=== PATIENT | male | born 1935 | race Caucasian/White ===

== ENCOUNTER 2017-04-29 10:24 | Day surgery (SDC) | payer MEDICARE, BC ==
[2017-04-23 16:37] VITALS: BMI 26.2
[~2017-04-29 10:24] MED LIST: DEXAMETHASONE SOD PHOSPHATE 10 MG/ML 1 ML VIAL IV ONE; FAMOTIDINE 20 MG/2 ML VIAL IV ONE; HYDROmorphone 1 MG/ML 1 ML SYRINGE IVP PRN; LACTATED RINGERS 1,000 ML IV SCH; LIDOCAINE 1% 20 ML VIAL (10MG/ML) FOR IV START INTRADERMA PRN; MIDAZOLAM 2 MG/2 ML VIAL IV PRN; ONDANSETRON 4 MG/2 ML VIAL IVP ONE; Pre Op ABX Message 1 EACH MISC MISCELLANE ONE; SCOPOLAMINE 1.5MG/72HR PATCH TRANSDERM ONE
[2017-04-29] MEDS ORDERED: ePHEDrine SULFATE/0.9% NACL/PF 50 MG/5 ML SYRINGE IV ONE (12:42)
[2017-04-29] MEDS ORDERED: PROPOFOL 10 MG/ML 20 ML VIAL IV ONE (12:42)
[2017-04-29] MEDS ORDERED: fentaNYL (PF) 50 MCG/ML 2 ML AMP ONE (12:42)
[2017-04-29] MEDS ORDERED: MIDAZOLAM 2 MG/2 ML VIAL ONE (12:42)
[2017-04-29] MEDS ORDERED: SUCCINYLCHOLINE CHLORIDE 100 MG/5 ML SYR IV ONE (12:42)
[2017-04-29] MEDS ORDERED: LIDOCAINE 1% INJ 10MG/ML (20 ML MDV) ONE (12:42)
[2017-04-29] MEDS ORDERED: BACITRACIN 500 UNIT/GM OINT 28.4 GM TUBE TOPICAL ONE (13:10)
[2017-04-29] MEDS ORDERED: BUPIVACAIN-EPI 0.5%-1:200,000 30 ML VIAL SQ ONE (13:10)
[2017-04-29] MEDS ORDERED: LIDOCAINE 2%-EPI 1:100,000 20 ML VIAL SQ ONE (13:11)
[2017-04-29 14:27] VITALS: RESP 16
[2017-04-29 14:32] VITALS: TEMP 97.8
--- NOTE | 2017-04-29 14:43 | P.OP ---
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 Anesthesia: GETA Surgeon: Wallace Guerra Estimated Blood Loss (ml): 5 Pathology: other (Left auricular specimen sent for frozen section) Condition: stable Disposition: PACU Indications for Procedure: This patient had a previous biopsy of his left ear which demonstrated a basal cell carcinoma of the anterior skin of the left ear. Wider resection was recommended. All risks, benefits, and alternative therapies were discussed in detail. Consent was obtained and all questions were answered. Operative Findings: The associated skin was removed from the left anterior part of the auricle and the deep margins came close therefore a resection of the auricular cartilage the to this lesion was required. The skin graft was placed over the posterior auricular skin. Description of Procedure: This patient was taken to the operative room and placed in the supine position. A general inhalation anesthetic was administered to the patient by mask and subsequently intubated by the department of anesthesia with a functioning IV line in place. Patient was monitored throughout the entire case by the department of anesthesia. The left ear was anesthetized sterilely prepped and draped in the usual fashion. The lesion was marked with 4 mm margins and excised with a 15 blade delicate plastic scissors and a Brown-Adson forceps and sent for frozen section with orientation sutures. The margins came back close the deep margin the lateral margins BACK negative. The cartilage of the associated area was then removed with a 15 blade and sent for permanent. A blue suture was placed on the adjacent margin. This left the posterior rectus skin in place. We harvested skin from the left postauricular region with an incision measuring 4.2 x 2.1 cm. The skin was removed and the donor site was closed in a complex fashion utilizing wide undermining in all directions. We prepped the skin edge and close this in a complex fashion utilizing a 4-0 Monocryl in the deep subcutaneous tissue 4-0 Monocryl in the deep dermal layer 4 -0 Monocryl and the superficial dermal layer and the skin was closed with a 50 rapid Vicryl in a running nonlocking fashion. Excellent approximation was obtained. The skin was then cut to size and placed as an overlay graft. A bolster dressing was applied and a [place]S ear dressing was placed. The patient tolerated this well and follow-up will be in the office in 1 week for recheck. Patient is to remove the Tali ear dressing in the next few hours.
[2017-04-29 16:00] VITALS: BP 131/76; PULSE 108
== END 2017-04-29 16:30 | disposition home or self-care (01) ==
LOC: OR 10:24
PROVIDERS: ATTEND Otolaryngology
DX: C44.219 Basal cell carcinoma of skin of left ear and external auricular canal (principal); I10 Essential (primary) hypertension; E78.5 Hyperlipidemia, unspecified; I48.91 Unspecified atrial fibrillation; J44.9 Chronic obstructive pulmonary disease, unspecified; G47.33 Obstructive sleep apnea (adult) (pediatric); K21.9 Gastro-esophageal reflux disease without esophagitis; Z87.891 Personal history of nicotine dependence; Z79.01 Long term (current) use of anticoagulants; Z79.51 Long term (current) use of inhaled steroids; Z79.899 Other long term (current) drug therapy
CPT/HCPCS: 69110; 15260; J2250; J1100; J2405; J2001; J3010; J0330; J2704; 88305; 88331; 88332

== ENCOUNTER → 2018-06-10 | Outpatient (CLI) | payer MEDICARE, BC ==
--- NOTE | 2018-06-13 12:05 | XR ---
EXAMINATION TYPE: XR cervical spine comp DATE OF EXAM: 06/10/2018 COMPARISON: None HISTORY: 82-year-old male with cervicalgia, neck pain started 2 days ago TECHNIQUE: 5 and lateral views FINDINGS: Degenerative changes of the C1 dens articulation. No predental space widening. There is grade 2 anter olisthesis at C3-C4 and grade 1 anterolisthesis at C3-C4. Hypertrophic facet arthropathy. Moderate to advanced dissection for degenerative change at C4-C5 and moderate at additional levels. On the right, there is moderate bony spondylotic neural foraminal narrowing at C3-C4 and mild additio nal levels. On the left, there is moderate spondylotic neural foraminal narrowing at C4-C5 and mild at C3-C4. Normal odontoid view. Some nonspecific heterotopic ossification posterior soft tissues at the C5 leve l. IMPRESSION: 1. Moderate to advanced spondylotic change with grade 2 anterolisthesis at C4-C5 and grade 1 anteroli sthesis at C3-C4. 2. Moderate bony spondylotic neuroforaminal narrowing on the right at C3-C4 and on the left at C4-C5.
== END ==
LOC: RADXRMAIN 12:27
PROVIDERS: ATTEND Internal Medicine
DX: M99.71 Connective tissue and disc stenosis of intervertebral foramina of cervical region (principal); M43.12 Spondylolisthesis, cervical region; M47.812 Spondylosis without myelopathy or radiculopathy, cervical region
CPT/HCPCS: 72050

== ENCOUNTER → 2019-08-03 | Outpatient (CLI) | payer MEDICARE, BC ==
--- NOTE | 2019-08-03 12:30 | XR ---
EXAMINATION TYPE: XR chest 2V DATE OF EXAM: 08/03/2019 COMPARISON: 04/20/2016 TECHNIQUE: PA and lateral views submitted. HISTORY: Shortness of breath FINDINGS: Heart is enlarged and is atherosclerotic change aorta. Subsegmental changes both lung bases. No overt failure. Biapical pleural thickening. No pneumothorax. Degenerative change of the spine and atherosc lerotic change aorta. Mild hyperinflation. IMPRESSION: 1. Cardiomegaly with basilar atelectasis favored over infiltrate correlate clinically.
== END | disposition home or self-care (01) ==
LOC: RADXRMAIN 11:55
PROVIDERS: ATTEND Internal Medicine
DX: J98.11 Atelectasis (principal); I51.7 Cardiomegaly
CPT/HCPCS: 71046

== ENCOUNTER → 2019-11-17 | Outpatient (CLI) | payer MEDICARE, BC ==
[2019-11-17 10:57] LABS: HCT 36.9 % (39.0-53.0); HGB 12.7 gm/dL (13.0-17.5); MCH 30.4 pg (25.0-35.0); MCHC 34.3 g/dL (31.0-37.0); MCV 88.6 fL (80.0-100.0); Mean Platelet Volume 7.8; Platelet Count 177 k/uL (150-450); RBC 4.17 m/uL (4.30-5.90); RDW 13.9 % (11.5-15.5); WBC 4.4 k/uL (3.8-10.6)
[2019-11-17 16:21] LABS: Anion Gap 11.6 mmol/L (4.00-12.00); Carbon Dioxide 34.4 mmol/L (21.6-31.8); Chol/HDL Ratio 2.84; LDL Cholesterol,Calculated 87.2 mg/dL (0.0-131.0); Non-African American GFR(CKD) 30.2 (60.0-200.0); VLDL Calculation 15.8 mg/dL (5.00-40.00)
== END | disposition home or self-care (01) ==
LOC: LABWHC1 09:50
PROVIDERS: ATTEND Internal Medicine Cardiovascular Disease
DX: E78.2 Mixed hyperlipidemia (principal)
CPT/HCPCS: 36415; 80051; 80061; 82565; 84450; 84460; 84520; 85027

== ENCOUNTER → 2019-12-06 | Outpatient (CLI) | payer MEDICARE, BC | END | disposition home or self-care (01) | LOC: CPPFTMAIN 09:02 | PROVIDERS: ATTEND Internal Medicine | DX: J44.9 Chronic obstructive pulmonary disease, unspecified (principal); R94.2 Abnormal results of pulmonary function studies | CPT/HCPCS: 94060; 94726; 94729 ==

== ENCOUNTER → 2020-01-05 | Outpatient (CLI) | payer MEDICARE, BC ==
--- NOTE | 2020-01-05 10:28 | US ---
EXAMINATION TYPE: US abdomen complete DATE OF EXAM: 01/05/2020 COMPARISON: NONE CLINICAL HISTORY: R94.5 ABN LIVER FUNCTION RESULTS. Patient stated takes at least 14 medications; gal lbladder removed; on Oxygen EXAM MEASUREMENTS: Liver Length: 12.6 cm Gallbladder Wall: surgically removed CBD: 0.3 cm Spleen: 11.2 cm Right Kidney: 9.0 x 7.0 x 3.8 cm Left Kidney: 9.1 x 4.4 x 4.1 cm Pancreas: hyperechoic, mid and tail obscured by overlying bowel gas Liver: hyperechoic periportal wall brightness is noted throughout; mildly heterogeneous Gallbladder: surgically removed Evidence for sonographic Munoz's sign: no CBD: wnl Spleen: wnl Right Kidney: No hydronephrosis or masses seen Left Kidney: No hydronephrosis or masses seen Upper IVC: wnl Abd Aorta: size is wnl at upper aorta as mid and distal aorta are obscured by overlying bowel gas. Bilateral pleural effusions are noted. Small amount of ascites is seen in RUQ and RLQ. IMPRESSION: 1. Moderate fatty infiltration liver. 2. Small bilateral pleural effusions
== END | disposition home or self-care (01) ==
LOC: RADUSWWP 08:53
PROVIDERS: ATTEND Internal Medicine
DX: K76.0 Fatty (change of) liver, not elsewhere classified (principal)
CPT/HCPCS: 76700

== ENCOUNTER 2020-01-20 13:48 | Inpatient (IN) | payer MEDICARE, BC ==
[2020-01-20] MEDS ORDERED: SODIUM CHLORIDE 0.9% 1,000 ML IV STA (13:52)
--- NOTE | 2020-01-20 13:58 | ED ---
SOB HPI - General Stated Complaint: SOB Time Seen by Provider: 01/20/20 13:48 Source: patient, EMS, RN notes reviewed Mode of arrival: EMS - History of Present Illness Initial Comments: This 84-year-old male with a history of COPD who uses 2 L of oxygen per day who states he been short of breath for about a week but got really bad this morning. Out of his medication that he uses at home. He denies any overt fevers chills sweats or chest pain. No other modifying factors. MD Complaint: shortness of breath - Related Data Home Medications Medication Instructions Recorded Confirmed Atorvastatin [Lipitor] 40 mg PO HS 04/12/14 04/23/17 Citalopram Hydrobromide 20 mg PO HS 04/12/14 04/23/17 [Citalopram HBr] Furosemide 20 mg PO QAM 04/12/14 04/29/17 Levothyroxine Sodium [Synthroid] 25 mcg PO QAM 04/12/14 04/29/17 Omeprazole 20 mg PO HS 04/12/14 04/29/17 Warfarin [Coumadin] 5 mg PO DAILY 04/12/14 04/23/17 Zolpidem Tartrate 10 mg PO HS PRN 04/12/14 04/29/17 Digoxin [Lanoxin] 250 mcg PO QAM 03/30/16 04/29/17 Fluticasone Nasal [place] [Flonase 1 spray NASAL DAILY 03/30/16 04/29/17 Nasal [place]] Fluticasone/Vilanterol [Breo 2 puff INHALATION DAILY 03/30/16 04/29/17 Ellipta 100-25 Mcg Iinhaler] Verapamil HCl [Verapamil ER] 120 mg PO HS 03/30/16 04/29/17 Multivitamins, Thera [Multivitamin 1 tab PO DAILY 04/23/17 04/23/17 (formulary)] Previous Rx's Medication Instructions Recorded Ferrous Sulfate [Feosol] 324 mg PO BID #60 tablet. 04/20/14 Hydrocodone/Acetaminophen [[place] 1 - 2 each PO Q6HR PRN #90 tab 04/20/14 5-325] Amoxicillin/Potassium Clav 1 each PO Q12HR #14 tab 04/29/17 [Augmentin 875-125 Tablet] Hydrocodone/Acetaminophen [[place] 1 - 2 each PO Q6HR PRN #40 tab 04/29/17 5-325] predniSONE [Deltasone] 20 mg PO DIRECTED #15 tab 04/29/17 Allergies Allergy/AdvReac Type Severity Reaction Status Date / Time No Known Allergies Allergy Verified 01/20/20 15:11 Review of Systems ROS Statement: Those systems with pertinent positive or pertinent negative responses have been documented in the HPI. ROS Other: All systems not noted in ROS Statement are negative. Past Medical History Past Medical History: Atrial Fibrillation, Cancer, COPD, GERD/Reflux, Hyperlipidemia, Hypertension, Osteoarthritis (OA), Sleep Apnea/CPAP/BIPAP, Thyroid Disorder Additional Past Medical History / Comment(s): NO CPAP. 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 History of Any Multi-Drug Resistant Organisms: None Reported Past Surgical History: Adenoidectomy, Cholecystectomy, Hernia Repair, Joint Replacement, Orthopedic Surgery, Tonsillectomy Additional Past Surgical History / Comment(s): TOTAL L KNEE TODAY 04/17/14 Past Anesthesia/Blood Transfusion Reactions: No Reported Reaction Past Psychological History: Depression Past Alcohol Use History: None Reported Additional Past Alcohol Use History / Comment(s): QUIT 5 YEARS (2010), SMOKED 62YR, 1 PPD. Past Drug Use History: None Reported - Past Family History Brother(s) Family Medical History: Cancer Additional Family Medical History / Comment(s): BROTHER OF LUNG CANCER. HE WAS A SMOKER. Son(s) Family Medical History: Cancer Father Family Medical History: No Reported History Additional Family Medical History / Comment(s): FATHER OF 89 YRS. General Exam - General Exam Comments Initial Comments: This is a well-developed sec appearing male who is awake alert oriented 3 General appearance: alert, anxious, in distress Head exam: Present: atraumatic, normocephalic, normal inspection Eye exam: Present: normal appearance, PERRL, EOMI. Absent: scleral icterus, conjunctival injection, periorbital swelling ENT exam: Present: mucous membranes dry Neck exam: Present: normal inspection, full ROM, other (No stridor JVD or bruits). Absent: tenderness, meningismus, lymphadenopathy Respiratory exam: Present: respiratory distress, wheezes, decreased breath sounds. Absent: rales, rhonchi, stridor Cardiovascular Exam: Present: normal rhythm, tachycardia. Absent: systolic murmur, diastolic murmur, rubs, gallop, clicks GI/Abdominal exam: Present: soft, normal bowel sounds. Absent: distended, tenderness, guarding, rebound, rigid Extremities exam: Present: normal inspection, full ROM, normal capillary refill. Absent: tenderness, pedal edema, joint swelling, calf tenderness Back exam: Present: normal inspection Neurological exam: Present: alert, oriented X3, CN II-XII intact Psychiatric exam: Present: normal affect, normal mood Skin exam: Present: warm, dry, intact, normal color. Absent: rash Course Vital Signs 01/20/20 01/20/20 01/20/20 14:04 14:25 14:30 Temperature 100.7 F H Pulse Rate 123 H 125 H 122 H Respiratory 32 H 30 H Rate Blood Pressure 188/71 188/71 O2 Sat by Pulse 93 L 48 L Oximetry 01/20/20 01/20/20 01/20/20 14:39 14:43 15:00 Temperature Pulse Rate 126 H 125 H 103 H Respiratory 26 H 20 Rate Blood Pressure 131/55 131/55 O2 Sat by Pulse 96 88 L Oximetry 01/20/20 15:30 Temperature Pulse Rate 104 H Respiratory 19 Rate Blood Pressure 127/77 O2 Sat by Pulse 99 Oximetry - Reevaluation(s) Reevaluation #1: 01/20/20 16:23 Reevaluation the patient's initial treatment revealed much improvement after the BiPAP was applied. Patient is resting comfortably in his vital signs did start to normalize. Reevaluation #2: 01/20/20 16:25 I did perform a focused exam of the patient does demonstrate improved lung sounds he is awake alert male breast sounds best seen on the right. Apparently within normal limits no peripheral edema seen at this time Reevaluation #3: 01/20/20 16:26 The lactic acid is likely secondary to Medical Decision Making - Medical Decision Making I did discuss findings with the patient's was present patient will be admitted case is discussed with Dr. Hsu - Lab Data Result diagrams: 01/20/20 15:40 01/20/20 15:40 Lab Results 01/20/20 01/20/20 01/20/20 Range/Units 15:40 15:40 15:40 WBC 4.6 (3.8-10.6) k/uL RBC 3.88 L (4.30-5.90) m/uL Hgb 11.8 L (13.0-17.5) gm/dL Hct 36.9 L (39.0-53.0) % MCV 95.2 D (80.0-100.0) fL MCH 30.3 (25.0-35.0) pg MCHC 31.8 (31.0-37.0) g/dL RDW 14.6 (11.5-15.5) % Plt Count 108 L (150-450) k/uL Neutrophils % 92 % Lymphocytes % 2 % Monocytes % 4 % Eosinophils % 1 % Basophils % 0 % Neutrophils # 4.3 (1.3-7.7) k/uL Lymphocytes # 0.1 L (1.0-4.8) k/uL Monocytes # 0.2 (0-1.0) k/uL Eosinophils # 0.0 (0-0.7) k/uL Basophils # 0.0 (0-0.2) k/uL Sodium 134 L (137-145) mmol/L Potassium 4.7 (3.5-5.1) mmol/L Chloride 105 (98-107) mmol/L Carbon Dioxide 21 L (22-30) mmol/L Anion Gap 8 mmol/L BUN 27 H (9-20) mg/dL Creatinine 1.69 H (0.66-1.25) mg/dL Est GFR (CKD-EPI)AfAm 43 (>60 ml/min/1.73 sqM) Est GFR (CKD-EPI)NonAf 37 (>60 ml/min/1.73 sqM) Glucose 114 H (74-99) mg/dL Plasma Lactic Acid Lorne 2.1 H* (0.7-2.0) mmol/L Calcium 8.4 (8.4-10.2) mg/dL Magnesium 2.2 (1.6-2.3) mg/dL Total Bilirubin 1.2 (0.2-1.3) mg/dL AST 49 (17-59) U/L ALT 23 (4-49) U/L Alkaline Phosphatase 68 (38-126) U/L Creatine Kinase 72 (55-170) U/L Total Protein 5.9 L (6.3-8.2) g/dL Albumin 3.3 L (3.5-5.0) g/dL - EKG Data -: EKG Interpreted by Me EKG Comments: Heart rate 123 QRS 106 QT since QTC 298/426 and complete right bundle-branch block with ventricular hypertrophy poor R-wave progression marked amount of art ifact. - Radiology Data Radiology results: report reviewed (Imaging was reviewed evidence of right lower lobe infiltrate and evidence of CHF with cardiomegaly.), image reviewed Critical Care Time Critical Care Time: Yes Critical Care Time: 39 minutes of critical care time which includes initial presentation with history physical labs x-rays multiple reevaluation the patient. Discussed with the patient family regarding findings discussed with the main physician admission orders and documentation of the above Disposition Clinical Impression: Acute exacerbation of chronic obstructive pulmonary disease, Acute respiratory distress syndrome in adult, Right lower lobe pneumonia, Dehydration Disposition: ADMITTED IP TO THIS HOSP Referrals: Nonstaff,Physician [REFERRING] - 1-2 days
[2020-01-20] MEDS ORDERED: IPRATROPIUM-ALBUTEROL 3 ML NEB INHALATION STA (14:08)
--- NOTE | 2020-01-20 14:48 | XR ---
EXAMINATION TYPE: XR chest 1V DATE OF EXAM: 01/20/2020 COMPARISON: 08/03/2019 HISTORY: Difficulty breathing TECHNIQUE: Single view FINDINGS: Heart is enlarged. There is blunting right costophrenic angle. There is mild pulmonary vasc ular congestion. There is airspace infiltrate right lower lobe. IMPRESSION: There is evidence of new congestive heart failure with right lower lobe infiltrate compar ed to old exam.
[2020-01-20 15:55] LABS: Basophils % (A) 0 %; Eosinophils % (A) 1 %; HCT 36.9 % (39.0-53.0); HGB 11.8 gm/dL (13.0-17.5); Lymphocytes # (A) 0.1 k/uL (1.0-4.8); Lymphocytes % (A) 2 %; MCH 30.3 pg (25.0-35.0); MCHC 31.8 g/dL (31.0-37.0); MCV 95.2 fL (80.0-100.0); Monocytes # (A) 0.2 k/uL (0-1.0); Monocytes % (A) 4 %; Neutrophils # (A) 4.3 k/uL (1.3-7.7); Neutrophils % (A) 92 %; Platelet Count 108 k/uL (150-450); RBC 3.88 m/uL (4.30-5.90); RDW 14.6 % (11.5-15.5); WBC 4.6 k/uL (3.8-10.6)
[2020-01-20 16:00] LABS: Albumin 3.3 g/dL (3.5-5.0); Calcium 8.4 mg/dL (8.4-10.2); Magnesium 2.2 mg/dL (1.6-2.3); Total Bilirubin 1.2 mg/dL (0.2-1.3); Total Protein 5.9 g/dL (6.3-8.2)
[2020-01-20 16:09] LABS: INR 4.6 (<1.2); Partial Thromboplastin Time 32.2 sec (22.0-30.0); Prothrombin Time 45.5 sec (9.0-12.0)
[2020-01-20 16:16] LABS: Potassium 4.7 mmol/L (3.5-5.1)
[2020-01-20] MEDS ORDERED: PNEUMONIA PROTOCOL UTILIZED 1 EACH MISC PO PRN (16:27)
[2020-01-20] MEDS ORDERED: AZITHROMYCIN 500 MG in SODIUM CHLORIDE 0.9% 250 ML IVPB STA (16:27)
[2020-01-20 16:28] LABS: D-Dimer 5.98 mg/L FEU (<0.60)
[2020-01-20] MEDS ORDERED: ZOLPIDEM 10 MG TAB PO PRN (16:32)
[2020-01-20] MEDS ORDERED: cefTRIAXone IN SWFI 1,000 MG/10 ML SYRINGE IVP STA (16:35)
[2020-01-20] MEDS: SODIUM CHLORIDE 0.9% 1,000 ML IV SCH (16:37)
[2020-01-20] MEDS ORDERED: predniSONE 20 MG TAB PO SCH (16:45)
[2020-01-20] MEDS ORDERED: FUROSEMIDE 10 MG/ML 4 ML VIAL IV STA (17:11)
--- NOTE | 2020-01-20 17:14 | ED ---
Medical Decision Making - Medical Decision Making Patient will be admitted as stated he does demonstrate evidence of CHF he did have a fever in addition to the medication will be placed on Lasix he does have mildly elevated troponin cardiology will be consulted - Lab Data Result diagrams: 01/20/20 15:40 01/20/20 15:40 Lab Results 01/20/20 01/20/20 01/20/20 Range/Units 15:40 15:40 15:40 WBC 4.6 (3.8-10.6) k/uL RBC 3.88 L (4.30-5.90) m/uL Hgb 11.8 L (13.0-17.5) gm/dL Hct 36.9 L (39.0-53.0) % MCV 95.2 D (80.0-100.0) fL MCH 30.3 (25.0-35.0) pg MCHC 31.8 (31.0-37.0) g/dL RDW 14.6 (11.5-15.5) % Plt Count 108 L (150-450) k/uL Neutrophils % 92 % Lymphocytes % 2 % Monocytes % 4 % Eosinophils % 1 % Basophils % 0 % Neutrophils # 4.3 (1.3-7.7) k/uL Lymphocytes # 0.1 L (1.0-4.8) k/uL Monocytes # 0.2 (0-1.0) k/uL Eosinophils # 0.0 (0-0.7) k/uL Basophils # 0.0 (0-0.2) k/uL PT 45.5 H (9.0-12.0) sec INR 4.6 H (<1.2) APTT 32.2 H (22.0-30.0) sec D-Dimer 5.98 H (<0.60) mg/L FEU Sodium 134 L (137-145) mmol/L Potassium 4.7 (3.5-5.1) mmol/L Chloride 105 (98-107) mmol/L Carbon Dioxide 21 L (22-30) mmol/L Anion Gap 8 mmol/L BUN 27 H (9-20) mg/dL Creatinine 1.69 H (0.66-1.25) mg/dL Est GFR (CKD-EPI)AfAm 43 (>60 ml/min/1.73 sqM) Est GFR (CKD-EPI)NonAf 37 (>60 ml/min/1.73 sqM) Glucose 114 H (74-99) mg/dL Plasma Lactic Acid Lorne (0.7-2.0) mmol/L Calcium 8.4 (8.4-10.2) mg/dL Magnesium 2.2 (1.6-2.3) mg/dL Total Bilirubin 1.2 (0.2-1.3) mg/dL AST 49 (17-59) U/L ALT 23 (4-49) U/L Alkaline Phosphatase 68 (38-126) U/L Creatine Kinase 72 (55-170) U/L Troponin I (0.000-0.034) ng/mL NT-Pro-B Natriuret Pep pg/mL Total Protein 5.9 L (6.3-8.2) g/dL Albumin 3.3 L (3.5-5.0) g/dL 01/20/20 01/20/20 01/20/20 Range/Units 15:40 15:40 15:40 WBC (3.8-10.6) k/uL RBC (4.30-5.90) m/uL Hgb (13.0-17.5) gm/dL Hct (39.0-53.0) % MCV (80.0-100.0) fL MCH (25.0-35.0) pg MCHC (31.0-37.0) g/dL RDW (11.5-15.5) % Plt Count (150-450) k/uL Neutrophils % % Lymphocytes % % Monocytes % % Eosinophils % % Basophils % % Neutrophils # (1.3-7.7) k/uL Lymphocytes # (1.0-4.8) k/uL Monocytes # (0-1.0) k/uL Eosinophils # (0-0.7) k/uL Basophils # (0-0.2) k/uL PT (9.0-12.0) sec INR (<1.2) APTT (22.0-30.0) sec D-Dimer (<0.60) mg/L FEU Sodium (137-145) mmol/L Potassium (3.5-5.1) mmol/L Chloride (98-107) mmol/L Carbon Dioxide (22-30) mmol/L Anion Gap mmol/L BUN (9-20) mg/dL Creatinine (0.66-1.25) mg/dL Est GFR (CKD-EPI)AfAm (>60 ml/min/1.73 sqM) Est GFR (CKD-EPI)NonAf (>60 ml/min/1.73 sqM) Glucose (74-99) mg/dL Plasma Lactic Acid Lorne 2.1 H* (0.7-2.0) mmol/L Calcium (8.4-10.2) mg/dL Magnesium (1.6-2.3) mg/dL Total Bilirubin (0.2-1.3) mg/dL AST (17-59) U/L ALT (4-49) U/L Alkaline Phosphatase (38-126) U/L Creatine Kinase (55-170) U/L Troponin I 0.059 H* (0.000-0.034) ng/mL NT-Pro-B Natriuret Pep 45148 pg/mL Total Protein (6.3-8.2) g/dL Albumin (3.5-5.0) g/dL Disposition Clinical Impression: Acute exacerbation of chronic obstructive pulmonary disease, Acute respiratory distress syndrome in adult, Right lower lobe pneumonia, Dehydration, Congestive heart failure Disposition: ADMITTED IP TO THIS HOSP Referrals: Nonstaff,Physician [REFERRING] - 1-2 days
[2020-01-20] MEDS: IPRATROPIUM-ALBUTEROL 3 ML NEB INHALATION SCH (20:40)
[2020-01-20] MEDS ORDERED: FUROSEMIDE 40 MG TAB PO SCH (21:00)
[2020-01-20] MEDS ORDERED: VERAPAMIL SR 120 MG TABLET.ER PO SCH (21:00)
[2020-01-20] MEDS ORDERED: FERROUS SULFATE 325 MG TAB PO SCH (21:00)
[2020-01-20 21:18] LABS: Glucose,Whole Blood 132 mg/dL (75-99)
[2020-01-20] MEDS: INSULIN ASPART (NovoLOG) 100 UNIT/ML VIAL SQ SCH (23:16)
[2020-01-20] MEDS: PANTOPRAZOLE 40 MG TABLET PO SCH (23:17)
[2020-01-20] MEDS: MIRTAZAPINE 15 MG TAB PO SCH (23:17)
[2020-01-20] MEDS: DOCUSATE 100 MG CAP PO SCH (23:17)
[2020-01-20] MEDS: ATORVASTATIN 40 MG TAB PO SCH (23:17)
[2020-01-20] MEDS: methylPREDNISolone SOD SUCCI 125 MG/2 ML VIAL IV SCH (23:18)
[2020-01-21] MEDS: IPRATROPIUM-ALBUTEROL 3 ML NEB INHALATION SCH ×7 (00:18→23:42)
[2020-01-21] MEDS: POTASSIUM CHLORIDE ER 20 MEQ TAB.ER PO SCH ×2 (00:34→08:17)
--- NOTE | 2020-01-21 03:53 | US ---
EXAMINATION TYPE: US groin LT DATE OF EXAM: 01/21/2020 COMPARISON: NONE CLINICAL HISTORY: rule out hematoma. Edema left leg, bruising left groin Large amount of soft tissue edema left groin, largest fluid collection = 2.0cm IMPRESSION: There is irregular fluid collection in the subcutaneous tissues that appears remote from the femoral artery and vein. Maximum thickness is 8 mm. This could be is subcutaneous hematoma. I do not see evidence for pseudoaneurysm.
--- NOTE | 2020-01-21 03:54 | US ---
EXAMINATION TYPE: US venous doppler duplex LE LT DATE OF EXAM: 01/21/2020 3:40 AM COMPARISON: NONE CLINICAL HISTORY: Rule out hematoma. edema left leg SIDE PERFORMED: left TECHNIQUE: The lower extremity deep venous system is examined utilizing real time linear array sonog mylene with graded compression, doppler sonography and color-flow sonography. VESSELS IMAGED: External Iliac Vein (EIV) Common Femoral Vein Deep Femoral Vein Greater Saphenous Vein * Femoral Vein Popliteal Vein Small Saphenous Vein * Proximal Calf Veins (* superficial vessels) Left Leg: *Technical limitations, patient uncooperative, unable to tolerate compressions - pushing t echnologist away. no evidence of DVT as visualized. large amount of soft tissue edema noted IMPRESSION: Limited exam shows no evidence of left leg deep vein thrombosis.
[2020-01-21 06:18] LABS: Glucose,Whole Blood 94 mg/dL (75-99)
[2020-01-21] MEDS: SODIUM CHLORIDE 0.9% 1,000 ML IV SCH ×3 (07:45→22:23)
[2020-01-21] MEDS: NYSTATIN 100,000 UNIT/GM POWD 15 GM TOPICAL SCH ×4 (08:06→22:18)
[2020-01-21] MEDS: FLUTICASONE 50MCG/SPRAY NASAL 16GM NASAL SCH (08:06)
[2020-01-21] MEDS: FUROSEMIDE 10 MG/ML 4 ML VIAL IV SCH ×2 (08:16→22:16)
[2020-01-21] MEDS: HYDROcodone/APAP 5-325MG 1 EACH TAB PO PRN ×2 (08:16→22:15)
[2020-01-21] MEDS: LEVOTHYROXINE 25 MCG TAB PO SCH (08:16)
[2020-01-21] MEDS: DOCUSATE 100 MG CAP PO SCH ×2 (08:16→22:16)
[2020-01-21] MEDS: methylPREDNISolone SOD SUCCI 125 MG/2 ML VIAL IV SCH (08:16)
[2020-01-21] MEDS: MULTIVITAMINS, THERA 1 EACH TAB PO SCH (08:17)
[2020-01-21] MEDS: INSULIN ASPART (NovoLOG) 100 UNIT/ML VIAL SQ SCH ×4 (08:18→22:16)
--- NOTE | 2020-01-21 08:27 | P.HPIM ---
History of Present Illness H&P Date: 01/21/20 Chief Complaint: Shortness of breath This is an 84-year-old male with history of COPD, atrial fibrillation, acid reflux, hyperlipidemia, hypertension, osteoarthritis, sleep apnea utilizing a CPAP machine, hypothyroidism. Patient lives with his and is often noncompliant. Patient often forgets to take his medications and for currently misses appointments with primary care. Patient has a son who lives close to home does have home care at this time within his home. Patient sees Dr. Hsu is a primary care physician she has discussed on multiple occasions utilizing assisted living facility to assist due to noncompliance. Patient has refused in the past. Patient came to the emergency room due to shortness of breath that has been going on for about a week. Patient states that the shortness of breath was worse today. He is out of his medications at home and was scheduled to see Dr. Hsu on Wednesday. Patient denies any fever or chills. Patient experienced episode of unconsciousness and not breathing pulse ox 80%. Patient was placed on BiPAP where he had improvement. Patient complaining of left groin pain. The site with firm with erythema and discoloration positive edema. Anterior most prominently medial measuring approximate 10 x 8 cm. Venous Doppler showed no DVT, ultrasound of the groin showed a subcutaneous hematoma. Patient is unsure if he had hurt himself. At this time patient is resting in bed confused. He has pulled his IV out mul tiple times. He is placed on high flow oxygen at 6 L. Patient states that his breathing is a little better compared to yesterday. Left groin still firm to touch with erythema and discoloration anterior and medial. Extremities cool to touch. Faint palpable bilateral pedal pulses noted. Review of Systems Review Of Systems: Constitutional: No fever, no chills, no night sweats. No weight change. Reports weakness and fatigue no lethargy. No daytime sleepiness. EENT: No headache. No blurred vision or double vision, no loss of vision. No loss of Hearing, no ringing in the ears, no dizziness. Reports nasal drainage and congestion. No epistaxis. No sore throat. Lungs: Reports shortness of breath and cough, no sputum production. No wheezing. Cardiovascular: No chest pain, no lower extremity edema. No palpitations. No paroxysmal nocturnal dyspnea. No orthopnea. No lightheadedness or dizziness. No syncopal episodes. Abdominal: no abdominal discomfort. No nausea, vomiting. no diarrhea. No constipation. No bloody or tarry stools. no loss of appetite. Genitourinary: No dysuria, increased frequency, urgency. No urinary retention. Musculoskeletal: Reports left groin pain No myalgias. No muscle weakness, no gait dysfunction, no frequent falls. No back pain. No neck pain. Integumentary: No wounds, no lesions. No rash or pruritus. No unusual bruising. No change in hair or nails. Neurologic: No aphasia. No facial droop. No change in mentation. No head injury. No headache. No paralysis. No paresthesia. Psychiatric: No depression. No anxiety. No mood swings. Endocrine: No abnormal blood sugars. No weight change. No excessive sweating or thirst. Past Medical History Past Medical History: Atrial Fibrillation, Cancer, COPD, GERD/Reflux, Hyperlipidemia, Hypertension, Osteoarthritis (OA), Sleep Apnea/CPAP/BIPAP, Thyroid Disorder Additional Past Medical History / Comment(s): NO CPAP. 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 History of Any Multi-Drug Resistant Organisms: None Reported Past Surgical History: Adenoidectomy, Cholecystectomy, Hernia Repair, Joint Replacement, Orthopedic Surgery, Tonsillectomy Additional Past Surgical History / Comment(s): TOTAL L KNEE TODAY 04/17/14 Past Anesthesia/Blood Transfusion Reactions: No Reported Reaction Past Psychological History: Depression Smoking Status: Former smoker Past Alcohol Use History: None Reported Additional Past Alcohol Use History / Comment(s): QUIT 5 YEARS (2010), SMOKED 62YR, 1 PPD. Past Drug Use History: None Reported - Past Family History Brother(s) Family Medical History: Cancer Additional Family Medical History / Comment(s): BROTHER OF LUNG CANCER. HE WAS A SMOKER. Son(s) Family Medical History: Cancer Father Family Medical History: No Reported History Additional Family Medical History / Comment(s): FATHER OF 89 YRS. Medications and Allergies Home Medications Medication Instructions Recorded Confirmed Type Atorvastatin [Lipitor] 40 mg PO HS 04/12/14 01/20/20 History Levothyroxine Sodium [Synthroid] 25 mcg PO DAILY 04/12/14 01/20/20 History Warfarin [Coumadin] 5 mg PO HS 04/12/14 01/20/20 History Fluticasone Nasal [place] [Flonase 1 spray EA NOSTRIL DAILY 03/30/16 01/20/20 History Nasal [place]] Budesonide [Pulmicort Flexhaler] 1 puff INHALATION RT-BID 01/20/20 01/20/20 History Docusate [Colace] 100 mg PO BID 01/20/20 01/20/20 History Furosemide [Lasix] 40 mg PO BID 01/20/20 01/20/20 History Metoprolol Succinate (ER) [Toprol 25 mg PO DAILY 01/20/20 01/20/20 History Xl] Mirtazapine [Remeron] 15 mg PO HS 01/20/20 01/20/20 History Potassium Chloride ER [K-Dur 20] 20 meq PO DAILY 01/20/20 01/20/20 History Umeclidinium Brm/Vilanterol Tr 1 puff INHALATION RT-DAILY 01/20/20 01/20/20 History [Anoro Ellipta 62.5-25 Mcg INH] Allergies Allergy/AdvReac Type Severity Reaction Status Date / Time No Known Allergies Allergy Verified 01/20/20 16:42 Physical Exam Vitals: Vital Signs Temp Pulse Pulse Resp BP BP Pulse Ox 01/21/20 08:00 96.5 F L 67 120/57 91 L 01/21/20 07:46 72 01/21/20 07:31 73 01/21/20 04:00 98.1 F 80 20 119/70 96 01/21/20 03:50 77 01/21/20 03:45 77 01/21/20 00:27 66 01/21/20 00:18 64 01/21/20 00:00 97.3 F L 68 16 93/68 98 01/20/20 20:51 74 01/20/20 20:42 72 01/20/20 20:00 98.8 F 63 18 87/48 97 01/20/20 18:46 98.9 F 72 21 103/59 99 01/20/20 18:13 98.9 F 72 21 103/59 99 01/20/20 18:12 85 189 H 91/51 97 01/20/20 17:48 98 F 86 14 99/71 98 01/20/20 16:35 79 14 99/71 98 01/20/20 15:30 104 H 19 127/77 99 01/20/20 15:00 103 H 20 131/55 88 L 01/20/20 14:43 125 H 01/20/20 14:39 126 H 26 H 131/55 96 01/20/20 14:30 122 H 30 H 188/71 48 L 01/20/20 14:25 125 H 01/20/20 14:04 100.7 F H 123 H 32 H 188/71 93 L Intake and Output 01/20/20 01/21/20 01/21/20 22:59 06:59 14:59 Other: Voiding Method Urinal Diaper # Voids 3 Weight 83.915 kg 84.5 kg General Appearance: 84-year-old confused cooperative, mild distress, older appears stated age. Neck HEENT: Supple, no lymphadenopathy, no thyroid enlargement, no carotid bruits. Lungs: Clear to auscultation without crackles or wheezes no rhonchi, no deform ity. Chest Wall: Chest wall normal expansion with deep inspiration no tenderness and no deformity was found on exam, no costochondral pain or discomfort. Heart: Irregular rate and rhythm, S1, S2 normal, no murmur, rub or gallop. Back: Symmetric, no curvature, ROM normal, no CVA tenderness. Abdomen: Soft, non-tender, no rebound or rigidity, no hepatosplenomegaly. Extremities: Faint bilateral pedal pulses, left groin edematous, firm, erythema and discoloration noted to anterior medial aspect with a mass measuring 10 x 8 cm, lower extremities cold to touch Pulses: 1+ faint and symmetric. Skin: Left groin see above all other Skin color, texture, tugor decreased no rashes or lesions. Neurologic: Alert oriented x2 self and place cranial nerves II through XII intact, no motor deficit, positive abnormal balance unsteady gait Results CBC & Chem 7: 01/21/20 08:19 01/21/20 08: Labs: Abnormal Lab Results - Last 24 Hours (Table) 01/20/20 01/20/20 01/20/20 Range/Units 15:40 15:40 15:40 RBC 3.88 L (4.30-5.90) m/uL Hgb 11.8 L (13.0-17.5) gm/dL Hct 36.9 L (39.0-53.0) % Plt Count 108 L (150-450) k/uL Lymphocytes # 0.1 L (1.0-4.8) k/uL PT 45.5 H (9.0-12.0) sec INR 4.6 H (<1.2) APTT 32.2 H (22.0-30.0) sec D-Dimer 5.98 H (<0.60) mg/L FEU Sodium 134 L (137-145) mmol/L Carbon Dioxide 21 L (22-30) mmol/L BUN 27 H (9-20) mg/dL Creatinine 1.69 H (0.66-1.25) mg/dL Glucose 114 H (74-99) mg/dL POC Glucose (mg/dL) (75-99) mg/dL Plasma Lactic Acid Lorne (0.7-2.0) mmol/L Troponin I (0.000-0.034) ng/mL Total Protein 5.9 L (6.3-8.2) g/dL Albumin 3.3 L (3.5-5.0) g/dL 01/20/20 01/20/20 01/20/20 Range/Units 15:40 15:40 18:55 RBC (4.30-5.90) m/uL Hgb (13.0-17.5) gm/dL Hct (39.0-53.0) % Plt Count (150-450) k/uL Lymphocytes # (1.0-4.8) k/uL PT (9.0-12.0) sec INR (<1.2) APTT (22.0-30.0) sec D-Dimer (<0.60) mg/L FEU Sodium (137-145) mmol/L Carbon Dioxide (22-30) mmol/L BUN (9-20) mg/dL Creatinine (0.66-1.25) mg/dL Glucose (74-99) mg/dL POC Glucose (mg/dL) (75-99) mg/dL Plasma Lactic Acid Lorne 2.1 H* 2.2 H* (0.7-2.0) mmol/L Troponin I 0.059 H* (0.000-0.034) ng/mL Total Protein (6.3-8.2) g/dL Albumin (3.5-5.0) g/dL 01/20/20 01/20/20 01/21/20 Range/Units 21:17 21:25 00:26 RBC (4.30-5.90) m/uL Hgb (13.0-17.5) gm/dL Hct (39.0-53.0) % Plt Count (150-450) k/uL Lymphocytes # (1.0-4.8) k/uL PT (9.0-12.0) sec INR (<1.2) APTT (22.0-30.0) sec D-Dimer (<0.60) mg/L FEU Sodium (137-145) mmol/L Carbon Dioxide (22-30) mmol/L BUN (9-20) mg/dL Creatinine (0.66-1.25) mg/dL Glucose (74-99) mg/dL POC Glucose (mg/dL) 132 H (75-99) mg/dL Plasma Lactic Acid Lorne 2.8 H* 3.3 H* (0.7-2.0) mmol/L Troponin I (0.000-0.034) ng/mL Total Protein (6.3-8.2) g/dL Albumin (3.5-5.0) g/dL 01/21/20 Range/Units 04:11 RBC (4.30-5.90) m/uL Hgb (13.0-17.5) gm/dL Hct (39.0-53.0) % Plt Count (150-450) k/uL Lymphocytes # (1.0-4.8) k/uL PT (9.0-12.0) sec INR (<1.2) APTT (22.0-30.0) sec D-Dimer (<0.60) mg/L FEU Sodium (137-145) mmol/L Carbon Dioxide (22-30) mmol/L BUN (9-20) mg/dL Creatinine (0.66-1.25) mg/dL Glucose (74-99) mg/dL POC Glucose (mg/dL) (75-99) mg/dL Plasma Lactic Acid Lorne 2.3 H* (0.7-2.0) mmol/L Troponin I (0.000-0.034) ng/mL Total Protein (6.3-8.2) g/dL Albumin (3.5-5.0) g/dL Microbiology - Last 24 Hours (Table) 01/20/20 14:28 Blood Culture Gram Stain - Preliminary Blood 01/20/20 14:28 Blood Culture - Final Blood Thrombosis Risk Factor Assmnt - Choose All That Apply Each Factor Represents 1 point: Abnormal pulmonary function (COPD), Heart failure (<1month), Serious lung disease incl. pneumonia (< 1month) Each Risk Factor Represents 3 Points: Age 75 years or older Thrombosis Risk Factor Assessment Total Risk Factor Score: 6 Thrombosis Risk Factor Assessment Level: High Risk Assessment and Plan Plan: 1. Acute hypoxic respiratory failure secondary to CHF/COPD possible pneumonia. Chest x-ray shows lower right lobe infiltrate. Sed rate, CRP and procalcintonin ordered Continue with Rocephin, hold azithromycin due to elevated INR. Obtain ABGs. Consult ID, start vancomycin. Continue high flow oxygen 2. Sepsis secondary to pneumonia. See above 3. COPD vs. CHF exacerbation. continue Lasix 40 mg, I and O's and weights daily, continue Solu-Medrol 40 mg IV every 6 4. Subcutaneous hematoma related to groin pain. Consult I&D, consult vascular surgery, nystatin apply 3 times a day 5. Hypertrophic cardiomyopathy. Continue Lasix 6. Diastolic congestive heart failure. Consult cardiology Continue Lasix, potassium chloride 20 mg by mouth daily 7. Metabolic encephalopathy, continue with Rocephin and vancomycin 8. subtherapeutic INR. Hold Coumadin. Repeat INR. Hold azithromycin 9. Chronic kidney disease, continue to monitor BUN and creatinine 10. Atrial fibrillation. INR 6.7, hold Coumadin 11. Hypertension. Metoprolol 25 mg by mouth at bedtime 12. Hyperlipidemia. Continue atorvastatin 40 mg by mouth at bedtime 13. Obstructive sleep apnea. Continue to use CPAP machine 14. Hypothyroidism. Continue levothyroxine 25mcg daily 15. Elevated troponin. Consult cardiology 16. Debility. Consult social work for possible subacute rehab, consult PTOT 17. DVT prophylaxis. Pneumatic compression sleeves 18. GI prophylaxis. Protonix 40 mg by mouth at bedtime 19. Covid 19 pending CODE STATUS: No code Discharge plan: Minimum of 2 nights day, Possible subacute rehab Impression and plan of care have been directed as dictated by the signing physician. Augusta Kamendat nurse practitioner acting as scribe for signing physician.
[2020-01-21 08:47] LABS: Calcium 8.6 mg/dL (8.4-10.2)
[2020-01-21 08:48] LABS: Potassium 4.4 mmol/L (3.5-5.1)
[2020-01-21 08:53] LABS: Basophils % (A) 0 %; Eosinophils % (A) 0 %; HCT 39.3 % (39.0-53.0); HGB 12.5 gm/dL (13.0-17.5); Hypochromasia Slight; Lymphocytes # (A) 0.2 k/uL (1.0-4.8); Lymphocytes % (A) 3 %; MCH 30.6 pg (25.0-35.0); MCHC 31.8 g/dL (31.0-37.0); MCV 96.2 fL (80.0-100.0); Mean Platelet Volume 10.6; Monocytes # (A) 0.3 k/uL (0-1.0); Monocytes % (A) 4 %; Neutrophils # (A) 6.9 k/uL (1.3-7.7); Neutrophils % (A) 92 %; RBC 4.09 m/uL (4.30-5.90); RDW 14.6 % (11.5-15.5); WBC 7.4 k/uL (3.8-10.6)
[2020-01-21 08:59] LABS: Prothrombin Time 68.8 sec (9.0-12.0)
[2020-01-21] MEDS ORDERED: FLUTICASONE INHALATION SCH (09:00)
[2020-01-21] MEDS ORDERED: FUROSEMIDE 20 MG TAB PO SCH (09:00)
[2020-01-21] MEDS ORDERED: DIGOXIN 250 MCG TAB PO SCH (09:00)
[2020-01-21] MEDS ORDERED: VILANTEROL INHALATION SCH (09:00)
[2020-01-21] MEDS ORDERED: WARFARIN 5 MG TAB PO SCH (09:00)
[2020-01-21 09:05] LABS: INR 6.7 (<1.2)
[2020-01-21 09:10] LABS: C Reactive Protein 72.2 mg/L (<10.0)
[2020-01-21 09:18] LABS: Platelet Count 74 k/uL (150-450)
[2020-01-21] MEDS: METOPROLOL SUCCINATE (ER) 25 MG TAB.ER.24H PO SCH (09:22)
[2020-01-21] MEDS ORDERED: VANCOMYCIN IV PER PHARMACY 1 EACH MISC MISCELLANE PRN (09:45)
[2020-01-21] MEDS: FLUTICASONE 110 MCG INHALER INHALATION SCH ×2 (09:52→20:21)
[2020-01-21 10:04] LABS: ABG Base Excess -1.2 mmol/L; ABG HCO3 24 mmol/L (21-25); ABG Oxygen Saturation 97.9 % (94-97); ABG PCO2 41 mmHg (35-45); ABG PH 7.37 (7.35-7.45); ABG PO2 106 mmHg (83-108); ABG TCO2 25 mmol/L (19-24); Allen Test Performed? Yes
--- NOTE | 2020-01-21 10:20 | XR ---
EXAMINATION TYPE: XR chest 1V portable DATE OF EXAM: 01/21/2020 HISTORY: [id number];[id number]. REFERENCE: Previous study dated 01/20/2020. FINDINGS: The heart enlarged. There is increasing opacity at the right lung base. This may represent a combination of fluid and atelectasis. There is some airspace disease behind the left heart border. I suspect small, bilateral effusions. I could not exclude some underlying pulmonary edema. IMPRESSION: 1. IMPROVING CHANGES OF PULMONARY EDEMA. 2. BIBASILAR AIRSPACE DISEASE. 3. RIGHT-SIDED PLEURAL EFFUSION.
[2020-01-21] MEDS ORDERED: VANCOMYCIN 1,500 MG in SODIUM CHLORIDE 0.9% 250 ML IVPB ONE (11:00)
--- NOTE | 2020-01-21 11:12 | P.GSCN ---
History of Present Illness History of present illness: 84-year-old white male, patient came with history of acute shortness of breath x-ray showed the right lobe infiltrate. Patient also has history of atrial fibrillation patient on Coumadin INR is 6.7 I was consulted for subcutaneous ecchymosis and hematoma noted in the left groin. Ultrasound shows no DVT and patient has a continuous hematoma Coumadin has been held. Neck examination neck is supple no bruit appreciated Chest crackles bilateral Abdomen is soft nontender vascular examination femorals are 1+ dorsalis pedis by the Doppler there is ecchymosis noted on the left groin area no expanding hematoma Plan is Coumadin has been held we will watch closely at this point is no ex panding hematoma we'll watch and we may repeat ultrasound follow with you thank you Past Medical History Past Medical History: Atrial Fibrillation, Cancer, COPD, GERD/Reflux, Hyperlipidemia, Hypertension, Osteoarthritis (OA), Sleep Apnea/CPAP/BIPAP, Thyroid Disorder Additional Past Medical History / Comment(s): NO CPAP. 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 History of Any Multi-Drug Resistant Organisms: None Reported Past Surgical History: Adenoidectomy, Cholecystectomy, Hernia Repair, Joint Replacement, Orthopedic Surgery, Tonsillectomy Additional Past Surgical History / Comment(s): TOTAL L KNEE TODAY 04/17/14 Past Anesthesia/Blood Transfusion Reactions: No Reported Reaction Past Psychological History: Depression Smoking Status: Former smoker Past Alcohol Use History: None Reported Additional Past Alcohol Use History / Comment(s): QUIT 5 YEARS (2010), SMOKED 62YR, 1 PPD. Past Drug Use History: None Reported - Past Family History Brother(s) Family Medical History: Cancer Additional Family Medical History / Comment(s): BROTHER OF LUNG CANCER. HE WAS A SMOKER. Son(s) Family Medical History: Cancer Father Family Medical History: No Reported History Additional Family Medical History / Comment(s): FATHER OF 89 YRS. Medications and Allergies Home Medications Medication Instructions Recorded Confirmed Type Atorvastatin [Lipitor] 40 mg PO HS 04/12/14 01/20/20 History Levothyroxine Sodium [Synthroid] 25 mcg PO DAILY 04/12/14 01/20/20 History Warfarin [Coumadin] 5 mg PO HS 04/12/14 01/20/20 History Fluticasone Nasal [place] [Flonase 1 spray EA NOSTRIL DAILY 03/30/16 01/20/20 History Nasal [place]] Budesonide [Pulmicort Flexhaler] 1 puff INHALATION RT-BID 01/20/20 01/20/20 History Docusate [Colace] 100 mg PO BID 01/20/20 01/20/20 History Furosemide [Lasix] 40 mg PO BID 01/20/20 01/20/20 History Metoprolol Succinate (ER) [Toprol 25 mg PO DAILY 01/20/20 01/20/20 History Xl] Mirtazapine [Remeron] 15 mg PO HS 01/20/20 01/20/20 History Potassium Chloride ER [K-Dur 20] 20 meq PO DAILY 01/20/20 01/20/20 History Umeclidinium Brm/Vilanterol Tr 1 puff INHALATION RT-DAILY 01/20/20 01/20/20 History [Anoro Ellipta 62.5-25 Mcg INH] Allergies Allergy/AdvReac Type Severity Reaction Status Date / Time No Known Allergies Allergy Verified 01/20/20 16:42 Surgical - Exam Vital Signs Temp Pulse Resp BP Pulse Ox 100.7 F H 123 H 18 188/71 90 L 01/20/20 14:04 01/20/20 14:04 01/20/20 14:04 01/20/20 14:04 01/20/20 14:04 Results - Labs 01/21/20 08:19 01/21/20 08:19 Abnormal Lab Results - Last 24 Hours (Table) 01/20/20 01/20/20 01/20/20 Range/Units 15:40 15:40 15:40 RBC 3.88 L (4.30-5.90) m/uL Hgb 11.8 L (13.0-17.5) gm/dL Hct 36.9 L (39.0-53.0) % Plt Count 108 L (150-450) k/uL Lymphocytes # 0.1 L (1.0-4.8) k/uL PT 45.5 H (9.0-12.0) sec INR 4.6 H (<1.2) APTT 32.2 H (22.0-30.0) sec D-Dimer 5.98 H (<0.60) mg/L FEU ABG Total CO2 (19-24) mmol/L ABG O2 Saturation (94-97) % Sodium 134 L (137-145) mmol/L Carbon Dioxide 21 L (22-30) mmol/L BUN 27 H (9-20) mg/dL Creatinine 1.69 H (0.66-1.25) mg/dL Glucose 114 H (74-99) mg/dL POC Glucose (mg/dL) (75-99) mg/dL Plasma Lactic Acid [place] (0.7-2.0) mmol/L Troponin I (0.000-0.034) ng/mL C-Reactive Protein (<10.0) mg/L Total Protein 5.9 L (6.3-8.2) g/dL Albumin 3.3 L (3.5-5.0) g/dL 01/20/20 01/20/20 01/20/20 Range/Units 15:40 15:40 18:55 RBC (4.30-5.90) m/uL Hgb (13.0-17.5) gm/dL Hct (39.0-53.0) % Plt Count (150-450) k/uL Lymphocytes # (1.0-4.8) k/uL PT (9.0-12.0) sec INR (<1.2) APTT (22.0-30.0) sec D-Dimer (<0.60) mg/L FEU ABG Total CO2 (19-24) mmol/L ABG O2 Saturation (94-97) % Sodium (137-145) mmol/L Carbon Dioxide (22-30) mmol/L BUN (9-20) mg/dL Creatinine (0.66-1.25) mg/dL Glucose (74-99) mg/dL POC Glucose (mg/dL) (75-99) mg/dL Plasma Lactic Acid [place] 2.1 H* 2.2 H* (0.7-2.0) mmol/L Troponin I 0.059 H* (0.000-0.034) ng/mL C-Reactive Protein (<10.0) mg/L Total Protein (6.3-8.2) g/dL Albumin (3.5-5.0) g/dL 01/20/20 01/20/20 01/21/20 Range/Units 21:17 21:25 00:26 RBC (4.30-5.90) m/uL Hgb (13.0-17.5) gm/dL Hct (39.0-53.0) % Plt Count (150-450) k/uL Lymphocytes # (1.0-4.8) k/uL PT (9.0-12.0) sec INR (<1.2) APTT (22.0-30.0) sec D-Dimer (<0.60) mg/L FEU ABG Total CO2 (19-24) mmol/L ABG O2 Saturation (94-97) % Sodium (137-145) mmol/L Carbon Dioxide (22-30) mmol/L BUN (9-20) mg/dL Creatinine (0.66-1.25) mg/dL Glucose (74-99) mg/dL POC Glucose (mg/dL) 132 H (75-99) mg/dL Plasma Lactic Acid [place] 2.8 H* 3.3 H* (0.7-2.0) mmol/L Troponin I (0.000-0.034) ng/mL C-Reactive Protein (<10.0) mg/L Total Protein (6.3-8.2) g/dL Albumin (3.5-5.0) g/dL 01/21/20 01/21/20 01/21/20 Range/Units 04:11 07:38 07:38 RBC (4.30-5.90) m/uL Hgb (13.0-17.5) gm/dL Hct (39.0-53.0) % Plt Count (150-450) k/uL Lymphocytes # (1.0-4.8) k/uL PT 68.8 H (9.0-12.0) sec INR 6.7 H* (<1.2) APTT (22.0-30.0) sec D-Dimer (<0.60) mg/L FEU ABG Total CO2 (19-24) mmol/L ABG O2 Saturation (94-97) % Sodium (137-145) mmol/L Carbon Dioxide (22-30) mmol/L BUN (9-20) mg/dL Creatinine (0.66-1.25) mg/dL Glucose (74-99) mg/dL POC Glucose (mg/dL) (75-99) mg/dL Plasma Lactic Acid [place] 2.3 H* 3.0 H* (0.7-2.0) mmol/L Troponin I (0.000-0.034) ng/mL C-Reactive Protein (<10.0) mg/L Total Protein (6.3-8.2) g/dL Albumin (3.5-5.0) g/dL 01/21/20 01/21/20 01/21/20 Range/Units 08:19 08:19 08:19 RBC 4.09 L (4.30-5.90) m/uL Hgb 12.5 L (13.0-17.5) gm/dL Hct (39.0-53.0) % Plt Count 74 L (150-450) k/uL Lymphocytes # 0.2 L (1.0-4.8) k/uL PT (9.0-12.0) sec INR (<1.2) APTT (22.0-30.0) sec D-Dimer (<0.60) mg/L FEU ABG Total CO2 (19-24) mmol/L ABG O2 Saturation (94-97) % Sodium (137-145) mmol/L Carbon Dioxide 19 L (22-30) mmol/L BUN 26 H (9-20) mg/dL Creatinine 1.56 H (0.66-1.25) mg/dL Glucose 108 H (74-99) mg/dL POC Glucose (mg/dL) (75-99) mg/dL Plasma Lactic Acid [place] (0.7-2.0) mmol/L Troponin I 0.100 H* (0.000-0.034) ng/mL C-Reactive Protein 72.2 H (<10.0) mg/L Total Protein (6.3-8.2) g/dL Albumin (3.5-5.0) g/dL 01/21/20 Range/Units 10:01 RBC (4.30-5.90) m/uL Hgb (13.0-17.5) gm/dL Hct (39.0-53.0) % Plt Count (150-450) k/uL Lymphocytes # (1.0-4.8) k/uL PT (9.0-12.0) sec INR (<1.2) APTT (22.0-30.0) sec D-Dimer (<0.60) mg/L FEU ABG Total CO2 25 H (19-24) mmol/L ABG O2 Saturation 97.9 H (94-97) % Sodium (137-145) mmol/L Carbon Dioxide (22-30) mmol/L BUN (9-20) mg/dL Creatinine (0.66-1.25) mg/dL Glucose (74-99) mg/dL POC Glucose (mg/dL) (75-99) mg/dL Plasma Lactic Acid [place]orne (0.7-2.0) mmol/L Troponin I (0.000-0.034) ng/mL C-Reactive Protein (<10.0) mg/L Total Protein (6.3-8.2) g/dL Albumin (3.5-5.0) g/dL Microbiology - Last 24 Hours (Table) 01/20/20 14:28 Blood Culture Gram Stain - Preliminary Blood 01/20/20 14:28 Blood Culture - Final Blood Diabetes panel 01/20/20 01/21/20 Range/Units 15:40 08:19 Sodium 134 L 137 (137-145) mmol/L Potassium 4.7 4.4 (3.5-5.1) mmol/L Chloride 105 107 (98-107) mmol/L Carbon Dioxide 21 L 19 L (22-30) mmol/L BUN 27 H 26 H (9-20) mg/dL Creatinine 1.69 H 1.56 H (0.66-1.25) mg/dL Glucose 114 H 108 H (74-99) mg/dL Calcium 8.4 8.6 (8.4-10.2) mg/dL AST 49 (17-59) U/L ALT 23 (4-49) U/L Alkaline Phosphatase 68 (38-126) U/L Total Protein 5.9 L (6.3-8.2) g/dL Albumin 3.3 L (3.5-5.0) g/dL Calcium panel 01/20/20 01/21/20 Range/Units 15:40 08:19 Calcium 8.4 8.6 (8.4-10.2) mg/dL Albumin 3.3 L (3.5-5.0) g/dL Pituitary panel 01/20/20 01/21/20 Range/Units 15:40 08:19 Sodium 134 L 137 (137-145) mmol/L Potassium 4.7 4.4 (3.5-5.1) mmol/L Chloride 105 107 (98-107) mmol/L Carbon Dioxide 21 L 19 L (22-30) mmol/L BUN 27 H 26 H (9-20) mg/dL Creatinine 1.69 H 1.56 H (0.66-1.25) mg/dL Glucose 114 H 108 H (74-99) mg/dL Calcium 8.4 8.6 (8.4-10.2) mg/dL Adrenal panel 01/20/20 01/21/20 Range/Units 15:40 08:19 Sodium 134 L 137 (137-145) mmol/L Potassium 4.7 4.4 (3.5-5.1) mmol/L Chloride 105 107 (98-107) mmol/L Carbon Dioxide 21 L 19 L (22-30) mmol/L BUN 27 H 26 H (9-20) mg/dL Creatinine 1.69 H 1.56 H (0.66-1.25) mg/dL Glucose 114 H 108 H (74-99) mg/dL Calcium 8.4 8.6 (8.4-10.2) mg/dL Total Bilirubin 1.2 (0.2-1.3) mg/dL AST 49 (17-59) U/L ALT 23 (4-49) U/L Alkaline Phosphatase 68 (38-126) U/L Total Protein 5.9 L (6.3-8.2) g/dL Albumin 3.3 L (3.5-5.0) g/dL
[2020-01-21 11:31] LABS: Glucose,Whole Blood 111 mg/dL (75-99)
--- NOTE | 2020-01-21 11:48 | PN ---
PROGRESS NOTE ADDENDUM: This is an 84-year-old gentleman who is admitted to hospital with shortness of breath with complex and multiple underlying medical problems including COPD, atrial fibrillation, hypertension, dyslipidemia, and sleep apnea. He came in primarily secondary to loss of consciousness and has a hematoma over the left groin, has a coagulopathy with a with an INR of 6.7. Detailed consultation note is dictated by my nurse practitioner Kalie. His admission seems to be related to cough with combination of problems but primarily seems to be related to sepsis. INR is elevated. We will hold the Coumadin. I will treat the patient with IV Lasix and beta blockers for acute exacerbation of chronic congestive heart failure. The patient has atrial fibrillation, but heart rate is well controlled. MMODL / IJN: [id number] /
[2020-01-21] MEDS: methylPREDNISolone SOD SUCCI 40 MG/ML 1 ML VIAL IV SCH ×3 (12:09→23:46)
--- NOTE | 2020-01-21 12:59 | P.CRDCN ---
History of Present Illness Consult date: 01/21/20 Reason for Consult (text): New onset heart failure, elevated troponin History of present illness: History of present illness: This is an 84-year-old male with past medical history of chronic atrial fibrillation on Coumadin, hypertension, hyperlipidemia, hypertrophic cardiomyopathy and obstructive sleep apnea, hypothyroidism, remote history of tobacco use, known history of being noncompliant. Patient has been following with Dr. Duncan in the office. Patient complains of shortness of breath for 1 week gradually worsening and had run out of his home medications. Patient also experienced an episode of unconsciousness and pulse ox was 80% and was placed on BiPAP with improvement. He was complaining of left groin pain and may have had some trauma to the area. No recent surgical intervention. Ultrasound of the area in the left groin revealed irregular fluid collection subcutaneous tissue surrounding arterial and venous structures. Subcutaneous hematoma suspected. Dr. Eli and Dr. Hill are on consult. Venous Doppler of the left lower extremity negative for DVT. Blood cultures showing gram-negative rods. Chest x-ray showed new heart failure with right lower lobe infiltrate. EKG was atrial fibrillation. Patient initially presented with heart rate in the 120s, blood pressure 188/71, pulse ox 90% on 4 L and febrile at 100.7. INR was 4.6, d-dimer 5.98. WBC 4.6, hemoglobin 11.8. Sodium 134, potassium 4.7, chloride 105, CO2 21, BUN 27 creatinine 1.69, blood sugar 114. Lactic acid 2.0. ProBNP 33,000. Troponin 0.059, 0.100, 0.108. INR this morning is 6.7. Patient is currently denying any chest pain or shortness of breath. Patient has been confused and uncooperative for staffing. 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 Review Of Systems: Unable to obtain due to confusion Physical examination: Gen: This is an 84-year-old male. He is resting in bed and looks to be fairly comfortable. VS: Afebrile, heart rate 70, blood pressure 83/47, pulse ox 94% on 6 L nasal cannula. HEENT: Head is atraumatic, normocephalic. Pupils equal, round. Sclerae is anicteric. NECK: Supple. No JVD. No lymphadenopathy. No thyromegaly. LUNGS: Clear to auscultation. No wheezes or rhonchi. No intercostal retractions. HEART: Irregularly irregular rate and rhythm. No murmur. ABDOMEN: Soft. Bowel sounds are present. No masses. No tenderness. EXTREMITIES: No pedal edema. No calf tenderness. Left groin area has mass with erythema and warmth to touch NEUROLOGICAL: Patient is awake, and confused. Generalized weakness noted. Assessment: Acute hypoxic respiratory failure secondary diastolic heart failure and possible pneumonia Acute on chronic heart failure Sepsis secondary to pneumonia or hematoma Chronic atrial fibrillation, presented with RVR, currently rate controlled Coagulopathy secondary to Coumadin and sepsis Elevated troponins most likely secondary to sepsis, possible non-ST elevated myocardial infarction Hypertension, currently hypotensive Hyperlipidemia Plan: Continue Lasix 40 mg IV every 12 hours Monitor I&O and daily weights Monitor electrolytes and renal function daily Obtained 2-D echocardiogram and Doppler study to assess cardiac structure and function Continue Toprol-XL 25 mg daily, Lipitor 40 mg daily Hold Coumadin and monitor INR Further recommendations to follow based on clinical course Thank you kindly for this consultation Nurse practitioner note has been reviewed, I agree with documented findings and plan of care. Patient was seen and examined. Past Medical History Past Medical History: Atrial Fibrillation, Cancer, COPD, GERD/Reflux, Hyperlipidemia, Hypertension, Osteoarthritis (OA), Sleep Apnea/CPAP/BIPAP, Thyroid Disorder Additional Past Medical History / Comment(s): NO CPAP. 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 History of Any Multi-Drug Resistant Organisms: None Reported Past Surgical History: Adenoidectomy, Cholecystectomy, Hernia Repair, Joint Replacement, Orthopedic Surgery, Tonsillectomy Additional Past Surgical History / Comment(s): TOTAL L KNEE TODAY 04/17/14 Past Anesthesia/Blood Transfusion Reactions: No Reported Reaction Past Psychological History: Depression Smoking Status: Former smoker Past Alcohol Use History: None Reported Additional Past Alcohol Use History / Comment(s): QUIT 5 YEARS (2010), SMOKED 62YR, 1 PPD. Past Drug Use History: None Reported - Past Family History Brother(s) Family Medical History: Cancer Additional Family Medical History / Comment(s): BROTHER OF LUNG CANCER. HE WAS A SMOKER. Son(s) Family Medical History: Cancer Father Family Medical History: No Reported History Additional Family Medical History / Comment(s): FATHER OF 89 YRS. Medications and Allergies Home Medications Medication Instructions Recorded Confirmed Type Atorvastatin [Lipitor] 40 mg PO HS 04/12/14 01/20/20 History Levothyroxine Sodium [Synthroid] 25 mcg PO DAILY 04/12/14 01/20/20 History Warfarin [Coumadin] 5 mg PO HS 04/12/14 01/20/20 History Fluticasone Nasal [place] [Flonase 1 spray EA NOSTRIL DAILY 03/30/16 01/20/20 History Nasal [place]] Budesonide [Pulmicort Flexhaler] 1 puff INHALATION RT-BID 01/20/20 01/20/20 History Docusate [Colace] 100 mg PO BID 01/20/20 01/20/20 History Furosemide [Lasix] 40 mg PO BID 01/20/20 01/20/20 History Metoprolol Succinate (ER) [Toprol 25 mg PO DAILY 01/20/20 01/20/20 History Xl] Mirtazapine [Remeron] 15 mg PO HS 01/20/20 01/20/20 History Potassium Chloride ER [K-Dur 20] 20 meq PO DAILY 01/20/20 01/20/20 History Umeclidinium Brm/Vilanterol Tr 1 puff INHALATION RT-DAILY 01/20/20 01/20/20 History [Anoro Ellipta 62.5-25 Mcg INH] Allergies Allergy/AdvReac Type Severity Reaction Status Date / Time No Known Allergies Allergy Verified 01/20/20 16:42 Physical Exam Vitals: Vital Signs Temp Pulse Pulse Resp BP BP Pulse Ox 01/21/20 12:00 97.0 F L 70 20 83/47 94 L 01/21/20 11:28 70 01/21/20 11:18 68 01/21/20 08:00 96.5 F L 67 20 120/57 91 L 01/21/20 07:46 72 01/21/20 07:31 73 01/21/20 04:00 98.1 F 80 20 119/70 96 01/21/20 03:50 77 01/21/20 03:45 77 01/21/20 00:27 66 01/21/20 00:18 64 01/21/20 00:00 97.3 F L 68 16 93/68 98 01/20/20 20:51 74 01/20/20 20:42 72 01/20/20 20:00 98.8 F 63 18 87/48 97 01/20/20 18:46 98.9 F 72 21 103/59 99 01/20/20 18:13 98.9 F 72 21 103/59 99 01/20/20 18:12 85 189 H 91/51 97 01/20/20 17:48 98 F 86 14 99/71 98 01/20/20 16:35 79 14 99/71 98 01/20/20 15:30 104 H 19 127/77 99 01/20/20 15:00 103 H 20 131/55 88 L 01/20/20 14:43 125 H 01/20/20 14:39 126 H 26 H 131/55 96 01/20/20 14:30 122 H 30 H 188/71 48 L 01/20/20 14:25 125 H 01/20/20 14:04 100.7 F H 123 H 32 H 188/71 93 L Intake and Output 01/20/20 01/21/20 01/21/20 22:59 06:59 14:59 Other: Voiding Method Urinal Diaper Diaper # Voids 3 1 Weight 83.915 kg 84.5 kg Results 01/21/20 08:19 01/21/20 08:19 Cardiac Enzymes 01/20/20 01/20/20 01/21/20 Range/Units 15:40 15:40 08:19 AST 49 (17-59) U/L Troponin I 0.059 H* 0.100 H* (0.000-0.034) ng/mL 01/21/20 Range/Units 11:24 AST (17-59) U/L Troponin I 0.108 H* (0.000-0.034) ng/mL Coagulation 01/20/20 01/21/20 Range/Units 15:40 07:38 PT 45.5 H 68.8 H (9.0-12.0) sec APTT 32.2 H (22.0-30.0) sec CBC 01/20/20 01/21/20 Range/Units 15:40 08:19 WBC 4.6 7.4 (3.8-10.6) k/uL RBC 3.88 L 4.09 L (4.30-5.90) m/uL Hgb 11.8 L 12.5 L (13.0-17.5) gm/dL Hct 36.9 L 39.3 (39.0-53.0) % Plt Count 108 L 74 L (150-450) k/uL Comprehensive Metabolic Panel 01/20/20 01/21/20 Range/Units 15:40 08:19 Sodium 134 L 137 (137-145) mmol/L Potassium 4.7 4.4 (3.5-5.1) mmol/L Chloride 105 107 (98-107) mmol/L Carbon Dioxide 21 L 19 L (22-30) mmol/L BUN 27 H 26 H (9-20) mg/dL Creatinine 1.69 H 1.56 H (0.66-1.25) mg/dL Glucose 114 H 108 H (74-99) mg/dL Calcium 8.4 8.6 (8.4-10.2) mg/dL AST 49 (17-59) U/L ALT 23 (4-49) U/L Alkaline Phosphatase 68 (38-126) U/L Total Protein 5.9 L (6.3-8.2) g/dL Albumin 3.3 L (3.5-5.0) g/dL Current Medications Generic Name Dose Route Start Last Admin Trade Name Freq PRN Reason Stop Dose Admin Hydrocodone Bitart/Acetaminophen 2 each 01/20/20 16:32 01/21/20 08:16 [place] 5-325 PO 2 each Q6HR PRN Administration Pain Albuterol/Ipratropium 3 ml 01/20/20 20:00 01/21/20 11:18 Duoneb 0.5 Mg-3 Mg/3 Ml Soln INHALATION 3 ml RT-Q4H CARMEL Administration Atorvastatin Calcium 40 mg 01/20/20 21:00 01/20/20 23:17 Lipitor PO 40 mg HS CARMEL Administration Docusate Sodium 100 mg 01/20/20 21:00 01/21/20 08:16 Colace PO 100 mg BID CARMEL Administration Fluticasone Propionate 1 spray 01/21/20 09:00 01/21/20 08:06 Flonase Nasal [place] NASAL Not Given DAILY CARMEL Fluticasone Propionate 1 puff 01/21/20 08:00 01/21/20 09:52 Flovent 110 Mcg Inhaler INHALATION 1 puff RT-BID CARMEL Administration Furosemide 40 mg 01/21/20 09:00 01/21/20 08:16 Lasix IV 40 mg Q12HR CARMEL Administration Sodium Chloride 1,000 mls @ 130 mls/hr 01/20/20 16:30 01/21/20 11:48 Saline 0.9% IV Not Given .Q7H42M CARMEL Ceftriaxone Sodium 1 gm/ 50 mls @ 100 mls/hr 01/21/20 09:00 01/21/20 08:17 Sodium Chloride IVPB 01/24/20 09:01 100 mls/hr Q24HR CARMEL Administration Vancomycin HCl 1,500 mg/ 250 mls @ 125 mls/hr 01/21/20 11:00 01/21/20 10:34 Sodium Chloride IVPB 01/21/20 12:59 125 mls/hr ONCE ONE Administration Vancomycin HCl 1,500 mg/ 250 mls @ 125 mls/hr 01/22/20 00:00 Sodium Chloride IVPB Q16H CARMEL Insulin Aspart 0 unit 01/20/20 21:00 01/21/20 11:48 Novolog SQ Not Given ACHS [facility] Protocol Levothyroxine Sodium 25 mcg 01/21/20 06:30 01/21/20 08:16 Synthroid PO 25 mcg DAILY@0630 CARMEL Administration Methylprednisolone Sodium Succinate 40 mg 01/21/20 12:00 01/21/20 12:09 Solu-Medrol IV 40 mg Q6HR CARMEL Administration Metoprolol Succinate 25 mg 01/21/20 09:00 01/21/20 09:22 Toprol Xl PO 25 mg DAILY CARMEL Administration Mirtazapine 15 mg 01/20/20 21:00 01/20/20 23:17 Remeron PO 15 mg HS CARMEL Administration Miscellaneous Information 1 each 01/20/20 16:27 Pneumonia Protocol Utilized PO ONCE PRN Per Protocol Multivitamins 1 each 01/21/20 09:00 01/21/20 08:17 Theragran PO 1 each DAILY CARMEL Administration Nystatin 1 applic 01/21/20 02:45 01/21/20 08:17 Mycostatin Powder TOPICAL 01/31/20 02:46 Not Given TID CARMEL Pantoprazole Sodium 40 mg 01/20/20 21:00 01/20/20 23:17 Protonix PO 40 mg HS CARMEL Administration Potassium Chloride 20 meq 01/20/20 20:15 01/21/20 08:17 K-Dur 20 PO 20 meq DAILY CARMEL Administration Intake and Output 01/20/20 01/21/20 01/21/20 22:59 06:59 14:59 Other: Voiding Method Urinal Diaper Diaper # Voids 3 1 Weight 83.915 kg 84.5 kg 01/21/20 08:19 01/21/20 08:19
[2020-01-21 16:29] LABS: Glucose,Whole Blood 149 mg/dL (75-99)
[2020-01-21] MEDS ORDERED: AZITHROMYCIN 500 MG TAB PO SCH (17:00)
[2020-01-21 20:19] LABS: Glucose,Whole Blood 158 mg/dL (75-99)
[2020-01-21] MEDS: PANTOPRAZOLE 40 MG TABLET PO SCH (22:15)
[2020-01-21] MEDS: MIRTAZAPINE 15 MG TAB PO SCH (22:16)
[2020-01-21] MEDS: ATORVASTATIN 40 MG TAB PO SCH (22:16)
--- NOTE | 2020-01-21 23:24 | P.CONS ---
History of Present Illness - Reason for Consult Consult date: 01/21/20 Left groin hematoma and bacteremia Requesting physician: Dutch Hsu - Chief Complaint Mental status changes and shortness of breath x days - History of Present Illness Patient is 84-year-old male with a past medical history significant for atrial fibrillation COPD patient has been brought into the ER for evaluation of mental status changes and increasing shortness of breath upon to the history provided by the the patient seemed to be getting a repeat more agitated and confused and not taking his medication was also noticed to have increasing shortness of breath however results a history of any cough or choking on the food and no nausea no vomiting no abdominal pain or any diarrhea on arrival to the orthopedist did have low-grade fever 100.7 however the patient did have a normal white count chest x-ray with changes suggestive CHF and possible right lower lobe pneumonia patient was initially started on Rocephin and Zithromax he did have blood culture drawn which came positive for gram-negative bacilli vancomycin was added and facility was consulted and the patient was noticed to have a left groin hematoma that has been confirmed on ultrasound vascular surgery has seen the patient and recommended to hold his Coumadin and watch his silver to work closely most information has been obtained from review the chart and talking to the at the bedside the patient was pleasantly confused and did not provide any history Review of Systems Positive points has been mentioned in HPI complete review could not be obtained because of his underlying mental status Past Medical History Past Medical History: Atrial Fibrillation, Cancer, COPD, GERD/Reflux, Hyperlipidemia, Hypertension, Osteoarthritis (OA), Sleep Apnea/CPAP/BIPAP, Thyroid Disorder Additional Past Medical History / Comment(s): NO CPAP. 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 History of Any Multi-Drug Resistant Organisms: None Reported Past Surgical History: Adenoidectomy, Cholecystectomy, Hernia Repair, Joint Replacement, Orthopedic Surgery, Tonsillectomy Additional Past Surgical History / Comment(s): TOTAL L KNEE TODAY 04/17/14 Past Anesthesia/Blood Transfusion Reactions: No Reported Reaction Past Psychological History: Depression Smoking Status: Former smoker Past Alcohol Use History: None Reported Additional Past Alcohol Use History / Comment(s): QUIT 5 YEARS (2010), SMOKED 62YR, 1 PPD. Past Drug Use History: None Reported - Past Family History Brother(s) Family Medical History: Cancer Additional Family Medical History / Comment(s): BROTHER OF LUNG CANCER. HE WAS A SMOKER. Son(s) Family Medical History: Cancer Father Family Medical History: No Reported History Additional Family Medical History / Comment(s): FATHER OF 89 YRS. Medications and Allergies Home Medications Medication Instructions Recorded Confirmed Type Atorvastatin [Lipitor] 40 mg PO HS 04/12/14 01/20/20 History Levothyroxine Sodium [Synthroid] 25 mcg PO DAILY 04/12/14 01/20/20 History Warfarin [Coumadin] 5 mg PO HS 04/12/14 01/20/20 History Fluticasone Nasal [place] [Flonase 1 spray EA NOSTRIL DAILY 03/30/16 01/20/20 History Nasal [place]] Budesonide [Pulmicort Flexhaler] 1 puff INHALATION RT-BID 01/20/20 01/20/20 History Docusate [Colace] 100 mg PO BID 01/20/20 01/20/20 History Furosemide [Lasix] 40 mg PO BID 01/20/20 01/20/20 History Metoprolol Succinate (ER) [Toprol 25 mg PO DAILY 01/20/20 01/20/20 History Xl] Mirtazapine [Remeron] 15 mg PO HS 01/20/20 01/20/20 History Potassium Chloride ER [K-Dur 20] 20 meq PO DAILY 01/20/20 01/20/20 History Umeclidinium Brm/Vilanterol Tr 1 puff INHALATION RT-DAILY 01/20/20 01/20/20 History [Anoro Ellipta 62.5-25 Mcg INH] Allergies Allergy/AdvReac Type Severity Reaction Status Date / Time No Known Allergies Allergy Verified 01/20/20 16:42 Physical Exam Vitals: Vital Signs Temp Pulse Pulse Resp BP BP Pulse Ox 01/21/20 16:00 97.9 F 68 18 107/59 95 01/21/20 15:30 70 18 01/21/20 15:15 72 18 01/21/20 12:00 97.0 F L 70 20 83/47 94 L 01/21/20 11:28 70 01/21/20 11:18 68 01/21/20 08:00 96.5 F L 67 20 120/57 91 L 01/21/20 07:46 72 01/21/20 07:31 73 08/02/20 04:00 98.1 F 80 20 119/70 96 01/21/20 03:50 77 01/21/20 03:45 77 01/21/20 00:27 66 01/21/20 00:18 64 01/21/20 00:00 97.3 F L 68 16 93/68 98 01/20/20 20:51 74 01/20/20 20:42 72 01/20/20 20:00 98.8 F 63 18 87/48 97 01/20/20 18:46 98.9 F 72 21 103/59 99 01/20/20 18:13 98.9 F 72 21 103/59 99 01/20/20 18:12 85 189 H 91/51 97 Intake and Output 01/21/20 01/21/20 01/21/20 06:59 14:59 22:59 Other: Voiding Method Diaper Diaper Diaper # Voids 3 1 Weight 84.5 kg GENERAL DESCRIPTION: An elderly male lying in bed, no distress. No tachypnea or accessory muscle of respiration use. HEENT: Shows Pallor , no scleral icterus. Oral mucous membrane is dry. No phar yngeal erythema or thrush NECK: Trachea central, no thyromegaly. LUNGS: Unlabored breathing. Decreased visceral base. No wheeze or crackle. HEART: S1, S2, irregular rate and rhythm. No loud murmur ABDOMEN: Soft, no tenderness , guarding or rigidity, no organomegaly EXTREMITIES: No edema of feet. SKIN: No rash, no masses palpable. NEUROLOGICAL: The patient is lethargic and orientation could not be determined Results CBC & Chem 7: 01/21/20 08:19 01/21/20 08:19 Labs: Abnormal Lab Results - Last 24 Hours (Table) 01/20/20 01/20/20 01/20/20 Range/Units 18:55 21:17 21:25 RBC (4.30-5.90) m/uL Hgb (13.0-17.5) gm/dL Plt Count (150-450) k/uL Lymphocytes # (1.0-4.8) k/uL PT (9.0-12.0) sec INR (<1.2) ABG Total CO2 (19-24) mmol/L ABG O2 Saturation (94-97) % Carbon Dioxide (22-30) mmol/L BUN (9-20) mg/dL Creatinine (0.66-1.25) mg/dL Glucose (74-99) mg/dL POC Glucose (mg/dL) 132 H (75-99) mg/dL Plasma Lactic Acid [place] 2.2 H* 2.8 H* (0.7-2.0) mmol/L Troponin I (0.000-0.034) ng/mL C-Reactive Protein (<10.0) mg/L 01/21/20 01/21/20 01/21/20 Range/Units 00:26 04:11 07:38 RBC (4.30-5.90) m/uL Hgb (13.0-17.5) gm/dL Plt Count (150-450) k/uL Lymphocytes # (1.0-4.8) k/uL PT 68.8 H (9.0-12.0) sec INR 6.7 H* (<1.2) ABG Total CO2 (19-24) mmol/L ABG O2 Saturation (94-97) % Carbon Dioxide (22-30) mmol/L BUN (9-20) mg/dL Creatinine (0.66-1.25) mg/dL Glucose (74-99) mg/dL POC Glucose (mg/dL) (75-99) mg/dL Plasma Lactic Acid [place] 3.3 H* 2.3 H* (0.7-2.0) mmol/L Troponin I (0.000-0.034) ng/mL C-Reactive Protein (<10.0) mg/L 01/21/20 01/21/20 01/21/20 Range/Units 07:38 08:19 08:19 RBC 4.09 L (4.30-5.90) m/uL Hgb 12.5 L (13.0-17.5) gm/dL Plt Count 74 L (150-450) k/uL Lymphocytes # 0.2 L (1.0-4.8) k/uL PT (9.0-12.0) sec INR (<1.2) ABG Total CO2 (19-24) mmol/L ABG O2 Saturation (94-97) % Carbon Dioxide 19 L (22-30) mmol/L BUN 26 H (9-20) mg/dL Creatinine 1.56 H (0.66-1.25) mg/dL Glucose 108 H (74-99) mg/dL POC Glucose (mg/dL) (75-99) mg/dL Plasma Lactic Acid [place] 3.0 H* (0.7-2.0) mmol/L Troponin I (0.000-0.034) ng/mL C-Reactive Protein 72.2 H (<10.0) mg/L 01/21/20 01/21/20 01/21/20 Range/Units 08:19 10:01 11:24 RBC (4.30-5.90) m/uL Hgb (13.0-17.5) gm/dL Plt Count (150-450) k/uL Lymphocytes # (1.0-4.8) k/uL PT (9.0-12.0) sec INR (<1.2) ABG Total CO2 25 H (19-24) mmol/L ABG O2 Saturation 97.9 H (94-97) % Carbon Dioxide (22-30) mmol/L BUN (9-20) mg/dL Creatinine (0.66-1.25) mg/dL Glucose (74-99) mg/dL POC Glucose (mg/dL) (75-99) mg/dL Plasma Lactic Acid [place] (0.7-2.0) mmol/L Troponin I 0.100 H* 0.108 H* (0.000-0.034) ng/mL C-Reactive Protein (<10.0) mg/L 01/21/20 01/21/20 01/21/20 Range/Units 11:24 11:29 14:35 RBC (4.30-5.90) m/uL Hgb (13.0-17.5) gm/dL Plt Count (150-450) k/uL Lymphocytes # (1.0-4.8) k/uL PT (9.0-12.0) sec INR (<1.2) ABG Total CO2 (19-24) mmol/L ABG O2 Saturation (94-97) % Carbon Dioxide (22-30) mmol/L BUN (9-20) mg/dL Creatinine (0.66-1.25) mg/dL Glucose (74-99) mg/dL POC Glucose (mg/dL) 111 H (75-99) mg/dL Plasma Lactic Acid [place] 2.5 H* 2.1 H* (0.7-2.0) mmol/L Troponin I (0.000-0.034) ng/mL C-Reactive Protein (<10.0) mg/L 01/21/20 Range/Units 16:28 RBC (4.30-5.90) m/uL Hgb (13.0-17.5) gm/dL Plt Count (150-450) k/uL Lymphocytes # (1.0-4.8) k/uL PT (9.0-12.0) sec INR (<1.2) ABG Total CO2 (19-24) mmol/L ABG O2 Saturation (94-97) % Carbon Dioxide (22-30) mmol/L BUN (9-20) mg/dL Creatinine (0.66-1.25) mg/dL Glucose (74-99) mg/dL POC Glucose (mg/dL) 149 H (75-99) mg/dL Plasma Lactic Acid [place] (0.7-2.0) mmol/L Troponin I (0.000-0.034) ng/mL C-Reactive Protein (<10.0) mg/L Microbiology - Last 24 Hours (Table) 01/20/20 14:28 Blood Culture Gram Stain - Preliminary Blood Blood Culture - Preliminary Escherichia coli 01/20/20 14:28 Blood Culture - Final Blood Assessment and Plan Assessment: 1- patient with gram-negative bacteremia source more likely urinary source as the patient has been admitted hospital with mental status changes and confusion though no UA has been obtained during this admission patient also have evidence of right lower lobe infiltrate/pneumonia with concern for possible aspiration pneumonitis And no evidence of any gram-positive infection (1) E coli bacteremia Current Visit: Yes Status: Acute Code(s): R78.81 - BACTEREMIA; B96.20 - UNSP ESCHERICHIA COLI THE CAUSE OF DISEASES [facility] SNOMED Code(s): 610336663671 (2) Right lower lobe pneumonia Current Visit: Yes Status: Acute Code(s): J18.9 - PNEUMONIA, UNSPECIFIED ORGANISM SNOMED Code(s): 491570110 Plan: 1- we will obtain a UA and culture 2- discontinue Rocephin and vancomycin 3- start the patient Unasyn 3 g every 8 hours We will follow on clinical condition and cultures to further adjust medication if needed Thank you for this consultation will follow this patient with you Time with Patient: Greater than 30
[2020-01-21] MEDS: AMPICILLIN-SULBACTAM 3 GM in SODIUM CHLORIDE 0.9% 100 ML IVPB SCH (23:46)
[2020-01-22] MEDS ORDERED: VANCOMYCIN 1,500 MG in SODIUM CHLORIDE 0.9% 250 ML IVPB SCH ×2
[2020-01-22] MEDS: IPRATROPIUM-ALBUTEROL 3 ML NEB INHALATION SCH ×5 (03:45→21:20)
[2020-01-22 06:46] LABS: Glucose,Whole Blood 184 mg/dL (75-99)
[2020-01-22] MEDS: methylPREDNISolone SOD SUCCI 40 MG/ML 1 ML VIAL IV SCH ×2 (07:01→13:15)
[2020-01-22] MEDS: LEVOTHYROXINE 25 MCG TAB PO SCH (07:01)
[2020-01-22] MEDS: INSULIN ASPART (NovoLOG) 100 UNIT/ML VIAL SQ SCH ×3 (07:02→21:45)
[2020-01-22 07:03] LABS: Appearance,Urine Clear (Clear); Bilirubin,Urine Negative (Negative); Blood,Urine Negative (Negative); Color,Urine Light Yellow; Glucose,Urine (UA) Negative (Negative); Ketones,Urine Negative (Negative); Leukocyte Esterase,Urine Negative (Negative); Nitrite,Urine Negative (Negative); Protein,Urine Trace (Negative); Specific Gravity,Urine 1.012 (1.001-1.035); Urobilinogen,Urine <2.0 mg/dL (<2.0)
[2020-01-22] MEDS: SODIUM CHLORIDE 0.9% 1,000 ML IV SCH ×2 (07:05→16:57)
[2020-01-22 08:13] LABS: Basophils % (A) 0 %; Eosinophils % (A) 0 %; HCT 37.1 % (39.0-53.0); HGB 11.4 gm/dL (13.0-17.5); Hypochromasia Slight; Lymphocytes # (A) 0.1 k/uL (1.0-4.8); Lymphocytes % (A) 2 %; MCH 30.1 pg (25.0-35.0); MCHC 30.7 g/dL (31.0-37.0); Mean Platelet Volume 8.5; Monocytes # (A) 0.3 k/uL (0-1.0); Monocytes % (A) 5 %; Neutrophils # (A) 5.2 k/uL (1.3-7.7); Neutrophils % (A) 92 %; RBC 3.79 m/uL (4.30-5.90); RDW 14.8 % (11.5-15.5); WBC 5.6 k/uL (3.8-10.6)
[2020-01-22 08:15] LABS: Platelet Count 78 k/uL (150-450)
[2020-01-22 08:27] LABS: Prothrombin Time 69.6 sec (9.0-12.0)
[2020-01-22] MEDS: AMPICILLIN-SULBACTAM 3 GM in SODIUM CHLORIDE 0.9% 100 ML IVPB SCH ×2 (09:12→16:57)
[2020-01-22 09:13] LABS: Albumin 3.1 g/dL (3.5-5.0); Calcium 8.3 mg/dL (8.4-10.2); Total Bilirubin 0.7 mg/dL (0.2-1.3); Total Protein 5.8 g/dL (6.3-8.2)
[2020-01-22] MEDS: METOPROLOL SUCCINATE (ER) 25 MG TAB.ER.24H PO SCH (09:13)
[2020-01-22] MEDS: MULTIVITAMINS, THERA 1 EACH TAB PO SCH (09:13)
[2020-01-22] MEDS: POTASSIUM CHLORIDE ER 20 MEQ TAB.ER PO SCH (09:13)
[2020-01-22] MEDS: FUROSEMIDE 10 MG/ML 4 ML VIAL IV SCH ×2 (09:13→21:44)
[2020-01-22] MEDS: DOCUSATE 100 MG CAP PO SCH ×2 (09:13→21:44)
--- NOTE | 2020-01-22 09:16 | P.PN ---
Subjective Progress Note Date: 01/22/20 Principal diagnosis: Heart failure with preserved LV function This is an 84-year-old gentleman with history of long-standing persistent atrial fibrillation, hypertension, dyslipidemia, and hypertrophic cardiomyopathy was admitted to the hospital with acute hypoxic respiratory failure secondary to heart failure as well as pneumonia. The patient was seen today. Overall and from the cardiac vascular standpoint overview, he seems to be stable. Distal on Lasix IV. The creatinine is not back yet. On examination he seems to be euvolemic. Otherwise he denies any symptoms of chest pain or chest discomfort. We will follow-up with a creatinine. Meanwhile I will continue the current medical regimen and continue following up with the patient. Objective - Vital Signs Vital signs: Vital Signs Temp 97.5 F L 01/22/20 04:00 Pulse 81 01/22/20 04:00 Resp 18 01/22/20 04:00 BP 119/56 01/22/20 04:00 Pulse Ox 95 01/22/20 04:00 Intake & Output 01/21/20 01/22/20 01/22/20 18:59 06:59 18:59 Intake Total 120 540 Output Total 200 Balance 120 340 Weight 82.5 kg Intake: Oral 120 540 Output: Urine 200 Other: Voiding Method Diaper Diaper # Voids 1 1 - Constitutional General appearance: Present: no acute distress - Respiratory Respiratory: bilateral: diminished - Cardiovascular Heart sounds: normal: S1, S2 Abnormal Heart Sounds: Present: systolic murmur - Labs CBC & Chem 7: 01/22/20 07:46 01/22/20 07:46 Labs: Abnormal Lab Results - Last 24 Hours (Table) 01/21/20 01/21/20 01/21/20 Range/Units 08:19 08:19 10:01 RBC 4.09 L (4.30-5.90) m/uL Hgb 12.5 L (13.0-17.5) gm/dL Hct (39.0-53.0) % MCHC (31.0-37.0) g/dL Plt Count 74 L (150-450) k/uL Lymphocytes # 0.2 L (1.0-4.8) k/uL ABG Total CO2 25 H (19-24) mmol/L ABG O2 Saturation 97.9 H (94-97) % BUN (9-20) mg/dL Creatinine (0.66-1.25) mg/dL Glucose (74-99) mg/dL POC Glucose (mg/dL) (75-99) mg/dL Plasma Lactic Acid Lorne (0.7-2.0) mmol/L Calcium (8.4-10.2) mg/dL Troponin I 0.100 H* (0.000-0.034) ng/mL Total Protein (6.3-8.2) g/dL Albumin (3.5-5.0) g/dL Urine Protein (Negative) 01/21/20 01/21/20 01/21/20 Range/Units 11:24 11:24 11:29 RBC (4.30-5.90) m/uL Hgb (13.0-17.5) gm/dL Hct (39.0-53.0) % MCHC (31.0-37.0) g/dL Plt Count (150-450) k/uL Lymphocytes # (1.0-4.8) k/uL ABG Total CO2 (19-24) mmol/L ABG O2 Saturation (94-97) % BUN (9-20) mg/dL Creatinine (0.66-1.25) mg/dL Glucose (74-99) mg/dL POC Glucose (mg/dL) 111 H (75-99) mg/dL Plasma Lactic Acid Lorne 2.5 H* (0.7-2.0) mmol/L Calcium (8.4-10.2) mg/dL Troponin I 0.108 H* (0.000-0.034) ng/mL Total Protein (6.3-8.2) g/dL Albumin (3.5-5.0) g/dL Urine Protein (Negative) 01/21/20 01/21/20 01/21/20 Range/Units 14:35 16:28 18:11 RBC (4.30-5.90) m/uL Hgb (13.0-17.5) gm/dL Hct (39.0-53.0) % MCHC (31.0-37.0) g/dL Plt Count (150-450) k/uL Lymphocytes # (1.0-4.8) k/uL ABG Total CO2 (19-24) mmol/L ABG O2 Saturation (94-97) % BUN (9-20) mg/dL Creatinine (0.66-1.25) mg/dL Glucose (74-99) mg/dL POC Glucose (mg/dL) 149 H (75-99) mg/dL Plasma Lactic Acid Lorne 2.1 H* 2.5 H* (0.7-2.0) mmol/L Calcium (8.4-10.2) mg/dL Troponin I (0.000-0.034) ng/mL Total Protein (6.3-8.2) g/dL Albumin (3.5-5.0) g/dL Urine Protein (Negative) 01/21/20 01/22/20 01/22/20 Range/Units 20:09 06:00 06:26 RBC (4.30-5.90) m/uL Hgb (13.0-17.5) gm/dL Hct (39.0-53.0) % MCHC (31.0-37.0) g/dL Plt Count (150-450) k/uL Lymphocytes # (1.0-4.8) k/uL ABG Total CO2 (19-24) mmol/L ABG O2 Saturation (94-97) % BUN (9-20) mg/dL Creatinine (0.66-1.25) mg/dL Glucose (74-99) mg/dL POC Glucose (mg/dL) 158 H 184 H (75-99) mg/dL Plasma Lactic Acid Lorne (0.7-2.0) mmol/L Calcium (8.4-10.2) mg/dL Troponin I (0.000-0.034) ng/mL Total Protein (6.3-8.2) g/dL Albumin (3.5-5.0) g/dL Urine Protein Trace H (Negative) 01/22/20 01/22/20 Range/Units 07:46 07:46 RBC 3.79 L (4.30-5.90) m/uL Hgb 11.4 L (13.0-17.5) gm/dL Hct 37.1 L (39.0-53.0) % MCHC 30.7 L (31.0-37.0) g/dL Plt Count 78 L (150-450) k/uL Lymphocytes # 0.1 L (1.0-4.8) k/uL ABG Total CO2 (19-24) mmol/L ABG O2 Saturation (94-97) % BUN 33 H (9-20) mg/dL Creatinine 1.49 H (0.66-1.25) mg/dL Glucose 136 H (74-99) mg/dL POC Glucose (mg/dL) (75-99) mg/dL Plasma Lactic Acid Lorne (0.7-2.0) mmol/L Calcium 8.3 L (8.4-10.2) mg/dL Troponin I (0.000-0.034) ng/mL Total Protein 5.8 L (6.3-8.2) g/dL Albumin 3.1 L (3.5-5.0) g/dL Urine Protein (Negative) Microbiology - Last 24 Hours (Table) 01/20/20 14:28 Blood Culture Gram Stain - Preliminary Blood Blood Culture - Preliminary Escherichia coli Assessment and Plan Assessment: Assessment #1 acute hypoxic respiratory failure which has resolved #2 acute on chronic congestive heart failure secondary to diastolic dysfunction #3 long-standing persistent atrial fibrillation #4 multiple comorbid conditions Plan #1 continue the current medical regimen #2 follow-up on the creatinine #3 follow-up with the patient
[2020-01-22] MEDS: FLUTICASONE 110 MCG INHALER INHALATION SCH ×2 (09:17→21:20)
[2020-01-22 09:20] LABS: INR 6.8 (<1.2)
[2020-01-22] MEDS ORDERED: PHYTONADIONE ORAL 5 MG/5 ML ORAL.SYRG PO STA (10:09)
--- NOTE | 2020-01-22 11:00 | ECHOF ---
Referral Reason:LVF MEASUREMENTS -------- HEIGHT: 182.9 cm WEIGHT: 86.2 kg BP: IVSd: 1.6 cm (0.6 - 1.1) LVIDd: 4.3 cm (3.9 - 5.3) LVPWd: 2.0 cm (0.6 - 1.1) IVSs: 1.7 cm LVIDs: 3.1 cm LVPWs: 1.9 cm LA Diam: 8.0 cm (2.7 - 3.8) RVIDd: 3.9 cm (< 3.3) LAESV Index (A-L): 114.64 ml/m Ao Diam: 3.3 cm (2.0 - 3.7) AV Cusp: 1.2 cm (1.5 - 2.6) MV E Colt: 1.56 m/s MV DecT: 270 ms MV A Colt: 0.04 m/s MV E/A Ratio: 37.79 AV maxP.63 mmHg AV meanP.32 mmHg AR PHT: 452 ms RAP: 15.00 mmHg RVSP: 50.83 mmHg FINDINGS -------- Sinus rhythm. This was a technically good study. There is moderate concentric left ventricular hypertrophy. Overall left ventricular systolic functi on is low-normal with, an EF between 50 - 55 %. The right ventricle is normal in size. The left atrium is markedly dilated. LA is severely dilated >40 ml/m2 The right atrium is markedly enlarged. There is mild aortic regurgitation. There is mild aortic stenosis present. Peak/mean gradient acr oss the Aortic Valve is 19.63mmHg / 10.32mmHg. The mitral valve leaflets are mildly thickened. Mild mitral annular calcification present. No heather ral regurgitation. The peak and mean MV gradients are 11.70mmHg 4.74mmHg as measured by doppler. Mild mitral stenosis. Moderate tricuspid regurgitation present. There is moderate pulmonary hypertension. Trace/mild (physiologic) pulmonic regurgitation. The aortic root size is normal. There is no pericardial effusion. CONCLUSIONS -------- 1. There is moderate concentric left ventricular hypertrophy. 2. Overall left ventricular systolic function is low-normal with, an EF between 50 - 55 %. 3. The right ventricle is normal in size. 4. The left atrium is markedly dilated. 5. LA is severely dilated >40 ml/m2 6. The right atrium is markedly enlarged. 7. There is mild aortic regurgitation. 8. There is mild aortic stenosis present. 9. Peak/mean gradient across the Aortic Valve is 19.63mmHg / 10.32mmHg. 10. The mitral valve leaflets are mildly thickened. 11. Mild mitral annular calcification present. 12. No mitral regurgitation. 13. The peak and mean MV gradients are 11.70mmHg 4.74mmHg as measured by doppler. 14. Mild mitral stenosis. 15. Moderate tricuspid regurgitation present. 16. There is moderate pulmonary hypertension. 17. Trace/mild (physiologic) pulmonic regurgitation. NOTCHER: Gerda Hastings RDCS
--- NOTE | 2020-01-22 12:58 | NM ---
EXAMINATION TYPE: NM pul vent and perfuse DATE OF EXAM: 01/22/2020 COMPARISON: 01/21/2020 HISTORY: Shortness of breath TECHNIQUE: Utilizing inhalation of 36.5 mCi Tc 99m DTPA aerosol and intravenous injection of 4.9 mCi of Tc 99m MAA, ventilation and perfusion images are acquired post injection in multiple projections. FINDINGS: Exam is limited by suboptimal ventilation uptake which could be associated with chronic obstructive p ulmonary disease. There is clumping of radiotracer centrally within the airway limiting the exam. The re is to be a matched defect within the lateral margin of the right lower lobe. Triple match is seen on the chest x-ray. Additional areas of matched defect involving the right lower lobe are noted. IMPRESSION: Intermediate probability for pulmonary embolism.
[2020-01-22] MEDS: FLUTICASONE 50MCG/SPRAY NASAL 16GM NASAL SCH (13:08)
[2020-01-22] MEDS: NYSTATIN 100,000 UNIT/GM POWD 15 GM TOPICAL SCH ×3 (13:08→21:44)
--- NOTE | 2020-01-22 13:17 | P.PN ---
Subjective Progress Note Date: 01/22/20 This is an 84-year-old male with history of COPD, atrial fibrillation, acid reflux, hyperlipidemia, hypertension, osteoarthritis, sleep apnea utilizing a CPAP machine, hypothyroidism. Patient lives with his and is often noncompliant. Patient often forgets to take his medications and for currently m isses appointments with primary care. Patient has a son who lives close to home does have home care at this time within his home. Patient sees Dr. Hsu is a primary care physician she has discussed on multiple occasions utilizing assisted living facility to assist due to noncompliance. Patient has refused in the past. Patient came to the emergency room due to shortness of breath that has been going on for about a week. Patient states that the shortness of breath was worse today. He is out of his medications at home and was scheduled to see Dr. Hsu on Wednesday. Patient denies any fever or chills. Patient experienced episode of unconsciousness and not breathing pulse ox 80%. Patient was placed on BiPAP where he had improvement. Patient complaining of left groin pain. The site with firm with erythema and discoloration positive edema. Anterior most prominently medial measuring approximate 10 x 8 cm. Venous Doppler showed no DVT, ultrasound of the groin showed a subcutaneous hematoma. Patient is unsure if he had hurt himself. At this time patient is resting in bed confused. He has pulled his IV out multiple times. He is placed on high flow oxygen at 6 L. Patient states that his breathing is a little better compared to yesterday. Left groin still firm to touch with erythema and discoloration anterior and medial. Extremities cool to touch. Faint palpable bilateral pedal pulses noted. 01/21: Patient has been seen by Dr. Hill with recommendations for on Unasyn for E. coli bacteremia and right lower lobe pneumonia. Urinalysis was clear with nitrate and leukoesterase negative. Patient has been afebrile, heart rate 88, blood pressure 136/69, pulse ox 94% on high flow 6 L nasal cannula. Repeat blood work reveals WBC 5.6, hemoglobin 11.4, platelet count 78, INR 6.8. BUN 33 and creatinine 1.49. Cardiology is following with recommendations to continue current medication. Echocardiogram reveals EF of 50-55% with moderate concentric left ventricular hypertrophy, mild aortic stenosis, mild mitral stenosis, moderate tricuspid regurgitation, moderate pulmonary hypertension. VQ scan is intermediate probability for pulmonary embolism. Consult was admitted for pulmonary medicine. COVID-19 remains pending. Review Of Systems: Constitutional: No fever, no chills, no night sweats. No weight change. Reports weakness and fatigue. No daytime sleepiness. EENT: No headache. No blurred vision or double vision, no loss of vision. No loss of Hearing, no ringing in the ears, no dizziness. Reports nasal drainage and congestion. No epistaxis. No sore throat. Lungs: Reports shortness of breath and cough, sputum production, wheezing. Cardiovascular: No chest pain, no lower extremity edema. No palpitations. No paroxysmal nocturnal dyspnea. No orthopnea. No lightheadedness or dizziness. No syncopal episodes. Abdominal: no abdominal discomfort. No nausea, vomiting. no diarrhea. No constipation. No bloody or tarry stools. no loss of appetite. Genitourinary: No dysuria, increased frequency, urgency. No urinary retention. Musculoskeletal: Reports left groin pain No myalgias. No muscle weakness, no gait dysfunction, no frequent falls. No back pain. No neck pain. Integumentary: No wounds, no lesions. No rash or pruritus. No unusual bruising. No change in hair or nails. Neurologic: No aphasia. No facial droop. Reports change in mentation. No head injury. No headache. No paralysis. No paresthesia. Psychiatric: No depression. No anxiety. No mood swings. Endocrine: No abnormal blood sugars. No weight change. No excessive sweating or thirst. Physical examination General Appearance: 84-year-old confused cooperative, mild distress, older than stated age. Neck HEENT: Supple, no lymphadenopathy, no thyroid enlargement, no carotid bruits. Lungs: Crackles bilateral with scattered expiratory wheeze, mild accessory muscle usage. Chest Wall: Chest wall normal expansion with deep inspiration no tenderness and no deformity was found on exam, no costochondral pain or discomfort. Heart: Irregular rate and rhythm, S1, S2 normal, no murmur, rub or gallop. Back: Symmetric, no curvature, ROM normal, no CVA tenderness. Abdomen: Soft, non-tender, no rebound or rigidity, no hepatosplenomegaly. Extremities: Faint bilateral pedal pulses, left groin edematous, firm, erythema and discoloration noted to anterior medial aspect with a mass measuring 10 x 8 cm, lower extremities Pulses: 1+ faint and symmetric. Neurologic: Patient is awake, confused, generalized weakness noted. Assessment and plan 1. Acute hypoxic respiratory failure secondary to acute on chronic diastolic heart failure, COPD exacerbation and possible pneumonia. Chest x-ray shows l ower right lobe infiltrate. Continue high flow oxygen, consult with pulmonary medicine added. Continue DuoNeb treatments every 4 hours, Flovent 1 puff twice daily, Lasix 40 mg IV every 12 hours, Solu-Medrol 40 mg IV every 6 hours. 2. Sepsis and E. coli bacteremia. Continue Unasyn per Dr. Hill. 3. COPD exacerbation. Continue Solu-Medrol 40 mg IV every 6 4. Subcutaneous hematoma related to groin pain. Consult I&D, consult vascular surgery, nystatin apply 3 times a day 5. Hypertrophic cardiomyopathy. Continue Lasix 6. Acute on chronic Diastolic congestive heart failure. Consult cardiology Continue Lasix, potassium chloride 20 mg by mouth daily 7. Septic encephalopathy. Continue above treatment. 8. Coagulopathy. Hold Coumadin. Repeat INR. Hold azithromycin 9. Acute kidney injury with chronic kidney disease stage III. Continue IV fluids, monitor renal function daily. 10. Persistent Atrial fibrillation. Hold Coumadin. Continue Toprol-XL 25 mg daily. 11. Hypertension. Metoprolol 25 mg by mouth at bedtime 12. Hyperlipidemia. Continue atorvastatin 40 mg by mouth at bedtime 13. Obstructive sleep apnea. Continue to use CPAP machine 14. Hypothyroidism. Continue levothyroxine 25mcg daily 15. Elevated troponin secondary to sepsis. Cardiology consult appreciated. 16. Debility. Consult social work for possible subacute rehab, consult PTOT 17. DVT prophylaxis. Pneumatic compression sleeves 18. GI prophylaxis. Protonix 40 mg by mouth at bedtime 19. Thrombocytopenia secondary to sepsis. 20. COVID-19 testing CODE STATUS: No code Discharge plan: subacute rehab. Impression and plan of care have been directed as dictated by the signing physician. Kalie Alejo nurse practitioner acting as scribe for signing physician. Objective - Vital Signs Vital signs: Vital Signs Temp 97.5 F L 01/22/20 04:00 Pulse 75 01/22/20 12:00 Resp 18 01/22/20 12:00 BP 136/69 01/22/20 12:00 Pulse Ox 94 L 01/22/20 12:00 Intake & Output 01/21/20 01/22/20 01/22/20 18:59 06:59 18:59 Intake Total 120 780 Output Total 200 Balance 120 580 Weight 82.5 kg Intake: Oral 120 780 Output: Urine 200 Other: Voiding Method Diaper Diaper Diaper # Voids 1 1 - Labs CBC & Chem 7: 01/22/20 07:46 01/22/20 07:46 Labs: Abnormal Lab Results - Last 24 Hours (Table) 01/21/20 01/21/20 01/21/20 Range/Units 11:24 14:35 16:28 RBC (4.30-5.90) m/uL Hgb (13.0-17.5) gm/dL Hct (39.0-53.0) % MCHC (31.0-37.0) g/dL Plt Count (150-450) k/uL Lymphocytes # (1.0-4.8) k/uL PT (9.0-12.0) sec INR (<1.2) BUN (9-20) mg/dL Creatinine (0.66-1.25) mg/dL Glucose (74-99) mg/dL POC Glucose (mg/dL) 149 H (75-99) mg/dL Plasma Lactic Acid Lorne 2.1 H* (0.7-2.0) mmol/L Calcium (8.4-10.2) mg/dL Total Protein (6.3-8.2) g/dL Albumin (3.5-5.0) g/dL Procalcitonin 3.65 H (0.02-0.09) ng/mL Urine Protein (Negative) 01/21/20 01/21/20 01/22/20 Range/Units 18:11 20:09 06:00 RBC (4.30-5.90) m/uL Hgb (13.0-17.5) gm/dL Hct (39.0-53.0) % MCHC (31.0-37.0) g/dL Plt Count (150-450) k/uL Lymphocytes # (1.0-4.8) k/uL PT (9.0-12.0) sec INR (<1.2) BUN (9-20) mg/dL Creatinine (0.66-1.25) mg/dL Glucose (74-99) mg/dL POC Glucose (mg/dL) 158 H (75-99) mg/dL Plasma Lactic Acid Lorne 2.5 H* (0.7-2.0) mmol/L Calcium (8.4-10.2) mg/dL Total Protein (6.3-8.2) g/dL Albumin (3.5-5.0) g/dL Procalcitonin (0.02-0.09) ng/mL Urine Protein Trace H (Negative) 01/22/20 01/22/20 01/22/20 Range/Units 06:26 07:46 07:46 RBC 3.79 L (4.30-5.90) m/uL Hgb 11.4 L (13.0-17.5) gm/dL Hct 37.1 L (39.0-53.0) % MCHC 30.7 L (31.0-37.0) g/dL Plt Count 78 L (150-450) k/uL Lymphocytes # 0.1 L (1.0-4.8) k/uL PT 69.6 H (9.0-12.0) sec INR 6.8 H* (<1.2) BUN (9-20) mg/dL Creatinine (0.66-1.25) mg/dL Glucose (74-99) mg/dL POC Glucose (mg/dL) 184 H (75-99) mg/dL Plasma Lactic Acid Lorne (0.7-2.0) mmol/L Calcium (8.4-10.2) mg/dL Total Protein (6.3-8.2) g/dL Albumin (3.5-5.0) g/dL Procalcitonin (0.02-0.09) ng/mL Urine Protein (Negative) 01/22/20 Range/Units 07:46 RBC (4.30-5.90) m/uL Hgb (13.0-17.5) gm/dL Hct (39.0-53.0) % MCHC (31.0-37.0) g/dL Plt Count (150-450) k/uL Lymphocytes # (1.0-4.8) k/uL PT (9.0-12.0) sec INR (<1.2) BUN 33 H (9-20) mg/dL Creatinine 1.49 H (0.66-1.25) mg/dL Glucose 136 H (74-99) mg/dL POC Glucose (mg/dL) (75-99) mg/dL Plasma Lactic Acid Lorne (0.7-2.0) mmol/L Calcium 8.3 L (8.4-10.2) mg/dL Total Protein 5.8 L (6.3-8.2) g/dL Albumin 3.1 L (3.5-5.0) g/dL Procalcitonin (0.02-0.09) ng/mL Urine Protein (Negative) Microbiology - Last 24 Hours (Table) 01/20/20 14:28 Blood Culture Gram Stain - Preliminary Blood Blood Culture - Preliminary Escherichia coli
[2020-01-22 13:22] LABS: Glucose,Whole Blood 136 mg/dL (75-99)
--- NOTE | 2020-01-22 15:15 | P.CNPUL ---
History of Present Illness Consult date: 01/22/20 Reason for consult: dyspnea, pleural effusion History of present illness: 84-year-old male patient came into the hospital yesterday because of altered mentation and a fever. The patient is known to have chronic atrial fibrillation maintained on Coumadin on outpatient basis, in addition to that the patient has history of hypertension, hyperlipidemia, hypothyroidism, obstructive sleep apnea for which she does not utilize any CPAP therapy and he does have history of hypertensive heart disease/CHF. The patient was also noted to be increasingly short of breath. He was getting apparently more agitated and confused along with shortness of breath. He had limited cough. No significant sputum production. No aspiration. No nausea vomiting or abdominal pain. Also, the patient had developed a swelling in his left upper thigh area. Upon further evaluation this or not to be an area of hematoma. Noted the patient's PT/INR was supratherapeutic at time of admission. Further investigation with an ultrasound of the left lower extremity showed no evidence of any DVT and basket surgery consultation was also obtained. For all this reasons, the patient came into the hospital. His white cell count was nonelevated. However, his blood culture came back positive for gram-negative bacillus pending further cultures. UA was negative. Chest exit showed a right lower lobe consolidation and follow- up chest x-ray from today showing a development of a right-sided pleural effusion. Note that the patient has been on long-term medical condition with warfarin and his PT/INR was supratherapeutic. He is currently covered with IV Unasyn as a broad-spectrum antibiotic coverage regarding the gram-negative bacillus in his blood. Review of Systems Eyes: denies as per HPI, denies blurred vision, denies bulging eye, denies decreased vision, denies diplopia, denies discharge, denies dry eye, denies irritation, denies itching, denies pain, denies photophobia, denies loss of peripheral vision, denies loss of vision, denies tunnel vision/blind spots Ears: deny: decreased hearing, ear discharge, earache, tinnitus Ears, nose, mouth and throat: Denies headache, Denies sore throat Breasts: absent: as per HPI, gynecomastia Cardiovascular: Reports decreased exercise tolerance, Reports dyspnea on exertion Respiratory: Reports dyspnea Gastrointestinal: Reports as per HPI Genitourinary: Reports as per HPI Musculoskeletal: Reports as per HPI Musculoskeletal: absent: ankle pain, ankle stiffness, ankle swelling Integumentary: Reports as per HPI Neurological: Reports as per HPI Psychiatric: Reports as per HPI Endocrine: Reports as per HPI Hematologic/Lymphatic: Reports as per HPI Allergic/Immunologic: Reports as per HPI Past Medical History Past Medical History: Atrial Fibrillation, COPD, GERD/Reflux, Hyperlipidemia, Hypertension, Osteoarthritis (OA), Sleep Apnea/CPAP/BIPAP, Thyroid Disorder History of Any Multi-Drug Resistant Organisms: None Reported Past Surgical History: Adenoidectomy, Cholecystectomy, Hernia Repair, Joint Replacement, Orthopedic Surgery, Tonsillectomy Additional Past Surgical History / Comment(s): TOTAL L KNEE TODAY 04/17/14 Past Anesthesia/Blood Transfusion Reactions: No Reported Reaction Past Psychological History: Depression Smoking Status: Former smoker Past Alcohol Use History: None Reported Additional Past Alcohol Use History / Comment(s): QUIT 5 YEARS (2010), SMOKED 62YR, 1 PPD. Past Drug Use History: None Reported - Past Family History Brother(s) Family Medical History: Cancer Additional Family Medical History / Comment(s): BROTHER OF LUNG CANCER. HE WAS A SMOKER. Son(s) Family Medical History: Cancer Father Family Medical History: No Reported History Additional Family Medical History / Comment(s): FATHER OF 89 YRS. Medications and Allergies Home Medications Medication Instructions Recorded Confirmed Type Atorvastatin [Lipitor] 40 mg PO HS 04/12/14 01/20/20 History Levothyroxine Sodium [Synthroid] 25 mcg PO DAILY 04/12/14 01/20/20 History Warfarin [Coumadin] 5 mg PO HS 04/12/14 01/20/20 History Fluticasone Nasal [place] [Flonase 1 spray EA NOSTRIL DAILY 03/30/16 01/20/20 His tory Nasal [place]] Budesonide [Pulmicort Flexhaler] 1 puff INHALATION RT-BID 01/20/20 01/20/20 History Docusate [Colace] 100 mg PO BID 01/20/20 01/20/20 History Furosemide [Lasix] 40 mg PO BID 01/20/20 01/20/20 History Metoprolol Succinate (ER) [Toprol 25 mg PO DAILY 01/20/20 01/20/20 History Xl] Mirtazapine [Remeron] 15 mg PO HS 01/20/20 01/20/20 History Potassium Chloride ER [K-Dur 20] 20 meq PO DAILY 01/20/20 01/20/20 History Umeclidinium Brm/Vilanterol Tr 1 puff INHALATION RT-DAILY 01/20/20 01/20/20 History [Anoro Ellipta 62.5-25 Mcg INH] Allergies Allergy/AdvReac Type Severity Reaction Status Date / Time No Known Allergies Allergy Verified 01/20/20 16:42 Physical Exam Vitals: Vital Signs Temp Pulse Pulse Resp BP Pulse Ox 01/22/20 09:28 88 01/22/20 09:17 88 01/22/20 04:00 97.5 F L 81 18 119/56 95 01/22/20 03:57 83 01/22/20 03:46 80 01/22/20 00:00 82 18 98/53 96 01/21/20 23:55 74 18 01/21/20 23:42 77 18 01/21/20 20:38 72 01/21/20 20:23 74 95 01/21/20 20:00 97.5 F L 82 18 92/60 01/21/20 16:00 97.9 F 68 18 107/59 95 01/21/20 15:30 70 18 01/21/20 15:15 72 18 01/21/20 12:00 97.0 F L 70 20 83/47 94 L 01/21/20 11:28 70 01/21/20 11:18 68 Intake and Output 01/21/20 01/22/20 01/22/20 22:59 06:59 14:59 Intake Total 120 780 Output Total 200 Balance 120 580 Intake: Oral 120 780 Output: Urine 200 Other: Voiding Method Diaper Diaper # Voids 1 1 Weight 82.5 kg Gen. appearance, comfortable not in distress, not using excessive muscle breathing Head exam was generally normal. There was no scleral icterus or corneal arcus. Mucous membranes were moist. Neck was supple and without jugular venous distension, thyromegaly, or carotid bruits. Carotids were easily palpable bilaterally. There was no adenopathy. Lungs sounds are diminished specially in the right lung base along with some dullness to percussion Cardiac exam revealed the PMI to be normally situated and sized. The rhythm was regular and no extrasystoles were noted during several minutes of auscultation. The first and second heart sounds were normal and physiologic splitting of the second heart sound was noted. There were no murmurs, rubs, clicks, or gallops. Abdominal exam revealed normal bowel sounds. The abdomen was soft, non-tender, and without masses, organomegaly, or appreciable enlargement of the abdominal aorta. Examination of the extremities revealed easily palpable radial, femoral and pedal pulses. There was no cyanosis, clubbing or edema. The left upper thigh is slightly swollen compared to the right and there is some underlying hematoma formation. No direct tenderness. No open wounds or sores. Pulses are present. Examination of the skin revealed no evidence of significant rashes, suspicious appearing nevi or other concerning lesions. Neurologically the patient is awake. No confusion. He has global weakness in all 4 extremities. No focal neurological deficits. Results - Laboratory Findings CBC and BMP: 01/22/20 07:46 01/22/20 07:46 ABG ABG pH 7.37 (7.35-7.45) 01/21/20 10:01 ABG pCO2 41 mmHg (35-45) 01/21/20 10:01 ABG pO2 106 mmHg (83-108) 01/21/20 10:01 ABG O2 Saturation 97.9 % (94-97) H 01/21/20 10:01 PT/INR, D-dimer PT 69.6 sec (9.0-12.0) H 01/22/20 07:46 INR 6.8 (<1.2) H* 01/22/20 07:46 D-Dimer 5.98 mg/L FEU (<0.60) H 01/20/20 15:40 Abnormal lab findings: Abnormal Labs 01/20/20 01/20/20 01/20/20 15:40 15:40 15:40 RBC 3.88 L Hgb 11.8 L Hct 36.9 L MCHC Plt Count 108 L Lymphocytes # 0.1 L PT 45.5 H INR 4.6 H APTT 32.2 H D-Dimer 5.98 H ABG Total CO2 ABG O2 Saturation Sodium 134 L Carbon Dioxide 21 L BUN 27 H Creatinine 1.69 H Glucose 114 H POC Glucose (mg/dL) Plasma Lactic Acid Lorne Calcium Troponin I C-Reactive Protein Total Protein 5.9 L Albumin 3.3 L Urine Protein 01/20/20 01/20/20 01/20/20 15:40 15:40 18:55 RBC Hgb Hct MCHC Plt Count Lymphocytes # PT INR APTT D-Dimer ABG Total CO2 ABG O2 Saturation Sodium Carbon Dioxide BUN Creatinine Glucose POC Glucose (mg/dL) Plasma Lactic Acid Lorne 2.1 H* 2.2 H* Calcium Troponin I 0.059 H* C-Reactive Protein Total Protein Albumin Urine Protein 01/20/20 01/20/20 01/21/20 21:17 21:25 00:26 RBC Hgb Hct MCHC Plt Count Lymphocytes # PT INR APTT D-Dimer ABG Total CO2 ABG O2 Saturation Sodium Carbon Dioxide BUN Creatinine Glucose POC Glucose (mg/dL) 132 H Plasma Lactic Acid Lorne 2.8 H* 3.3 H* Calcium Troponin I C-Reactive Protein Total Protein Albumin Urine Protein 01/21/20 01/21/20 01/21/20 04:11 07:38 07:38 RBC Hgb Hct MCHC Plt Count Lymphocytes # PT 68.8 H INR 6.7 H* APTT D-Dimer ABG Total CO2 ABG O2 Saturation Sodium Carbon Dioxide BUN Creatinine Glucose POC Glucose (mg/dL) Plasma Lactic Acid Lorne 2.3 H* 3.0 H* Calcium Troponin I C-Reactive Protein Total Protein Albumin Urine Protein 01/21/20 01/21/20 01/21/20 08:19 08:19 08:19 RBC 4.09 L Hgb 12.5 L Hct MCHC Plt Count 74 L Lymphocytes # 0.2 L PT INR APTT D-Dimer ABG Total CO2 ABG O2 Saturation Sodium Carbon Dioxide 19 L BUN 26 H Creatinine 1.56 H Glucose 108 H POC Glucose (mg/dL) Plasma Lactic Acid Lorne Calcium Troponin I 0.100 H* C-Reactive Protein 72.2 H Total Protein Albumin Urine Protein 01/21/20 01/21/20 01/21/20 10:01 11:24 11:24 RBC Hgb Hct MCHC Plt Count Lymphocytes # PT INR APTT D-Dimer ABG Total CO2 25 H ABG O2 Saturation 97.9 H Sodium Carbon Dioxide BUN Creatinine Glucose POC Glucose (mg/dL) Plasma Lactic Acid Lorne 2.5 H* Calcium Troponin I 0.108 H* C-Reactive Protein Total Protein Albumin Urine Protein 01/21/20 01/21/20 01/21/20 11:29 14:35 16:28 RBC Hgb Hct MCHC Plt Count Lymphocytes # PT INR APTT D-Dimer ABG Total CO2 ABG O2 Saturation Sodium Carbon Dioxide BUN Creatinine Glucose POC Glucose (mg/dL) 111 H 149 H Plasma Lactic Acid Lorne 2.1 H* Calcium Troponin I C-Reactive Protein Total Protein Albumin Urine Protein 01/21/20 01/21/20 01/22/20 18:11 20:09 06:00 RBC Hgb Hct MCHC Plt Count Lymphocytes # PT INR APTT D-Dimer ABG Total CO2 ABG O2 Saturation Sodium Carbon Dioxide BUN Creatinine Glucose POC Glucose (mg/dL) 158 H Plasma Lactic Acid Lorne 2.5 H* Calcium Troponin I C-Reactive Protein Total Protein Albumin Urine Protein Trace H 01/22/20 01/22/20 01/22/20 06:26 07:46 07:46 RBC 3.79 L Hgb 11.4 L Hct 37.1 L MCHC 30.7 L Plt Count 78 L Lymphocytes # 0.1 L PT 69.6 H INR 6.8 H* APTT D-Dimer ABG Total CO2 ABG O2 Saturation Sodium Carbon Dioxide BUN Creatinine Glucose POC Glucose (mg/dL) 184 H Plasma Lactic Acid Lorne Calcium Troponin I C-Reactive Protein Total Protein Albumin Urine Protein 01/22/20 07:46 RBC Hgb Hct MCHC Plt Count Lymphocytes # PT INR APTT D-Dimer ABG Total CO2 ABG O2 Saturation Sodium Carbon Dioxide BUN 33 H Creatinine 1.49 H Glucose 136 H POC Glucose (mg/dL) Plasma Lactic Acid Lorne Calcium 8.3 L Troponin I C-Reactive Protein Total Protein 5.8 L Albumin 3.1 L Urine Protein - Diagnostic Findings Chest x-ray: image reviewed Assessment and Plan Plan: 1 gram-negative sepsis under investigation. Currently on IV Unasyn. Awaiting final cultures and sensitivities. UA is negative. Suspect gram-negative pneumonia with secondary septicemia 2 right lower lobe consolidation/effusion, consider pneumonia 3 acute hypoxic respiratory failure secondary to above 4 chronic diastolic heart failure 5 chronic atrial fibrillation with a supratherapeutic PT/INR and Coumadin is on hold 6 left thigh subcutaneous hematoma, traumatic versus spontaneous, the patient had a supratherapeutic INR at time of admission 7 hypertension 8 hyperlipidemia 9 osteoarthritis 10 obstructive sleep apnea nontolerant to CPAP therapy 11 hypothyroidism 12 prostate cancer with previous history of radiation therapy to the prostate. 13 chronic kidney disease Plan Continue current antibiotic coverage with IV Unasyn Coumadin on hold Give 10 mg of vitamin K Repeat PT/INR in the morning We'll proceed with thoracentesis of the right lung once the INR is less than 2 Monitor the left thigh hematoma Stop Solu-Medrol We'll continue to follow.
[2020-01-22 16:45] LABS: Glucose,Whole Blood 103 mg/dL (75-99)
--- NOTE | 2020-01-22 19:41 | PN ---
PROGRESS NOTE This is an 84-year-old gentleman who has been admitted with history of right lobe pneumonia with infiltrate. The patient also has a history of atrial fibrillation, on Coumadin. We were consulted for a hematoma in the left groin. On examination, patient has some ecchymosis. Thigh has no evidence of arterial hematoma. Ultrasound showed no DVT and the patient's INR is 6.8 today. Discussed with Internal Medicine. The patient will be given vitamin K. At this point, no surgical intervention is needed. Will follow with you. MMODL / IJN: [id number] /
[2020-01-22 20:25] LABS: Glucose,Whole Blood 184 mg/dL (75-99)
[2020-01-22] MEDS: ATORVASTATIN 40 MG TAB PO SCH (21:44)
[2020-01-22] MEDS: PANTOPRAZOLE 40 MG TABLET PO SCH (21:44)
[2020-01-22] MEDS: MIRTAZAPINE 15 MG TAB PO SCH (21:44)
--- NOTE | 2020-01-22 22:23 | PN ---
PROGRESS NOTE DATE OF SERVICE: 01/22/2020 REASON FOR FOLLOWUP: E coli bacteremia. INTERVAL HISTORY: The patient is currently afebrile. The patient is more awake and alert today. He is breathing comfortably. The patient denies having any chest pain. Occasional cough. No abdominal pain or diarrhea. PHYSICAL EXAMINATION: Blood pressure 119/59, pulse of 70, temperature 98. He is 93% on 6 L nasal cannula. General description is an elderly male lying in bed in no distress. RESPIRATORY SYSTEM: Unlabored breathing. Decreased breath sounds at the base. No wheeze. HEART: S1, S2. Regular rate and rhythm. ABDOMEN: Soft. No tenderness. LABS: Hemoglobin 11.4, white count 5.6. UA is negative. BUN of 33, creatinine 1.49. DIAGNOSTIC IMPRESSION AND PLAN: Patient with an Escherichia coli bacteremia with concern for abdominal source versus aspiration pneumonia. He is currently covered with Unasyn; to continue. We will obtain a CT of abdomen and pelvis with oral contrast only to rule out any intraabdominal pathology, as the UA was negative. Monitor his clinical course closely. MMODL / IJN: [id number] /
[2020-01-23] MEDS: AMPICILLIN-SULBACTAM 3 GM in SODIUM CHLORIDE 0.9% 100 ML IVPB SCH ×3 (00:30→17:38)
[2020-01-23] MEDS: SODIUM CHLORIDE 0.9% 1,000 ML IV SCH ×2 (00:30→06:20)
[2020-01-23] MEDS: IPRATROPIUM-ALBUTEROL 3 ML NEB INHALATION SCH ×6 (01:12→19:31)
[2020-01-23 06:07] LABS: Glucose,Whole Blood 132 mg/dL (75-99)
[2020-01-23 06:17] LABS: HCT 36.9 % (39.0-53.0); HGB 11.2 gm/dL (13.0-17.5); Hypochromasia Moderate; MCH 30.3 pg (25.0-35.0); MCHC 30.5 g/dL (31.0-37.0); MCV 99.3 fL (80.0-100.0); Macrocytosis Slight; Mean Platelet Volume 8.5; RBC 3.72 m/uL (4.30-5.90); RDW 14.7 % (11.5-15.5); WBC 8.2 k/uL (3.8-10.6)
[2020-01-23 06:18] LABS: Platelet Count 81 k/uL (150-450)
[2020-01-23 06:20] LABS: INR 1.8 (<1.2); Prothrombin Time 17.9 sec (9.0-12.0)
[2020-01-23] MEDS: LEVOTHYROXINE 25 MCG TAB PO SCH (06:20)
[2020-01-23] MEDS: INSULIN ASPART (NovoLOG) 100 UNIT/ML VIAL SQ SCH ×3 (06:20→20:29)
[2020-01-23 06:23] LABS: Albumin 3.2 g/dL (3.5-5.0); Calcium 8.4 mg/dL (8.4-10.2); Potassium 3.8 mmol/L (3.5-5.1); Total Bilirubin 0.8 mg/dL (0.2-1.3); Total Protein 5.8 g/dL (6.3-8.2)
[2020-01-23] MEDS: DOCUSATE 100 MG CAP PO SCH ×2 (08:19→20:15)
[2020-01-23] MEDS: METOPROLOL SUCCINATE (ER) 25 MG TAB.ER.24H PO SCH (08:19)
[2020-01-23] MEDS: POTASSIUM CHLORIDE ER 20 MEQ TAB.ER PO SCH (08:20)
[2020-01-23] MEDS: NYSTATIN 100,000 UNIT/GM POWD 15 GM TOPICAL SCH ×3 (08:20→20:20)
[2020-01-23] MEDS: FUROSEMIDE 10 MG/ML 4 ML VIAL IV SCH ×2 (08:20→20:15)
[2020-01-23] MEDS: MULTIVITAMINS, THERA 1 EACH TAB PO SCH (08:20)
[2020-01-23] MEDS: IOPAMIDOL CONTRAST (ORAL USE) VIAL PO PRN ×2 (08:21→09:04)
[2020-01-23] MEDS: FLUTICASONE 50MCG/SPRAY NASAL 16GM NASAL SCH (08:21)
[2020-01-23] MEDS: FLUTICASONE 110 MCG INHALER INHALATION SCH ×2 (08:33→19:31)
--- NOTE | 2020-01-23 08:39 | P.PN ---
Subjective Progress Note Date: 01/23/20 Principal diagnosis: Heart failure with preserved LV function This is an 84-year-old gentleman with history of long-standing persistent atrial fibrillation, hypertension, dyslipidemia, and hypertrophic cardiomyopathy was admitted to the hospital with acute hypoxic respiratory failure secondary to heart failure as well as pneumonia. The patient was seen in this morning, January 222019. He continues to have shortness of breath. He does have bilateral expiratory wheezing on examination as well. He underwent an echocardiogram yesterday and that revealed normal left ventricular systolic function was evidence of mild aortic stenosis, mild mitral stenosis, and moderate pulmonary hypertension. He is on Lasix IV which I would continue at this point. The creatinine this morning continues to be stable. We'll continue monitor the kidney function and electrolytes. Objective - Vital Signs Vital signs: Vital Signs Temp 97.5 F L 01/23/20 04:00 Pulse 77 01/23/20 04:00 Resp 18 01/23/20 04:00 BP 125/69 01/23/20 04:00 Pulse Ox 100 01/23/20 04:00 Intake & Output 01/22/20 01/23/20 01/23/20 18:59 06:59 18:59 Intake Total 780 100 Output Total 400 1100 Balance 380 -1000 Weight 84 kg Intake: Oral 780 100 Output: Urine 400 1100 Other: Voiding Method Diaper Urinal Diaper Incontinent # Voids 3 - Constitutional General appearance: Present: no acute distress - Respiratory Respiratory: bilateral: wheezing - Cardiovascular Rhythm: regular Heart sounds: normal: S1, S2 Abnormal Heart Sounds: Present: systolic murmur - Labs CBC & Chem 7: 01/23/20 05:40 01/23/20 05:40 Labs: Abnormal Lab Results - Last 24 Hours (Table) 01/21/20 01/22/20 01/22/20 Range/Units 11:24 07:46 07:46 RBC (4.30-5.90) m/uL Hgb (13.0-17.5) gm/dL Hct (39.0-53.0) % MCHC (31.0-37.0) g/dL Plt Count (150-450) k/uL PT 69.6 H (9.0-12.0) sec INR 6.8 H* (<1.2) Chloride (98-107) mmol/L BUN 33 H (9-20) mg/dL Creatinine 1.49 H (0.66-1.25) mg/dL Glucose 136 H (74-99) mg/dL POC Glucose (mg/dL) (75-99) mg/dL Calcium 8.3 L (8.4-10.2) mg/dL Total Protein 5.8 L (6.3-8.2) g/dL Albumin 3.1 L (3.5-5.0) g/dL Procalcitonin 3.65 H (0.02-0.09) ng/mL 01/22/20 01/22/20 01/22/20 Range/Units 13:20 16:43 20:23 RBC (4.30-5.90) m/uL Hgb (13.0-17.5) gm/dL Hct (39.0-53.0) % MCHC (31.0-37.0) g/dL Plt Count (150-450) k/uL PT (9.0-12.0) sec INR (<1.2) Chloride (98-107) mmol/L BUN (9-20) mg/dL Creatinine (0.66-1.25) mg/dL Glucose (74-99) mg/dL POC Glucose (mg/dL) 136 H 103 H 184 H (75-99) mg/dL Calcium (8.4-10.2) mg/dL Total Protein (6.3-8.2) g/dL Albumin (3.5-5.0) g/dL Procalcitonin (0.02-0.09) ng/mL 01/23/20 01/23/20 01/23/20 Range/Units 05:40 05:40 05:40 RBC 3.72 L (4.30-5.90) m/uL Hgb 11.2 L (13.0-17.5) gm/dL Hct 36.9 L (39.0-53.0) % MCHC 30.5 L (31.0-37.0) g/dL Plt Count 81 L (150-450) k/uL PT 17.9 H (9.0-12.0) sec INR 1.8 H (<1.2) Chloride 109 H (98-107) mmol/L BUN 34 H (9-20) mg/dL Creatinine 1.48 H (0.66-1.25) mg/dL Glucose 129 H (74-99) mg/dL POC Glucose (mg/dL) (75-99) mg/dL Calcium (8.4-10.2) mg/dL Total Protein 5.8 L (6.3-8.2) g/dL Albumin 3.2 L (3.5-5.0) g/dL Procalcitonin (0.02-0.09) ng/mL 01/23/20 Range/Units 06:06 RBC (4.30-5.90) m/uL Hgb (13.0-17.5) gm/dL Hct (39.0-53.0) % MCHC (31.0-37.0) g/dL Plt Count (150-450) k/uL PT (9.0-12.0) sec INR (<1.2) Chloride (98-107) mmol/L BUN (9-20) mg/dL Creatinine (0.66-1.25) mg/dL Glucose (74-99) mg/dL POC Glucose (mg/dL) 132 H (75-99) mg/dL Calcium (8.4-10.2) mg/dL Total Protein (6.3-8.2) g/dL Albumin (3.5-5.0) g/dL Procalcitonin (0.02-0.09) ng/mL Microbiology - Last 24 Hours (Table) 01/20/20 14:28 Blood Culture Gram Stain - Final Blood Blood Culture - Final Escherichia coli Assessment and Plan Assessment: Assessment #1 acute exacerbation of chronic obstructive pulmonary disease #2 acute on chronic congestive heart failure secondary to diastolic dysfunction #3 long-standing persistent atrial fibrillation #4 valvular heart disease was mild aortic stenosis and mild mitral stenosis. Plan #1 continue the current medical regimen #2 I will continue IV Lasix for additional 24 hours #3 follow-up with the patient
--- NOTE | 2020-01-23 11:13 | P.PN ---
Subjective This is an 84-year-old male with history of COPD, atrial fibrillation, acid reflux, hyperlipidemia, hypertension, osteoarthritis, sleep apnea utilizing a CPAP machine, hypothyroidism. Patient lives with his and is often noncompliant. Patient often forgets to take his medications and for currently misses appointments with primary care. Patient has a son who lives close to home does have home care at this time within his home. Patient sees Dr. sHu is a primary care physician she has discussed on multiple occasions utilizing assisted living facility to assist due to noncompliance. Patient has refused in the past. Patient came to the emergency room due to shortness of breath that has been going on for about a week. Patient states that the shortness of breath was worse today. He is out of his medications at home and was scheduled to see Dr. Hsu on Wednesday. Patient denies any fever or chills. Patient experienced episode of unconsciousness and not breathing pulse ox 80%. Patient was placed on BiPAP where he had improvement. Patient complaining of left groin pain. The site with firm with erythema and discoloration positive edema. Anterior most prominently medial measuring approximate 10 x 8 cm. Venous Doppler showed no DVT, ultrasound of the groin showed a subcutaneous hematoma. Patient is unsure if he had hurt himself. At this time patient is resting in bed confused. He has pulled his IV out multiple times. He is placed on high flow oxygen at 6 L. Patient states that his breathing is a little better compared to yesterday. Left groin still firm to touch with erythema and discoloration anterior and medial. Extremities cool to touch. Faint palpable bilateral pedal pulses noted. 01/21: Patient has been seen by Dr. Hill with recommendations for on Unasyn for E. coli bacteremia and right lower lobe pneumonia. Urinalysis was clear with nitrate and leukoesterase negative. Patient has been afebrile, heart rate 88, blood pressure 136/69, pulse ox 94% on high flow 6 L nasal cannula. Repeat blood work reveals WBC 5.6, hemoglobin 11.4, platelet count 78, INR 6.8. BUN 33 and creatinine 1.49. Cardiology is following with recommendations to continue current medication. Echocardiogram reveals EF of 50-55% with moderate concentric left ventricular hypertrophy, mild aortic stenosis, mild mitral stenosis, moderate tricuspid regurgitation, moderate pulmonary hypertension. VQ scan is intermediate probability for pulmonary embolism. Consult was admitted for pulmonary medicine. COVID-19 remains pending. 01/22: Patient seen this morning resting in bed, more alert and answering questions this morning. Vital signs are stable, patient remains afebrile, pulse 80, respirations 18, blood pressure 127/64, pulse ox 97% on 2 L nasal cannula. Labs were reviewed, INR was 1.8 today we'll likely resume Coumadin after possible thoracentesis of right lung. BUN 34 creatinine 1.48. Covid testing w as negative. Patient remains on ampicillin IV for E. coli bacteremia. Awaiting CT of the abdomen ordered by Dr. Condon at this point. Consults for pulmonary, cardiology, ID remain in place. Cardiology continues IV Lasix and will continue to monitor kidney function closely. Review Of Systems: Constitutional: No fever, no chills, no night sweats. No weight change. Repo rts weakness and fatigue. No daytime sleepiness. EENT: No headache. No blurred vision or double vision, no loss of vision. No loss of Hearing, no ringing in the ears, no dizziness. Reports nasal drainage and congestion. No epistaxis. No sore throat. Lungs: Reports shortness of breath with wheezing and cough, sputum production, wheezing. Cardiovascular: No chest pain, no lower extremity edema. No palpitations. No paroxysmal nocturnal dyspnea. No orthopnea. No lightheadedness or dizziness. Abdominal: no abdominal discomfort. No nausea, vomiting. no diarrhea. No constipation. No bloody or tarry stools. no loss of appetite. Genitourinary: No dysuria, increased frequency, urgency. No urinary retention. Musculoskeletal: Reports left groin pain No myalgias. No muscle weakness, no gait dysfunction, no frequent falls. No back pain. No neck pain. Integumentary: No wounds, no lesions. No rash or pruritus. No unusual bruising. No change in hair or nails. Neurologic: No aphasia. No facial droop. Reports change in mentation. No head injury. No headache. No paralysis. No paresthesia. Psychiatric: No depression. No anxiety. No mood swings. Endocrine: No abnormal blood sugars. No weight change. No excessive sweating or thirst. Physical examination General Appearance: 84-year-old confused cooperative, mild distress, older than stated age. Neck HEENT: Supple, no lymphadenopathy, no thyroid enlargement, no carotid bruits. Lungs: Crackles bilateral with scattered expiratory wheeze, mild accessory muscle usage. Chest Wall: Chest wall normal expansion with deep inspiration no tenderness and no deformity was found on exam, no costochondral pain or discomfort. Heart: Irregular rate and rhythm, S1, S2 normal, no murmur, rub or gallop. Back: Symmetric, no curvature, ROM normal, no CVA tenderness. Abdomen: Soft, non-tender, no rebound or rigidity, no hepatosplenomegaly. Extremities: Faint bilateral pedal pulses, left groin edematous, firm, erythema and discoloration noted to anterior medial aspect with a mass measuring 10 x 8 cm, lower extremities Pulses: 1+ faint and symmetric. Neurologic: Patient is awake, more alert, generalized weakness noted. Objective - Vital Signs Vital signs: Vital Signs Temp 97.9 F 01/23/20 08:00 Pulse 80 01/23/20 08:47 Resp 18 01/23/20 08:00 BP 127/64 01/23/20 08:00 Pulse Ox 97 01/23/20 08:00 Intake & Output 01/22/20 01/23/20 01/23/20 18:59 06:59 18:59 Intake Total 780 100 30 Output Total 400 1100 950 Balance 380 -1000 -920 Weight 84 kg Intake: Oral 780 100 30 Output: Urine 400 1100 950 Other: Voiding Method Diaper Urinal Urinal Diaper Diaper Incontinent Incontinent # Voids 3 3 - Labs CBC & Chem 7: 01/23/20 05:40 01/23/20 05:40 Labs: Abnormal Lab Results - Last 24 Hours (Table) 01/21/20 01/22/20 01/22/20 Range/Units 11:24 13:20 16:43 RBC (4.30-5.90) m/uL Hgb (13.0-17.5) gm/dL Hct (39.0-53.0) % MCHC (31.0-37.0) g/dL Plt Count (150-450) k/uL PT (9.0-12.0) sec INR (<1.2) Chloride (98-107) mmol/L BUN (9-20) mg/dL Creatinine (0.66-1.25) mg/dL Glucose (74-99) mg/dL POC Glucose (mg/dL) 136 H 103 H (75-99) mg/dL Total Protein (6.3-8.2) g/dL Albumin (3.5-5.0) g/dL Procalcitonin 3.65 H (0.02-0.09) ng/mL 01/22/20 01/23/20 01/23/20 Range/Units 20:23 05:40 05:40 RBC 3.72 L (4.30-5.90) m/uL Hgb 11.2 L (13.0-17.5) gm/dL Hct 36.9 L (39.0-53.0) % MCHC 30.5 L (31.0-37.0) g/dL Plt Count 81 L (150-450) k/uL PT 17.9 H (9.0-12.0) sec INR 1.8 H (<1.2) Chloride (98-107) mmol/L BUN (9-20) mg/dL Creatinine (0.66-1.25) mg/dL Glucose (74-99) mg/dL POC Glucose (mg/dL) 184 H (75-99) mg/dL Total Protein (6.3-8.2) g/dL Albumin (3.5-5.0) g/dL Procalcitonin (0.02-0.09) ng/mL 01/23/20 01/23/20 Range/Units 05:40 06:06 RBC (4.30-5.90) m/uL Hgb (13.0-17.5) gm/dL Hct (39.0-53.0) % MCHC (31.0-37.0) g/dL Plt Count (150-450) k/uL PT (9.0-12.0) sec INR (<1.2) Chloride 109 H (98-107) mmol/L BUN 34 H (9-20) mg/dL Creatinine 1.48 H (0.66-1.25) mg/dL Glucose 129 H (74-99) mg/dL POC Glucose (mg/dL) 132 H (75-99) mg/dL Total Protein 5.8 L (6.3-8.2) g/dL Albumin 3.2 L (3.5-5.0) g/dL Procalcitonin (0.02-0.09) ng/mL Microbiology - Last 24 Hours (Table) 01/22/20 07:46 Blood Culture - Preliminary Blood No Growth after 24 hours 01/20/20 14:28 Blood Culture Gram Stain - Final Blood Blood Culture - Final Escherichia coli Assessment and Plan Assessment: Assessment and plan 1. Acute hypoxic respiratory failure secondary to acute on chronic diastolic heart failure, COPD exacerbation and possible pneumonia. Chest x-ray shows lower right lobe infiltrate. Continue oxygen, consult with pulmonary medicine added. Continue DuoNeb treatments every 4 hours, Flovent 1 puff twice daily, and IV Lasix. 2. Sepsis and E. coli bacteremia. Continue Unasyn per Dr. Hill. Awaiting recommendations patient will likely need IV antibiotics at discharge. 3. COPD exacerbation. Solu-Medrol was discontinued, pulmonary following 4. Subcutaneous hematoma related to groin pain. Consult I&D, consult vascular surgery, nystatin apply 3 times a day 5. Hypertrophic cardiomyopathy. Continue Lasix 6. Acute on chronic Diastolic congestive heart failure. Consult cardiology Continue Lasix, potassium chloride 20 mg by mouth daily 7. Septic encephalopathy. Continue above treatment. 8. Coagulopathy. Hold Coumadin. Repeat INR. Hold azithromycin 9. Acute kidney injury with chronic kidney disease stage III. Continue IV fluids, monitor renal function daily. 10. Persistent Atrial fibrillation. Hold Coumadin. Continue Toprol-XL 25 mg daily. 11. Hypertension. Metoprolol 25 mg by mouth at bedtime 12. Hyperlipidemia. Continue atorvastatin 40 mg by mouth at bedtime 13. Obstructive sleep apnea. Continue to use CPAP machine 14. Hypothyroidism. Continue levothyroxine 25mcg daily 15. Elevated troponin secondary to sepsis. Cardiology consult appreciated. 16. Debility. Consult social work for possible subacute rehab, consult PTOT 17. DVT prophylaxis. Pneumatic compression sleeves 18. GI prophylaxis. Protonix 40 mg by mouth at bedtime 19. Thrombocytopenia secondary to sepsis. 20. COVID-19 testing was negative CODE STATUS: No code Discharge plan: subacute rehab. Impression and plan of care have been directed as dictated by the signing physician. Breanna Jackson nurse practitioner acting as scribe for signing physician.
[2020-01-23 11:40] LABS: Glucose,Whole Blood 136 mg/dL (75-99)
--- NOTE | 2020-01-23 12:51 | CT ---
EXAMINATION TYPE: CT abdomen pelvis wo con DATE OF EXAM: 01/23/2020 COMPARISON: None INDICATION: Abdominal pain, E. Coli bacteremia DLP: 1091 mGycm, Automated exposure control for dose reduction was used. CONTRAST: 0 mL of Isovue 300. Study performed with Oral Contrast TECHNIQUE: Axial images were obtained from above the diaphragm to the pubic rami in the axial plane a t 5 mm thick sections. Reconstructed images are reviewed on the computer in the coronal plane. FINDINGS: Limited CT sections are obtained the lung bases. Small bilateral pleural effusions are present. Ther e is compressive atelectasis in the dependent portions of the lung bases adjacent to the pleural effu sions. Coronary artery calcifications present. Heart size is somewhat prominent.. CT ABDOMEN: Liver: There are scattered calcified granuloma within the liver. Spleen: Couple of scattered calcified granuloma are within the spleen. Pancreas: Atrophic. Adrenal glands: The adrenal glands are normal. Gallbladder: Not identified. Correlate with the surgical history Kidneys: No masses are evident. No hydronephrosis is present. No cysts are present. No renal stone s are evident. Studies without intravenous contrast. Aorta: Vascular calcification is within the aorta. Inferior vena cava: Normal. CT PELVIS: There is diffuse soft tissue edema present throughout the [id number] Loops of bowel within the abdomen and pelvis are normal. Study is without oral contrast limiting bowel evaluation. Fecal debris is throughout the colon. Appendix: Normal as visualized. Urinary bladder: Normal. Genitourinary structures: Prostate is unremarkable. Osseous structures: No suspicious lytic or sclerotic lesions. Scoliosis and degenerative disc changes are through the lumbar spine. IMPRESSIONS: 1. Diffuse soft tissue edema throughout the [id number]. 2. Small bilateral pleural effusions with adjacent compressive atelectasis at the lung bases. 3. Cardiomegaly. 4. Scattered calcified granuloma within the liver and spleen.
--- NOTE | 2020-01-23 13:57 | CDI ---
Documentation Clarification Form Date: 01/23/2020 01:00:30 PM From: Mirella López RN CCDS Admit Date: 01/20/2020 04:27:00 PM Patient Name: Dorian Gordon Visit Number: [id number] Discharge Date: ATTENTION: The Clinical Documentation Specialists (CDI) and [facility] Coding Staff appreciate your assistance in clarifying documentation. Please respond to the clarification below the line at the bottom and electronically sign. The CDI & [facility] [employer] Coding staff will review the response and follow-up if needed. Please note: Queries are made part of the Legal Health Record. If you have any questions, please contact the author of this message via ITS. Dr. Billy Maddox Cardiology Consult 01/20 Elevated troponins most likely secondary to sepsis, possible Non-St elevated myocardial infarction. Medical Progress note 01/21 - Elevated troponin secondary to sepsis. Cardiology consult appreciated. Patient History/Risk Factors: 84-year-old male presents to the ED for shortness of breath for two weeks. Admitted with Sepsis, Pneumonia, Exacerbation of Diastolic CHF and Acute Hypoxic Respiratory Failure. Medical History: Atrial Fibrillation; COPD and Former smoker; Clinical Indicators: 01/19 Troponin: 0.059 01/20 EKG Results Documented in the Cardiology consult: Atrial Fibrillation 01/19 CXR: There is evidence of new congestive heart failure with right lower lobe infiltrate. 01/19 Blood cultures: Escherichia coli 01/19 Labs: Wbc 4.6; Lactic acid 2.1; 2.2; 2.8; 01/20 3.3 Treatment: 01/19 0.9NS 75cc/hr; Azithromycin Ivpb x1; Rocephin Ivpb x1; 01/20 Vancomycin Ivpb x 1; 01/21 Ampicillin Ivpb Q 8Hr; For accurate documentation please indicate the underlying etiology of the NSTEMI: NSTEMI Type 2 secondary to Sepsis NSTEMI please specify type and cause if known Unable to determine Other Condition, please specify (Last Revision: June 2019) MTDD
--- NOTE | 2020-01-23 14:07 | P.PN ---
Subjective Progress Note Date: 01/23/20 84-year-old male patient came into the hospital yesterday because of altered mentation and a fever. The patient is known to have chronic atrial fibrillation maintained on Coumadin on outpatient basis, in addition to that the patient has history of hypertension, hyperlipidemia, hypothyroidism, obstructive sleep apnea for which she does not utilize any CPAP therapy and he does have history of hypertensive heart disease/CHF. The patient was also noted to be increasingly short of breath. He was getting apparently more agitated and confused along with shortness of breath. He had limited cough. No significant sputum production. No aspiration. No nausea vomiting or abdominal pain. Also, the patient had developed a swelling in his left upper thigh area. Upon further evaluation this or not to be an area of hematoma. Noted the patient's PT/INR was supratherapeutic at time of admission. Further investigation with an ultrasound of the left lower extremity showed no evidence of any DVT and basket surgery consultation was also obtained. For all this reasons, the patient came into the hospital. His white cell count was nonelevated. However, his blood culture came back positive for gram-negative bacillus pending further cultures. UA was negative. Chest exit showed a right lower lobe consolidation and follow- up chest x-ray from today showing a development of a right-sided pleural eff usion. Note that the patient has been on long-term medical condition with warfarin and his PT/INR was supratherapeutic. He is currently covered with IV Unasyn as a broad-spectrum antibiotic coverage regarding the gram-negative bacillus in his blood. 01/23/2020, the patient doing well. The patient is being treated for a gram- negative sepsis. The cultures and the blood came back positive for E. coli and the patient remains on IV Unasyn. Meanwhile, CAT scan of the abdomen and pelvis was done and it showed bilateral pleural effusions right more than left and the same time there was diffuse soft tissue edema throughout the abdomen and pelvis and no acute intra-abdominal findings accounting for this gram-negative sepsis. Still considering gram-negative pneumonia/aspiration pneumonia. The patient was given vitamin K yesterday. INR is down to 1.8. Creatinine stable at 1.48. We'll likely benefit from a right-sided thoracentesis. Objective - Vital Signs Vital signs: Vital Signs Temp 97.9 F 08/04/20 08:00 Pulse 88 01/23/20 12:03 Resp 18 01/23/20 12:00 BP 128/61 01/23/20 12:00 Pulse Ox 97 01/23/20 12:00 Intake & Output 01/22/20 01/23/20 01/23/20 18:59 06:59 18:59 Intake Total 780 100 570 Output Total 400 1100 1650 Balance 380 -1000 -1080 Weight 84 kg Intake: Oral 780 100 570 Output: Urine 400 1100 1650 Other: Voiding Method Diaper Urinal Urinal Diaper Diaper Incontinent Incontinent # Voids 3 3 - Exam Gen. appearance, comfortable not in distress, not using excessive muscle breathing Head exam was generally normal. There was no scleral icterus or corneal arcus. Mucous membranes were moist. Neck was supple and without jugular venous distension, thyromegaly, or carotid bruits. Carotids were easily palpable bilaterally. There was no adenopathy. Lungs sounds are diminished specially in the right lung base along with some dullness to percussion Cardiac exam revealed the PMI to be normally situated and sized. The rhythm was regular and no extrasystoles were noted during several minutes of auscultation. The first and second heart sounds were normal and physiologic splitting of the second heart sound was noted. There were no murmurs, rubs, clicks, or gallops. Abdominal exam revealed normal bowel sounds. The abdomen was soft, non-tender, and without masses, organomegaly, or appreciable enlargement of the abdominal aorta. Examination of the extremities revealed easily palpable radial, femoral and pedal pulses. There was no cyanosis, clubbing or edema. The left upper thigh is slightly swollen compared to the right and there is some underlying hematoma formation. No direct tenderness. No open wounds or sores. Pulses are present. Examination of the skin revealed no evidence of significant rashes, suspicious appearing nevi or other concerning lesions. Neurologically the patient is awake. No confusion. He has global weakness in all 4 extremities. No focal neurological deficits. - Labs CBC & Chem 7: 01/23/20 05:40 01/23/20 05:40 Labs: Abnormal Lab Results - Last 24 Hours (Table) 01/22/20 01/22/20 01/23/20 Range/Units 16:43 20:23 05:40 RBC (4.30-5.90) m/uL Hgb (13.0-17.5) gm/dL Hct (39.0-53.0) % MCHC (31.0-37.0) g/dL Plt Count (150-450) k/uL PT 17.9 H (9.0-12.0) sec INR 1.8 H (<1.2) Chloride (98-107) mmol/L BUN (9-20) mg/dL Creatinine (0.66-1.25) mg/dL Glucose (74-99) mg/dL POC Glucose (mg/dL) 103 H 184 H (75-99) mg/dL Total Protein (6.3-8.2) g/dL Albumin (3.5-5.0) g/dL 01/23/20 01/23/20 01/23/20 Range/Units 05:40 05:40 06:06 RBC 3.72 L (4.30-5.90) m/uL Hgb 11.2 L (13.0-17.5) gm/dL Hct 36.9 L (39.0-53.0) % MCHC 30.5 L (31.0-37.0) g/dL Plt Count 81 L (150-450) k/uL PT (9.0-12.0) sec INR (<1.2) Chloride 109 H (98-107) mmol/L BUN 34 H (9-20) mg/dL Creatinine 1.48 H (0.66-1.25) mg/dL Glucose 129 H (74-99) mg/dL POC Glucose (mg/dL) 132 H (75-99) mg/dL Total Protein 5.8 L (6.3-8.2) g/dL Albumin 3.2 L (3.5-5.0) g/dL 01/23/20 Range/Units 11:38 RBC (4.30-5.90) m/uL Hgb (13.0-17.5) gm/dL Hct (39.0-53.0) % MCHC (31.0-37.0) g/dL Plt Count (150-450) k/uL PT (9.0-12.0) sec INR (<1.2) Chloride (98-107) mmol/L BUN (9-20) mg/dL Creatinine (0.66-1.25) mg/dL Glucose (74-99) mg/dL POC Glucose (mg/dL) 136 H (75-99) mg/dL Total Protein (6.3-8.2) g/dL Albumin (3.5-5.0) g/dL Microbiology - Last 24 Hours (Table) 01/22/20 07:46 Blood Culture - Preliminary Blood No Growth after 24 hours 01/20/20 14:28 Blood Culture Gram Stain - Final Blood Blood Culture - Final Escherichia coli Assessment and Plan Plan: 1 gram-negative sepsis secondary to E. coli. Currently on IV Unasyn. Consider gram-negative pneumonia/aspiration pneumonia. The patient also has a little better pleural effusions right more than left. 2 right lower lobe consolidation/effusion, consider gram-negative pneumonia 3 acute hypoxic respiratory failure secondary to above 4 chronic diastolic heart failure 5 chronic atrial fibrillation with a supratherapeutic PT/INR and Coumadin is on hold 6 left thigh subcutaneous hematoma, traumatic versus spontaneous, the patient had a supratherapeutic INR at time of admission 7 hypertension 8 hyperlipidemia 9 osteoarthritis 10 obstructive sleep apnea nontolerant to CPAP therapy 11 hypothyroidism 12 prostate cancer with previous history of radiation therapy to the prostate. 13 chronic kidney disease Plan Continue current antibiotic coverage with IV Unasyn Coumadin on hold The INR is down to 1.8 We'll proceed with thoracentesis of the right lung once the INR is less than 2 Monitor the left thigh hematoma CAT scan of the abdomen is nonrevealing No significant leukocytosis Hemoglobin is stable Covid 19 evaluation came back negative Stop Solu-Medrol We'll continue to follow.
--- NOTE | 2020-01-23 15:29 | P.PCN ---
Date of Procedure: 01/23/20 Preoperative Diagnosis: Right-sided pleural effusion Postoperative Diagnosis: Right-sided pleural effusion Procedure(s) Performed: Thoracentesis Anesthesia: local Surgeon: Enid Durant Estimated Blood Loss (ml): 0 Pathology: other Condition: stable Disposition: floor Description of Procedure: Indication: Pleural effusion. A time-out was completed verifying correct patient, procedure, site, positioning, and implant (s) or special equipment if applicable. Ultrasound guidance was not used and appropriate fluid pocket was identified and marked. Patient was positioned, prepped and draped in usual sterile fashion. Lidocaine was used to anesthetize the area. A Thoracentesis catheter was introduced into the pleural space and fluid was removed. Blood loss was none. A chest x-ray was ordered to evaluate for pneumothorax. Total Fluid Removed: 1000cc Color of Fluid: Clear yellow Fluid was sent for appropriate laboratory tests. Patient tolerated the procedure well and there were no complications.
--- NOTE | 2020-01-23 15:56 | XR ---
EXAMINATION TYPE: XR chest 1V portable DATE OF EXAM: 01/23/2020 CLINICAL HISTORY: Status post right thoracentesis TECHNIQUE: Portable frontal view of the chest obtained COMPARISON: Chest radiograph 01/21/2020 FINDINGS: Cardiomegaly. Mediastinal silhouette normal in size. There is no appreciable right pleural effusion. There is right lower lobe atelectasis and focal opacity. Small left pleural effusion. No p neumothorax. IMPRESSION: 1. No appreciable right-sided pleural effusion status post thoracentesis. No pneumothorax. 2. Right lower lobe atelectasis and focal air space opacity. 3. Small left pleural effusion.
--- NOTE | 2020-01-23 16:25 | PN ---
PROGRESS NOTE DATE OF SERVICE: 01/23/2020 REASON FOR FOLLOWUP: E coli bacteremia. INTERVAL HISTORY: Patient is currently afebrile, patient is breathing more comfortably. Patient denies having any chest pain or shortness of breath. Minimal cough. No nausea. No abdominal pain, no diarrhea. PHYSICAL EXAMINATION: Blood pressure 128/60, pulse is 76, temperature is 97.9, he is 97% on room air. General description is an elderly male, lying in bed in no distress. RESPIRATORY SYSTEM: Unlabored breathing, decreased breath sounds at the base, no wheeze. HEART: S1, S2. Regular rate and rhythm. ABDOMEN: Soft, no tenderness. LABS: Hemoglobin 11.1, white count of 8.2, BUN of 24, creatinine 1.48. Blood with E coli sensitive pathogen. Followup blood culture has been negative. The abdominal scan shows generalized anasarca and some atelectasis. DIAGNOSTIC IMPRESSION AND PLAN: Patient with E coli bacteremia, source of either urine or . Culture of urine was negative with concern for possible . The patient Unasyn to continue, followup blood culture negative. Finish therapy with oral antibiotic until stable. Continue supportive care. MMODL / IJN: [id number] /
[2020-01-23 16:42] LABS: Glucose,Whole Blood 127 mg/dL (75-99)
[2020-01-23] MEDS: MIRTAZAPINE 15 MG TAB PO SCH (20:15)
[2020-01-23] MEDS: HYDROcodone/APAP 5-325MG 1 EACH TAB PO PRN (20:15)
[2020-01-23] MEDS: ATORVASTATIN 40 MG TAB PO SCH (20:15)
[2020-01-23] MEDS: PANTOPRAZOLE 40 MG TABLET PO SCH (20:15)
[2020-01-23 20:27] LABS: Glucose,Whole Blood 115 mg/dL (75-99)
[2020-01-23 20:47] LABS: Appearance,BF Hazy; Color,BF Yellow; Nucleated Cells, Body Fluid 9 /uL; RBC, Body Fluid 380 /uL
[2020-01-24] MEDS: AMPICILLIN-SULBACTAM 3 GM in SODIUM CHLORIDE 0.9% 100 ML IVPB SCH ×4 (00:32→23:26)
[2020-01-24] MEDS: IPRATROPIUM-ALBUTEROL 3 ML NEB INHALATION SCH ×7 (01:13→23:50)
[2020-01-24 04:32] LABS: Glucose, BF Source Pleural Fluid; Glucose, Body Fluid 158 mg/dL; LDH, Body Fluid Source Pleural Fluid
[2020-01-24 06:11] LABS: Glucose,Whole Blood 98 mg/dL (75-99)
[2020-01-24] MEDS: LEVOTHYROXINE 25 MCG TAB PO SCH (06:35)
[2020-01-24] MEDS: INSULIN ASPART (NovoLOG) 100 UNIT/ML VIAL SQ SCH ×4 (06:36→21:08)
[2020-01-24 06:37] LABS: Basophils % (A) 0 %; Eosinophils % (A) 0 %; HCT 38.3 % (39.0-53.0); HGB 11.8 gm/dL (13.0-17.5); Hypochromasia Slight; Lymphocytes # (A) 0.3 k/uL (1.0-4.8); Lymphocytes % (A) 5 %; MCH 30.2 pg (25.0-35.0); MCHC 30.9 g/dL (31.0-37.0); MCV 97.9 fL (80.0-100.0); Mean Platelet Volume 8.6; Monocytes # (A) 0.3 k/uL (0-1.0); Monocytes % (A) 4 %; Neutrophils # (A) 6.2 k/uL (1.3-7.7); Neutrophils % (A) 90 %; RBC 3.92 m/uL (4.30-5.90); RDW 14.8 % (11.5-15.5)
[2020-01-24 06:41] LABS: Albumin 3.1 g/dL (3.5-5.0); Calcium 8.4 mg/dL (8.4-10.2); Potassium 3.6 mmol/L (3.5-5.1); Total Bilirubin 1.2 mg/dL (0.2-1.3); Total Protein 5.8 g/dL (6.3-8.2)
[2020-01-24 07:13] LABS: Anisocytosis (M) Present; Hypochromasia (M) Present; Platelet Count 94 k/uL (150-450)
[2020-01-24] MEDS: FLUTICASONE 110 MCG INHALER INHALATION SCH ×3 (08:23→19:04)
[2020-01-24] MEDS: MULTIVITAMINS, THERA 1 EACH TAB PO SCH (08:51)
[2020-01-24] MEDS: DOCUSATE 100 MG CAP PO SCH ×2 (08:51→20:08)
[2020-01-24] MEDS: POTASSIUM CHLORIDE ER 20 MEQ TAB.ER PO SCH (08:51)
[2020-01-24] MEDS: FUROSEMIDE 10 MG/ML 4 ML VIAL IV SCH ×2 (08:51→20:08)
[2020-01-24] MEDS: METOPROLOL SUCCINATE (ER) 25 MG TAB.ER.24H PO SCH (08:51)
[2020-01-24] MEDS: FLUTICASONE 50MCG/SPRAY NASAL 16GM NASAL SCH (08:52)
[2020-01-24] MEDS: NYSTATIN 100,000 UNIT/GM POWD 15 GM TOPICAL SCH ×3 (08:52→21:09)
--- NOTE | 2020-01-24 10:17 | P.PN ---
Subjective Progress Note Date: 01/24/20 This is an 84-year-old male with history of COPD, atrial fibrillation, acid reflux, hyperlipidemia, hypertension, osteoarthritis, sleep apnea utilizing a CPAP machine, hypothyroidism. Patient lives with his and is often noncompliant. Patient often forgets to take his medications and for currently m isses appointments with primary care. Patient has a son who lives close to home does have home care at this time within his home. Patient sees Dr. Hsu is a primary care physician she has discussed on multiple occasions utilizing assisted living facility to assist due to noncompliance. Patient has refused in the past. Patient came to the emergency room due to shortness of breath that has been going on for about a week. Patient states that the shortness of breath was worse today. He is out of his medications at home and was scheduled to see Dr. Hsu on Wednesday. Patient denies any fever or chills. Patient experienced episode of unconsciousness and not breathing pulse ox 80%. Patient was placed on BiPAP where he had improvement. Patient complaining of left groin pain. The site with firm with erythema and discoloration positive edema. Anterior most prominently medial measuring approximate 10 x 8 cm. Venous Doppler showed no DVT, ultrasound of the groin showed a subcutaneous hematoma. Patient is unsure if he had hurt himself. At this time patient is resting in bed confused. He has pulled his IV out multiple times. He is placed on high flow oxygen at 6 L. Patient states that his breathing is a little better compared to yesterday. Left groin still firm to touch with erythema and discoloration anterior and medial. Extremities cool to touch. Faint palpable bilateral pedal pulses noted. 01/21: Patient has been seen by Dr. Hill with recommendations for on Unasyn for E. coli bacteremia and right lower lobe pneumonia. Urinalysis was clear with nitrate and leukoesterase negative. Patient has been afebrile, heart rate 88, blood pressure 136/69, pulse ox 94% on high flow 6 L nasal cannula. Repeat blood work reveals WBC 5.6, hemoglobin 11.4, platelet count 78, INR 6.8. BUN 33 and creatinine 1.49. Cardiology is following with recommendations to continue current medication. Echocardiogram reveals EF of 50-55% with moderate concentric left ventricular hypertrophy, mild aortic stenosis, mild mitral stenosis, moderate tricuspid regurgitation, moderate pulmonary hypertension. VQ scan is intermediate probability for pulmonary embolism. Consult was admitted for pulmonary medicine. COVID-19 remains pending. 01/22: Patient seen this morning resting in bed, more alert and answering questions this morning. Vital signs are stable, patient remains afebrile, pulse 80, respirations 18, blood pressure 127/64, pulse ox 97% on 2 L nasal cannula. Labs were reviewed, INR was 1.8 today we'll likely resume Coumadin after possible thoracentesis of right lung. BUN 34 creatinine 1.48. Covid testing was negative. Patient remains on ampicillin IV for E. coli bacteremia. Awaiting CT of the abdomen ordered by Dr. Condon at this point. Consults for pulmonary, cardiology, ID remain in place. Cardiology continues IV Lasix and will continue to monitor kidney function closely. 01/23: Patient was seen today sitting up in chair, reports doing better. Awaiting results of thoracentesis done yesterday by Dr. Durant. CT of the abdomen was completed yesterday, showed diffuse soft tissue edema, small bilateral pleural effusions, cardiomegaly, and scattered calcified granuloma within the liver and spleen. Chest x-ray showed right lower lobe atelectasis small left pleural effusion. Labs were reviewed BUN is 34 creatinine was 1.48. We will await final results of thoracentesis and IDs recommendation on antibiotics for discharge. If patient will need IV antibiotics for discharge we'll place a PICC line. Patient did refuse to go to rehab and wants to go home and stated he will drive every day for antibiotics if needed. Patient was evaluated by PT and OT. Plan for possible discharge tomorrow. Review Of Systems: Constitutional: No fever, no chills, no night sweats. No weight change. Reports weakness and fatigue. No daytime sleepiness. EENT: No headache. No blurred vision or double vision, no loss of vision. No loss of Hearing, no ringing in the ears, no dizziness. Lungs: Reports mild shortness of breath with wheezing and cough, sputum production, wheezing. Cardiovascular: No chest pain, no lower extremity edema. No palpitations. No paroxysmal nocturnal dyspnea. No orthopnea. No lightheadedness or dizziness. Abdominal: no abdominal discomfort. No nausea, vomiting. no diarrhea. No constipation. No bloody or tarry stools. no loss of appetite. Genitourinary: No dysuria, increased frequency, urgency. No urinary retention. Musculoskeletal: Reports left groin pain No myalgias. No muscle weakness, no gait dysfunction, no frequent falls. No back pain. No neck pain. Integumentary: No wounds, no lesions. No rash or pruritus. No unusual bruising. No change in hair or nails. Neurologic: No aphasia. No facial droop. Reports change in mentation. No head injury. No headache. No paralysis. No paresthesia. Psychiatric: No depression. No anxiety. No mood swings. Endocrine: No abnormal blood sugars. No weight change. No excessive sweating or thirst. Physical examination General Appearance: 84-year-old cooperative, no apparent distress, older than stated age. Neck HEENT: Supple, no lymphadenopathy, no thyroid enlargement, no carotid bruits. Lungs: Lung sounds diminished with occasional scattered expiratory wheeze, mild accessory muscle usage. Chest Wall: Chest wall normal expansion with deep inspiration no tenderness and no deformity was found on exam, no costochondral pain or discomfort. Heart: Irregular rate and rhythm, S1, S2 normal, no murmur, rub or gallop. Back: Symmetric, no curvature, ROM normal, no CVA tenderness. Abdomen: Soft, non-tender, no rebound or rigidity, no hepatosplenomegaly. Extremities: Faint bilateral pedal pulses, left groin edematous, firm, erythema and discoloration noted to anterior medial aspect with a mass measuring 10 x 8 cm, lower extremities Pulses: 1+ faint and symmetric. Neurologic: Patient is awake, more alert, generalized weakness noted. Assessment and plan 1. Acute hypoxic respiratory failure secondary to acute on chronic diastolic heart failure, COPD exacerbation and possible pneumonia. Chest x-ray shows lower right lobe infiltrate. Continue oxygen, consult with pulmonary medicine added. Continue DuoNeb treatments every 4 hours, Flovent 1 puff twice daily, and IV Lasix. 2. Sepsis and E. coli bacteremia. Continue Unasyn per Dr. Hill. Awaiting recommendations patient will likely need IV antibiotics at discharge. 3. COPD exacerbation. Solu-Medrol was discontinued, pulmonary following 4. Subcutaneous hematoma related to groin pain. Consult I&D, consult vascular surgery, nystatin apply 3 times a day 5. Hypertrophic cardiomyopathy. Continue Lasix 6. Acute on chronic Diastolic congestive heart failure. Consult cardiology Continue Lasix, potassium chloride 20 mg by mouth daily 7. Septic encephalopathy. Continue above treatment. 8. Coagulopathy. Hold Coumadin. Repeat INR. Hold azithromycin 9. Acute kidney injury with chronic kidney disease stage III. Continue IV fluids, monitor renal function daily. 10. Persistent Atrial fibrillation. Hold Coumadin. Continue Toprol-XL 25 mg daily. 11. Hypertension. Metoprolol 25 mg by mouth at bedtime 12. Hyperlipidemia. Continue atorvastatin 40 mg by mouth at bedtime 13. Obstructive sleep apnea. Continue to use CPAP machine 14. Hypothyroidism. Continue levothyroxine 25mcg daily 15. Elevated troponin secondary to sepsis. Cardiology consult appreciated. 16. Debility. Consult social work for possible subacute rehab, consult PTOT 17. DVT prophylaxis. Pneumatic compression sleeves 18. GI prophylaxis. Protonix 40 mg by mouth at bedtime 19. Thrombocytopenia secondary to sepsis. 20. COVID-19 testing was negative CODE STATUS: No code Discharge plan: Home with possible home care Impression and plan of care have been directed as dictated by the signing phys lena. Breanna Jackson nurse practitioner acting as scribe for signing physician. Objective - Vital Signs Vital signs: Vital Signs Temp 97.6 F 01/24/20 08:50 Pulse 91 01/24/20 08:50 Resp 16 01/24/20 08:50 BP 117/67 01/24/20 08:50 Pulse Ox 95 01/24/20 08:50 Intake & Output 01/23/20 01/24/20 01/24/20 18:59 06:59 18:59 Intake Total 1530 310 Output Total 0 575 Balance -520 -575 310 Weight 84 kg Intake: IV 10 Invasive Line 4 10 Oral 1530 300 Output: Urine 2049 575 Other: Voiding Method Urinal Urinal Urinal Diaper Incontinent # Voids 3 2 # Bowel Movements 2 - Labs CBC & Chem 7: 01/24/20 05:54 01/24/20 05:54 Labs: Abnormal Lab Results - Last 24 Hours (Table) 01/23/20 01/23/20 01/23/20 Range/Units 11:38 16:41 20:25 RBC (4.30-5.90) m/uL Hgb (13.0-17.5) gm/dL Hct (39.0-53.0) % MCHC (31.0-37.0) g/dL Plt Count (150-450) k/uL Lymphocytes # (1.0-4.8) k/uL BUN (9-20) mg/dL Creatinine (0.66-1.25) mg/dL Glucose (74-99) mg/dL POC Glucose (mg/dL) 136 H 127 H 115 H (75-99) mg/dL AST (17-59) U/L Total Protein (6.3-8.2) g/dL Albumin (3.5-5.0) g/dL 01/24/20 01/24/20 Range/Units 05:54 05:54 RBC 3.92 L (4.30-5.90) m/uL Hgb 11.8 L (13.0-17.5) gm/dL Hct 38.3 L (39.0-53.0) % MCHC 30.9 L (31.0-37.0) g/dL Plt Count 94 L (150-450) k/uL Lymphocytes # 0.3 L (1.0-4.8) k/uL BUN 34 H (9-20) mg/dL Creatinine 1.48 H (0.66-1.25) mg/dL Glucose 108 H (74-99) mg/dL POC Glucose (mg/dL) (75-99) mg/dL AST 63 H (17-59) U/L Total Protein 5.8 L (6.3-8.2) g/dL Albumin 3.1 L (3.5-5.0) g/dL Microbiology - Last 24 Hours (Table) 01/23/20 15:15 Gram Stain - Preliminary Pleural Fluid Body Fluid Culture - Preliminary 01/23/20 15:15 Acid Fast Bacilli Culture - Preliminary Pleural Fluid 01/23/20 15:15 Fungal Culture - Preliminary Pleural Fluid 01/22/20 07:46 Blood Culture - Preliminary Blood No Growth after 24 hours
--- NOTE | 2020-01-24 10:34 | P.PN ---
Subjective Progress Note Date: 01/24/20 Principal diagnosis: Heart failure with preserved LV function This is an 84-year-old gentleman with history of long-standing persistent atrial fibrillation, hypertension, dyslipidemia, and hypertrophic cardiomyopathy was admitted to the hospital with acute hypoxic respiratory failure secondary to heart failure as well as pneumonia. The patient was seen today, January [id number]. He is feeling better internal shortness of breath. His chest examination showed clear breathing sounds bilaterally. He does have mild bilateral lower extremities edema. The echocardiogram revealed normal left ventricular systolic function with mild aortic stenosis and mild mitral stenosis and moderate pulmonary hypertension. Currently he is on Lasix IV which I recommend switching to Lasix by mouth in the next 24 hours. The creatinine continues to be stable. Also he is on oral anticoagulation. Objective - Vital Signs Vital signs: Vital Signs Temp 97.6 F 01/24/20 08:50 Pulse 91 01/24/20 08:50 Resp 16 01/24/20 08:50 BP 117/67 01/24/20 08:50 Pulse Ox 95 01/24/20 08:50 Intake & Output 01/23/20 01/24/20 01/24/20 18:59 06:59 18:59 Intake Total 1530 310 Output Total 0 575 Balance -520 -575 310 Weight 84 kg Intake: IV 10 Invasive Line 4 10 Oral 1530 300 Output: Urine 0 575 Other: Voiding Method Urinal Urinal Urinal Diaper Incontinent # Voids 3 2 # Bowel Movements 2 - Constitutional General appearance: Present: no acute distress - Respiratory Respiratory: bilateral: diminished - Cardiovascular Rhythm: irregularly irregular - Labs CBC & Chem 7: 01/24/20 05:54 01/24/20 05:54 Labs: Abnormal Lab Results - Last 24 Hours (Table) 01/23/20 01/23/20 01/23/20 Range/Units 11:38 16:41 20:25 RBC (4.30-5.90) m/uL Hgb (13.0-17.5) gm/dL Hct (39.0-53.0) % MCHC (31.0-37.0) g/dL Plt Count (150-450) k/uL Lymphocytes # (1.0-4.8) k/uL BUN (9-20) mg/dL Creatinine (0.66-1.25) mg/dL Glucose (74-99) mg/dL POC Glucose (mg/dL) 136 H 127 H 115 H (75-99) mg/dL AST (17-59) U/L Total Protein (6.3-8.2) g/dL Albumin (3.5-5.0) g/dL 01/24/20 01/24/20 Range/Units 05:54 05:54 RBC 3.92 L (4.30-5.90) m/uL Hgb 11.8 L (13.0-17.5) gm/dL Hct 38.3 L (39.0-53.0) % MCHC 30.9 L (31.0-37.0) g/dL Plt Count 94 L (150-450) k/uL Lymphocytes # 0.3 L (1.0-4.8) k/uL BUN 34 H (9-20) mg/dL Creatinine 1.48 H (0.66-1.25) mg/dL Glucose 108 H (74-99) mg/dL POC Glucose (mg/dL) (75-99) mg/dL AST 63 H (17-59) U/L Total Protein 5.8 L (6.3-8.2) g/dL Albumin 3.1 L (3.5-5.0) g/dL Microbiology - Last 24 Hours (Table) 01/22/20 07:46 Blood Culture - Preliminary Blood No Growth after 48 hours 01/23/20 15:15 Gram Stain - Preliminary Pleural Fluid Body Fluid Culture - Preliminary 01/23/20 15:15 Acid Fast Bacilli Culture - Preliminary Pleural Fluid 01/23/20 15:15 Fungal Culture - Preliminary Pleural Fluid Assessment and Plan Assessment: Assessment #1 acute exacerbation of chronic obstructive pulmonary disease #2 acute on chronic congestive heart failure secondary to diastolic dysfunction #3 long-standing persistent atrial fibrillation #4 valvular heart disease was mild aortic stenosis and mild mitral stenosis. Plan #1 continue the current medical regimen #2 I'll recommend switching the patient to Lasix by mouth in the next 24 hours #3 follow-up with the patient
[2020-01-24 11:40] LABS: Glucose,Whole Blood 168 mg/dL (75-99)
[2020-01-24 12:38] LABS: INR 1.2 (<1.2); Prothrombin Time 12.5 sec (9.0-12.0)
--- NOTE | 2020-01-24 12:38 | P.PN ---
Subjective Progress Note Date: 01/24/20 Principal diagnosis: Gram-negative sepsis secondary to E. coli. Bilateral pleural effusions right greater than left. 84-year-old male patient came into the hospital yesterday because of altered mentation and a fever. The patient is known to have chronic atrial fibrillation maintained on Coumadin on outpatient basis, in addition to that the patient has history of hypertension, hyperlipidemia, hypothyroidism, obstructive sleep apnea for which she does not utilize any CPAP therapy and he does have history of hypertensive heart disease/CHF. The patient was also noted to be increasingly short of breath. He was getting apparently more agitated and confused along with shortness of breath. He had limited cough. No significant sputum production. No aspiration. No nausea vomiting or abdominal pain. Also, the patient had developed a swelling in his left upper thigh area. Upon further evaluation this or not to be an area of hematoma. Noted the patient's PT/INR w as supratherapeutic at time of admission. Further investigation with an ultrasound of the left lower extremity showed no evidence of any DVT and basket surgery consultation was also obtained. For all this reasons, the patient came into the hospital. His white cell count was nonelevated. However, his blood culture came back positive for gram-negative bacillus pending further cultures. UA was negative. Chest exit showed a right lower lobe consolidation and follow- up chest x-ray from today showing a development of a right-sided pleural effusion. Note that the patient has been on long-term medical condition with warfarin and his PT/INR was supratherapeutic. He is currently covered with IV Unasyn as a broad-spectrum antibiotic coverage regarding the gram-negative bacillus in his blood. 01/23/2020, the patient doing well. The patient is being treated for a gram- negative sepsis. The cultures and the blood came back positive for E. coli and the patient remains on IV Unasyn. Meanwhile, CAT scan of the abdomen and pelvis was done and it showed bilateral pleural effusions right more than left and the same time there was diffuse soft tissue edema throughout the abdomen and pelvis and no acute intra-abdominal findings accounting for this gram-negative sepsis. Still considering gram-negative pneumonia/aspiration pneumonia. The patient was given vitamin K yesterday. INR is down to 1.8. Creatinine stable at 1.48. We'll likely benefit from a right-sided thoracentesis. The patient is seen today 01/24/2020 in follow-up on the selective care unit. He is currently sitting up in a chair at the bedside. Awake and alert in no acute distress. Breathing a bit easier today compared to yesterday. He is status post right-sided thoracentesis with 1000 mL of clear yellow fluid re moved. Transudate in nature. Cytology and cultures pending. Blood culture was positive for E. coli. White count 7.0. Hemoglobin 11.8. Platelet count 94,000. Sodium 141. Potassium 3.6. Creatinine 1.48. He remains on Unasyn. Bronchodilators. IV diuretics. Warfarin to be resumed. Objective - Vital Signs Vital signs: Vital Signs Temp 98.2 F 01/24/20 11:46 Pulse 79 01/24/20 12:18 Resp 16 01/24/20 11:46 BP 113/58 01/24/20 11:46 Pulse Ox 98 01/24/20 11:46 Intake & Output 01/23/20 01/24/20 01/24/20 18:59 06:59 18:59 Intake Total 1530 740 Output Total 0 575 Balance -520 -575 740 Weight 84 kg Intake: IV 20 Invasive Line 4 20 Oral 1530 720 Output: Urine 2049 57 Other: Voiding Method Urinal Urinal Urinal Diaper Incontinent # Voids 3 2 # Bowel Movements 2 - Exam Gen. appearance, pleasant 84-year-old gentleman, comfortable not in distress, not using excessive muscle breathing. O2 saturations in the upper 90s on 2 L/m per nasal cannula. Head exam was generally normal. There was no scleral icterus or corneal arcus. Mucous membranes were moist. Neck was supple and without jugular venous distension, thyromegaly, or carotid bruits. Carotids were easily palpable bilaterally. There was no adenopathy. Lungs sounds are diminished specially in the right lung base along with some dullness to percussion Cardiac exam revealed the PMI to be normally situated and sized. The rhythm was regular and no extrasystoles were noted during several minutes of auscultation. The first and second heart sounds were normal and physiologic splitting of the second heart sound was noted. There were no murmurs, rubs, clicks, or gallops. Abdominal exam revealed normal bowel sounds. The abdomen was soft, non-tender, and without masses, organomegaly, or appreciable enlargement of the abdominal a larry. Examination of the extremities revealed easily palpable radial, femoral and pedal pulses. There was no cyanosis, clubbing or edema. The left upper thigh is slightly swollen compared to the right and there is some underlying hematoma formation. No direct tenderness. No open wounds or sores. Pulses are present. Examination of the skin revealed no evidence of significant rashes, suspicious appearing nevi or other concerning lesions. Neurologically the patient is awake. No confusion. He has global weakness in all 4 extremities. No focal neurological deficits. - Labs CBC & Chem 7: 01/24/20 05:54 01/24/20 05:54 Labs: Abnormal Lab Results - Last 24 Hours (Table) 01/23/20 01/23/20 01/24/20 Range/Units 16:41 20:25 05:54 RBC 3.92 L (4.30-5.90) m/uL Hgb 11.8 L (13.0-17.5) gm/dL Hct 38.3 L (39.0-53.0) % MCHC 30.9 L (31.0-37.0) g/dL Plt Count 94 L (150-450) k/uL Lymphocytes # 0.3 L (1.0-4.8) k/uL BUN (9-20) mg/dL Creatinine (0.66-1.25) mg/dL Glucose (74-99) mg/dL POC Glucose (mg/dL) 127 H 115 H (75-99) mg/dL AST (17-59) U/L Total Protein (6.3-8.2) g/dL Albumin (3.5-5.0) g/dL 01/24/20 01/24/20 Range/Units 05:54 11:33 RBC (4.30-5.90) m/uL Hgb (13.0-17.5) gm/dL Hct (39.0-53.0) % MCHC (31.0-37.0) g/dL Plt Count (150-450) k/uL Lymphocytes # (1.0-4.8) k/uL BUN 34 H (9-20) mg/dL Creatinine 1.48 H (0.66-1.25) mg/dL Glucose 108 H (74-99) mg/dL POC Glucose (mg/dL) 168 H (75-99) mg/dL AST 63 H (17-59) U/L Total Protein 5.8 L (6.3-8.2) g/dL Albumin 3.1 L (3.5-5.0) g/dL Microbiology - Last 24 Hours (Table) 01/22/20 07:46 Blood Culture - Preliminary Blood No Growth after 48 hours 01/23/20 15:15 Gram Stain - Preliminary Pleural Fluid Body Fluid Culture - Preliminary 01/23/20 15:15 Acid Fast Bacilli Culture - Preliminary Pleural Fluid 01/23/20 15:15 Fungal Culture - Preliminary Pleural Fluid Assessment and Plan Assessment: 1 gram-negative sepsis secondary to E. coli. Currently on IV Unasyn. Consider gram-negative pneumonia/aspiration pneumonia. The patient also has a little better pleural effusions right more than left. Status post right-sided thoracentesis 01/23/2020 with 1 L of clear yellow fluid removed. Transudate in nature. 2 right lower lobe consolidation/effusion, consider gram-negative pneumonia 3 acute hypoxic respiratory failure secondary to above 4 chronic diastolic heart failure 5 chronic atrial fibrillation with a supratherapeutic PT/INR and Coumadin is on hold 6 left thigh subcutaneous hematoma, traumatic versus spontaneous, the patient had a supratherapeutic INR at time of admission 7 hypertension 8 hyperlipidemia 9 osteoarthritis 10 obstructive sleep apnea nontolerant to CPAP therapy 11 hypothyroidism 12 prostate cancer with previous history of radiation therapy to the prostate. 13 chronic kidney disease Plan: The patient was seen and evaluated by Dr. Durant Chest x-ray and labs reviewed Fluid transudate in nature, culture cytology pending Resume warfarin We'll continue to follow I, the cosigning physician, performed a history & physical examination of the patient. Lungs sounds diminished in the right lung base. Maintaining good O2 saturations in the 90s on 2 L/m per nasal cannula. I discussed the assessment and plan of care with my nurse practitioner, Jesi Osman. I attest to the above note as dictated by her.
--- NOTE | 2020-01-24 16:30 | PN ---
PROGRESS NOTE DATE OF SERVICE: 01/24/2020. REASON FOR FOLLOWUP: E. coli bacteremia. INTERVAL HISTORY: The patient is currently afebrile. Patient is breathing more comfortably. Denies having any chest pain, no shortness of breath, no cough. No abdominal pain or diarrhea. PHYSICAL EXAMINATION: Blood pressure is 115/58 with a pulse of 87, temperature is 98. General description is an elderly male, lying in bed in no distress. RESPIRATORY SYSTEM: Unlabored breathing, decreased breath sounds at the base, clear to auscultation anteriorly. ABDOMEN Soft, no tenderness. LABS: Hemoglobin 11.8, white count of 7.0, BUN of 44, creatinine 1.48. IMPRESSION: E. Coli bacteremia. For the patient did have extensive workup done so for urine is negative CT bowel pelvis was negative and a question of possible aspiration pneumonia PLAN: To continue the patient with Unasyn and plan to finish therapy on oral Augmentin and close outpatient followup. MMODL / IJN: [id number] / [id number]
[2020-01-24 16:43] LABS: Glucose,Whole Blood 121 mg/dL (75-99)
[2020-01-24] MEDS ORDERED: WARFARIN 5 MG TAB PO ONE (18:00)
[2020-01-24 20:07] LABS: Glucose,Whole Blood 162 mg/dL (75-99)
[2020-01-24] MEDS: PANTOPRAZOLE 40 MG TABLET PO SCH (20:08)
[2020-01-24] MEDS: MIRTAZAPINE 15 MG TAB PO SCH (20:08)
[2020-01-24] MEDS: HYDROcodone/APAP 5-325MG 1 EACH TAB PO PRN (20:08)
[2020-01-24] MEDS: ATORVASTATIN 40 MG TAB PO SCH (20:08)
[2020-01-25] MEDS: IPRATROPIUM-ALBUTEROL 3 ML NEB INHALATION SCH ×3 (03:40→11:35)
[2020-01-25] MEDS: INSULIN ASPART (NovoLOG) 100 UNIT/ML VIAL SQ SCH ×2 (06:10→12:25)
[2020-01-25 06:11] LABS: Glucose,Whole Blood 110 mg/dL (75-99)
[2020-01-25] MEDS: LEVOTHYROXINE 25 MCG TAB PO SCH (06:12)
[2020-01-25] MEDS: FLUTICASONE 110 MCG INHALER INHALATION SCH (08:03)
[2020-01-25 08:38] VITALS: BP 116/60; RESP 16; TEMP 98.6
[2020-01-25] MEDS: MULTIVITAMINS, THERA 1 EACH TAB PO SCH (08:41)
[2020-01-25] MEDS: FUROSEMIDE 10 MG/ML 4 ML VIAL IV SCH (08:41)
[2020-01-25] MEDS: DOCUSATE 100 MG CAP PO SCH (08:41)
[2020-01-25] MEDS: METOPROLOL SUCCINATE (ER) 25 MG TAB.ER.24H PO SCH (08:41)
[2020-01-25] MEDS: POTASSIUM CHLORIDE ER 20 MEQ TAB.ER PO SCH (08:41)
[2020-01-25] MEDS: NYSTATIN 100,000 UNIT/GM POWD 15 GM TOPICAL SCH (08:42)
[2020-01-25] MEDS: AMPICILLIN-SULBACTAM 3 GM in SODIUM CHLORIDE 0.9% 100 ML IVPB SCH (08:42)
[2020-01-25] MEDS: FLUTICASONE 50MCG/SPRAY NASAL 16GM NASAL SCH (08:42)
--- NOTE | 2020-01-25 10:10 | P.DS ---
Providers Date of admission: 01/20/20 16:27 Expected date of discharge: 01/25/20 Attending physician: Dutch Hsu MD Consults: 01/20/20 17:14 Consult Physician Stat Consulting Provider: Luis Borges Consult Reason/Comments: CHF, elevated troponin Do you want consulting provider notified?: Yes 01/21/20 08:29 Consult Physician Routine Consulting Provider: Yonas Eli Consult Reason/Comments: subcutaneous hemoatome left groin Do you want consulting provider notified?: Yes 01/21/20 08:31 Consult Physician Routine Consulting Provider: Gloria Hill Consult Reason/Comments: Subcutaneous hematoma left groin Do you want consulting provider notified?: Yes 01/22/20 01:33 Consult Physician Routine Consulting Provider: Sudeep Arora Consult Reason/Comments: COPD, PNA Do you want consulting provider notified?: Yes 01/22/20 09:25 Consult Physician Routine Consulting Provider: Enid Durant Consult Reason/Comments: copd exac Do you want consulting provider notified?: Yes Primary care physician: Dutch Hsu MD Hospital Course: This is an 84-year-old male with history of COPD, atrial fibrillation, acid reflux, hyperlipidemia, hypertension, osteoarthritis, sleep apnea utilizing a CPAP machine, hypothyroidism. Patient lives with his and is often noncompliant. Patient often forgets to take his medications and for currently misses appointments with primary care. Patient has a son who lives close to home does have home care at this time within his home. Patient sees Dr. Hsu is a primary care physician she has discussed on multiple occasions utilizing assisted living facility to assist due to noncompliance. Patient has refused in the past. Patient came to the emergency room due to shortness of breath that has been going on for about a week. Patient states that the shortness of breath was worse today. He is out of his medications at home and was scheduled to see Dr. Hsu on Wednesday. Patient denies any fever or chills. Patient experienced episode of unconsciousness and not breathing pulse ox 80%. Patient was placed on BiPAP where he had improvement. Patient complaining of left groin pain. The site with firm with erythema and discoloration positive edema. Anterior most prominently medial measuring approximate 10 x 8 cm. Venous Doppler showed no DVT, ultrasound of the groin showed a subcutaneous hematoma. Patient is unsure if he had hurt himself. At this time patient is resting in bed confused. He has pulled his IV out multiple times. He is placed on high flow oxygen at 6 L. Patient states that his breathing is a little better compared to yesterday. Left groin still firm to touch with erythema and discoloration anterior and medial. Extremities cool to touch. Faint palpable bilateral pedal pulses noted. 01/21: Patient has been seen by Dr. Hill with recommendations for on Unasyn for E. coli bacteremia and right lower lobe pneumonia. Urinalysis was clear with nitrate and leukoesterase negative. Patient has been afebrile, heart rate 88, blood pressure 136/69, pulse ox 94% on high flow 6 L nasal cannula. Repeat blood work reveals WBC 5.6, hemoglobin 11.4, platelet count 78, INR 6.8. BUN 33 and creatinine 1.49. Cardiology is following with recommendations to continue current medication. Echocardiogram reveals EF of 50-55% with moderate concentric left ventricular hypertrophy, mild aortic stenosis, mild mitral stenosis, moderate tricuspid regurgitation, moderate pulmonary hypertension. VQ scan is intermediate probability for pulmonary embolism. Consult was admitted for pulmonary medicine. COVID-19 remains pending. 01/22: Patient seen this morning resting in bed, more alert and answering questions this morning. Vital signs are stable, patient remains afebrile, pulse 80, respirations 18, blood pressure 127/64, pulse ox 97% on 2 L nasal cannula. Labs were reviewed, INR was 1.8 today we'll likely resume Coumadin after possible thoracentesis of right lung. BUN 34 creatinine 1.48. Covid testing was negative. Patient remains on ampicillin IV for E. coli bacteremia. Awaiting CT of the abdomen ordered by Dr. Condon at this point. Consults for pulmonary, cardiology, ID remain in place. Cardiology continues IV Lasix and will continue to monitor kidney function closely. 01/23: Patient was seen today sitting up in chair, reports doing better. Awaiting results of thoracentesis done yesterday by Dr. Durant. CT of the abdomen was completed yesterday, showed diffuse soft tissue edema, small bilateral pleural effusions, cardiomegaly, and scattered calcified granuloma within the liver and spleen. Chest x-ray showed right lower lobe atelectasis small left pleural effusion. Labs were reviewed BUN is 34 creatinine was 1.48. We will await final results of thoracentesis and IDs recommendation on antibiotics for discharge. If patient will need IV antibiotics for discharge we'll place a PICC line. Patient did refuse to go to rehab and wants to go home and stated he will drive every day for antibiotics if needed. Patient was evaluated by PT and OT. Plan for possible discharge tomorrow. 01/24: Patient denies any new complaints. Breathing status is improving and stable. He has been afebrile, heart rate 85, blood pressure 116/60, pulse ox 100% on [address] Condon is recommended Augmentin for home. No IV antibiotics for home. Blood sugars are running 110 and 121. Patient will be resumed back on Coumadin at home as his INR yesterday was 1.2. Pleural fluid pathology remains pending. Patient and significant other have refused subacute rehab which was recommended. manager graphic has arranged for [facility]. Patient will be discharged home today in stable condition. Assessment and plan 1. Acute hypoxic respiratory failure secondary to acute on chronic diastolic heart failure, pleural effusions status post right thoracentesis, COPD exacerbation and possible pneumonia. 2. Sepsis and E. coli bacteremia. 3. COPD exacerbation. 4. Subcutaneous hematoma left groin. 5. Hypertrophic cardiomyopathy. 6. Acute on chronic Diastolic congestive heart failure. 7. Septic encephalopathy. 8. Coagulopathy. 9. Acute kidney injury with chronic kidney disease stage III. 10. Persistent Atrial fibrillation. 11. Hypertension. 12. Hyperlipidemia. 13. Obstructive sleep apnea. 14. Hypothyroidism. 15. Elevated troponin secondary to sepsis. 16. Debility. 17. Thrombocytopenia secondary to sepsis. 18. COVID-19 infection not present Discharge plan: Home with possible home care Impression and plan of care have been directed as dictated by the signing physician. Kalie Alejo nurse practitioner acting as scribe for signing physician. Patient Condition at Discharge: Good Plan - Discharge Summary Discharge Rx Participant: No New Discharge Prescriptions: New Amoxic-Pot Clav 500-125 mg [Augmentin 500-125 mg] 1 tab PO Q12HR #20 tab Nystatin 100,000 Unit/gm Powd [Mycostatin Powder] 1 applic TOPICAL TID #100 gm predniSONE 0 mg PO DIRECTED #30 tab Continue Warfarin [Coumadin] 5 mg PO HS Atorvastatin [Lipitor] 40 mg PO HS Levothyroxine Sodium [Synthroid] 25 mcg PO DAILY Fluticasone Nasal [place] [Flonase Nasal [place]] 1 spray EA NOSTRIL DAILY Potassium Chloride ER [K-Dur 20] 20 meq PO DAILY Mirtazapine [Remeron] 15 mg PO HS Budesonide [Pulmicort Flexhaler] 1 puff INHALATION RT-BID Metoprolol Succinate (ER) [Toprol XL] 25 mg PO DAILY Furosemide [Lasix] 40 mg PO BID Umeclidinium Brm/Vilanterol Tr [Anoro Ellipta 62.5-25 Mcg INH] 1 puff INHALATION RT-DAILY Docusate [Colace] 100 mg PO BID Discharge Medication List Atorvastatin [Lipitor] 40 mg PO HS 04/12/14 [History] Levothyroxine Sodium [Synthroid] 25 mcg PO DAILY 04/12/14 [History] Warfarin [Coumadin] 5 mg PO HS 04/12/14 [History] Fluticasone Nasal [place] [Flonase Nasal [place]] 1 spray EA NOSTRIL DAILY 03/30/16 [History] Budesonide [Pulmicort Flexhaler] 1 puff INHALATION RT-BID 01/20/20 [History] Docusate [Colace] 100 mg PO BID 01/20/20 [History] Furosemide [Lasix] 40 mg PO BID 01/20/20 [History] Metoprolol Succinate (ER) [Toprol XL] 25 mg PO DAILY 01/20/20 [History] Mirtazapine [Remeron] 15 mg PO HS 01/20/20 [History] Potassium Chloride ER [K-Dur 20] 20 meq PO DAILY 01/20/20 [History] Umeclidinium Brm/Vilanterol Tr [Anoro Ellipta 62.5-25 Mcg INH] 1 puff INHALATION RT-DAILY 01/20/20 [History] Amoxic-Pot Clav 500-125 mg [Augmentin 500-125 mg] 1 tab PO Q12HR #20 tab 01/25/20 [Rx] Nystatin 100,000 Unit/gm Powd [Mycostatin Powder] 1 applic TOPICAL TID #100 gm 01/25/20 [Rx] predniSONE 0 mg PO DIRECTED #30 tab 01/25/20 [Rx] Follow up Appointment(s)/Referral(s): Dutch Hsu MD [Primary Care Provider] - 1-2 Days [facility], [NON-STAFF] - 1-2 Days Sudeep Arora DO [Doctor of Osteopathic Medicine] - 1 Week Discharge Disposition: HOME WITH HOME HEALTH SERVICES
--- NOTE | 2020-01-25 10:21 | P.PN ---
Subjective Progress Note Date: 01/25/20 Principal diagnosis: Heart failure with preserved LV function This is an 84-year-old gentleman with history of long-standing persistent atrial fibrillation, hypertension, dyslipidemia, and hypertrophic cardiomyopathy was admitted to the hospital with acute hypoxic respiratory failure secondary to heart failure as well as pneumonia. The patient was seen today over 2019. Shortness of breath is better. He denies any symptoms of chest pain or chest discomfort. I am going to DC the Lasix IV and start the patient on Lasix by mouth for possible discharge in the next 24 hours. Objective - Vital Signs Vital signs: Vital Signs Temp 98.6 F 01/25/20 08:37 Pulse 85 01/25/20 08:37 Resp 16 01/25/20 08:39 BP 116/60 01/25/20 08:37 Pulse Ox 100 01/25/20 08:37 Intake & Output 01/24/20 01/25/20 01/25/20 18:59 06:59 18:59 Intake Total 1050 30 250 Output Total 1200 460 150 Balance -150 -430 100 Intake: IV 30 30 10 Invasive Line 4 30 30 10 Oral 1020 240 Output: Urine 1200 460 150 Other: Voiding Method Urinal Urinal Urinal # Voids 2 # Bowel Movements 1 - Constitutional General appearance: Present: no acute distress - Respiratory Respiratory: bilateral: diminished - Cardiovascular Heart sounds: normal: S1, S2 - Labs CBC & Chem 7: 01/24/20 05:54 01/24/20 05:54 Labs: Abnormal Lab Results - Last 24 Hours (Table) 01/24/20 01/24/20 01/24/20 Range/Units 11:33 12:06 16:41 PT 12.5 H (9.0-12.0) sec INR 1.2 H (<1.2) POC Glucose (mg/dL) 168 H 121 H (75-99) mg/dL 01/24/20 01/25/20 Range/Units 20:05 06:10 PT (9.0-12.0) sec INR (<1.2) POC Glucose (mg/dL) 162 H 110 H (75-99) mg/dL Microbiology - Last 24 Hours (Table) 01/22/20 07:46 Blood Culture - Preliminary Blood No Growth after 72 hours 01/23/20 15:15 Acid Fast Bacilli Smear - Final Pleural Fluid Acid Fast Bacilli Culture - Preliminary 01/23/20 15:15 Gram Stain - Preliminary Pleural Fluid Body Fluid Culture - Preliminary Assessment and Plan Assessment: Assessment #1 acute exacerbation of chronic obstructive pulmonary disease #2 acute on chronic congestive heart failure secondary to diastolic dysfunction #3 long-standing persistent atrial fibrillation #4 valvular heart disease was mild aortic stenosis and mild mitral stenosis. Plan #1 continue the current medical regimen #2 DC Lasix IV and start the patient on Lasix by mouth #3 follow-up with the patient
[2020-01-25 11:52] VITALS: PULSE 76
--- NOTE | 2020-01-25 11:53 | P.PN ---
Subjective Progress Note Date: 01/25/20 Principal diagnosis: Gram-negative sepsis secondary to E. coli. Bilateral pleural effusions right greater than left. 84-year-old male patient came into the hospital yesterday because of altered mentation and a fever. The patient is known to have chronic atrial fibrillation maintained on Coumadin on outpatient basis, in addition to that the patient has history of hypertension, hyperlipidemia, hypothyroidism, obstructive sleep apnea for which she does not utilize any CPAP therapy and he does have history of hypertensive heart disease/CHF. The patient was also noted to be increasingly short of breath. He was getting apparently more agitated and confused along with shortness of breath. He had limited cough. No significant sputum production. No aspiration. No nausea vomiting or abdominal pain. Also, the patient had developed a swelling in his left upper thigh area. Upon further evaluation this or not to be an area of hematoma. Noted the patient's PT/INR w as supratherapeutic at time of admission. Further investigation with an ultrasound of the left lower extremity showed no evidence of any DVT and basket surgery consultation was also obtained. For all this reasons, the patient came into the hospital. His white cell count was nonelevated. However, his blood culture came back positive for gram-negative bacillus pending further cultures. UA was negative. Chest exit showed a right lower lobe consolidation and follow- up chest x-ray from today showing a development of a right-sided pleural effusion. Note that the patient has been on long-term medical condition with warfarin and his PT/INR was supratherapeutic. He is currently covered with IV Unasyn as a broad-spectrum antibiotic coverage regarding the gram-negative bacillus in his blood. 01/23/2020, the patient doing well. The patient is being treated for a gram- negative sepsis. The cultures and the blood came back positive for E. coli and the patient remains on IV Unasyn. Meanwhile, CAT scan of the abdomen and pelvis was done and it showed bilateral pleural effusions right more than left and the same time there was diffuse soft tissue edema throughout the abdomen and pelvis and no acute intra-abdominal findings accounting for this gram-negative sepsis. Still considering gram-negative pneumonia/aspiration pneumonia. The patient was given vitamin K yesterday. INR is down to 1.8. Creatinine stable at 1.48. We'll likely benefit from a right-sided thoracentesis. The patient is seen today 01/24/2020 in follow-up on the selective care unit. He is currently sitting up in a chair at the bedside. Awake and alert in no acute distress. Breathing a bit easier today compared to yesterday. He is status post right-sided thoracentesis with 1000 mL of clear yellow fluid re moved. Transudate in nature. Cytology and cultures pending. Blood culture was positive for E. coli. White count 7.0. Hemoglobin 11.8. Platelet count 94,000. Sodium 141. Potassium 3.6. Creatinine 1.48. He remains on Unasyn. Bronchodilators. IV diuretics. Warfarin to be resumed. The patient is seen today 01/25/2020 in follow-up on the selective care unit. He is currently resting comfortably in bed. Awake and alert in no acute distress. Denies any worsening shortness of breath, cough or congestion. Maintaining O2 saturations up to 100% on 2 L/m per nasal cannula. He is afebrile. Hemodynamically stable. Preliminary pleural fluid cultures reveal no growth. Cytology pending. He remains on Unasyn. Oral Lasix. Bronchodilators. His warfarin was resumed. Objective - Vital Signs Vital signs: Vital Signs Temp 98.6 F 01/25/20 08:37 Pulse 85 01/25/20 08:37 Resp 16 01/25/20 08:39 BP 116/60 01/25/20 08:37 Pulse Ox 100 01/25/20 08:37 Intake & Output 01/24/20 01/25/20 01/25/20 18:59 06:59 18:59 Intake Total 1050 30 250 Output Total 1200 460 150 Balance -150 -430 100 Intake: IV 30 30 10 Invasive Line 4 30 30 10 Oral 1020 240 Output: Urine 1200 460 150 Other: Voiding Method Urinal Urinal Urinal # Voids 2 # Bowel Movements 1 - Exam Gen. appearance, pleasant 84-year-old gentleman, comfortable not in distress, not using excessive muscle breathing. O2 saturations in the upper 90s on 2 L/m per nasal cannula. Head exam was generally normal. There was no scleral icterus or corneal arcus. Mucous membranes were moist. Neck was supple and without jugular venous distension, thyromegaly, or carotid bruits. Carotids were easily palpable bilaterally. There was no adenopathy. Lungs sounds are diminished specially in the right lung base along with some dullness to percussion Cardiac exam revealed the PMI to be normally situated and sized. The rhythm was regular and no extrasystoles were noted during several minutes of auscultation. The first and second heart sounds were normal and physiologic splitting of the second heart sound was noted. There were no murmurs, rubs, clicks, or gallops. Abdominal exam revealed normal bowel sounds. The abdomen was soft, non-tender, and without masses, organomegaly, or appreciable enlargement of the abdominal aorta. Examination of the extremities revealed easily palpable radial, femoral and pedal pulses. There was no cyanosis, clubbing or edema. The left upper thigh is slightly swollen compared to the right and there is some underlying hematoma formation. No direct tenderness. No open wounds or sores. Pulses are present. Examination of the skin revealed no evidence of significant rashes, suspicious appearing nevi or other concerning lesions. Neurologically the patient is awake. No confusion. He has global weakness in all 4 extremities. No focal neurological deficits. - Labs CBC & Chem 7: 01/24/20 05:54 01/24/20 05:54 Labs: Abnormal Lab Results - Last 24 Hours (Table) 01/24/20 01/24/20 01/24/20 Range/Units 12:06 16:41 20:05 PT 12.5 H (9.0-12.0) sec INR 1.2 H (<1.2) POC Glucose (mg/dL) 121 H 162 H (75-99) mg/dL 01/25/20 Range/Units 06:10 PT (9.0-12.0) sec INR (<1.2) POC Glucose (mg/dL) 110 H (75-99) mg/dL Microbiology - Last 24 Hours (Table) 01/22/20 07:46 Blood Culture - Preliminary Blood No Growth after 72 hours 01/23/20 15:15 Acid Fast Bacilli Smear - Final Pleural Fluid Acid Fast Bacilli Culture - Preliminary 01/23/20 15:15 Gram Stain - Preliminary Pleural Fluid Body Fluid Culture - Preliminary Assessment and Plan Assessment: 1 gram-negative sepsis secondary to E. coli. Currently on IV Unasyn. Consider gram-negative pneumonia/aspiration pneumonia. The patient also has a little better pleural effusions right more than left. Status post right-sided thoracentesis 01/23/2020 with 1 L of clear yellow fluid removed. Transudate in nature. Preliminary cultures reveal no growth. 2 right lower lobe consolidation/effusion, consider gram-negative pneumonia 3 acute hypoxic respiratory failure secondary to above 4 chronic diastolic heart failure 5 chronic atrial fibrillation with a supratherapeutic PT/INR and Coumadin is on hold 6 left thigh subcutaneous hematoma, traumatic versus spontaneous, the patient had a supratherapeutic INR at time of admission 7 hypertension 8 hyperlipidemia 9 osteoarthritis 10 obstructive sleep apnea nontolerant to CPAP therapy 11 hypothyroidism 12 prostate cancer with previous history of radiation therapy to the prostate. 13 chronic kidney disease Plan: The patient was seen and evaluated by Dr. Durant He is cleared for discharge from the pulmonary standpoint Follow-up in our office in 1-2 weeks' time We'll repeat a chest x-ray then. I, the cosigning physician, performed a history & physical examination of the patient. Lungs sounds diminished in the right lung base. Maintaining good O2 saturations in the 90s on 2 L/m per nasal cannula. I discussed the assessment and plan of care with my nurse practitioner, Jesi Osman. I attest to the above note as dictated by her.
[2020-01-25 12:23] LABS: Glucose,Whole Blood 125 mg/dL (75-99)
[2020-01-25] MEDS ORDERED: FUROSEMIDE 40 MG TAB PO SCH (16:00)
--- NOTE | 2020-01-26 15:26 | P.PN ---
Progress Note - Text Progress Note Date: 01/25/20 REASON FOR FOLLOWUP: E. coli bacteremia. INTERVAL HISTORY: The patient remains to be afebrile. Patient is breathing more comfortably. The patient denies having any chest pain, no shortness of breath, no cough. No abdominal pain or diarrhea overall feeling better and wants to go home. PHYSICAL EXAMINATION: Blood pressure is 110/58 with a pulse of 87, temperature is 98. General description is an elderly male, lying in bed in no distress. RESPIRATORY SYSTEM: Unlabored breathing, decreased breath sounds at the base, clear to auscultation anteriorly. ABDOMEN Soft, no tenderness. LABS: No new labs today, blood cultures repeat 01/22/2020 negative . IMPRESSION AND PLAN: E. Coli bacteremia. For the patient did have extensive workup done so for urine is negative CT bowel pelvis was negative and a question of possible aspiration pneumonia, patient has shown Overall clinical improvement on Unasyn repeat blood culture negative, to finish therapy with oral Augmentin Close outpatient follow-up
--- NOTE | 2020-02-08 09:26 | CDI ---
Documentation Clarification Form Date: 01/23/2020 01:00:00 PM From: Mirella López R.N., CCDS Admit Date: 01/20/2020 04:27:00 PM Patient Name: Dorian Gordon Visit Number: [id number] Discharge Date: 01/25/2020 02:17:00 PM ATTENTION: The Clinical Documentation Specialists (CDI) and [facility] Coding Staff appreciate your assistance in clarifying documentation. Please respond to the clarification below the line at the bottom and electronically sign. The CDI & [facility] Coding staff will review the response and follow-up if needed. Please note: Queries are made part of the Legal Health Record. If you have any questions, please contact the author of this message via ITS. Dr. Billy Maddox: Cardiology Consult 01/20 Elevated troponins most likely secondary to sepsis, possible Non-St elevated myocardial infarction. Medical Progress note 01/21 - Elevated troponin secondary to sepsis. Cardiology consult appreciated. Patient History/Risk Factors: 84-year-old male presents to the ED for shortness of breath for two weeks. Admitted with Sepsis, Pneumonia, Exacerbation of Diastolic CHF and Acute Hypoxic Respiratory Failure. Medical History: Atrial Fibrillation; COPD and Former smoker; Clinical Indicators: 01/19 Troponin: 0.059 01/20 EKG Results Documented in the Cardiology consult: Atrial Fibrillation 01/19 CXR: There is evidence of new congestive heart failure with right lower lobe infiltrate. 01/19 Blood cultures: Escherichia coli 01/19 Labs: Wbc 4.6; Lactic acid 2.1; 2.2; 2.8; 01/20 3.3 Treatment: 01/19 0.9NS 75cc/hr; Azithromycin Ivpb x1; Rocephin Ivpb x1; 01/20 Vancomycin Ivpb x 1; 01/21 Ampicillin Ivpb Q 8Hr; For accurate documentation please indicate the underlying etiology of the NSTEMI: NSTEMI Type 2 secondary to Sepsis NSTEMI please specify type and cause if known Unable to determine Other Condition, please specify MTDD
== END 2020-01-25 14:17 | disposition home health service (06) | DRG 871 ==
LOC: SUPCPDRO 13:48 → EC 13:48 → 3SCARD 16:27 → 3NCARDOBS 01-23 19:45
PROVIDERS: ADMIT Internal Medicine; ATTEND Internal Medicine
PROC: 5A09557 Assistance with Respiratory Ventilation, Greater than 96 Consecutive Hours, Continuous Positive Airway Pressure (ICD-10-PCS; 2020-01-20)
PROC: 0W993ZZ Drainage of Right Pleural Cavity, Percutaneous Approach (ICD-10-PCS; principal; 2020-01-23)
DX: A41.51 Sepsis due to Escherichia coli [E. coli] (principal); I50.33 Acute on chronic diastolic (congestive) heart failure; J18.9 Pneumonia, unspecified organism; J96.01 Acute respiratory failure with hypoxia; G93.41 Metabolic encephalopathy; I21.A1 Myocardial infarction type 2; I13.0 Hypertensive heart and chronic kidney disease with heart failure and stage 1 through stage 4 chronic kidney disease, or unspecified chronic kidney disease; J44.0 Chronic obstructive pulmonary disease with (acute) lower respiratory infection; J44.1 Chronic obstructive pulmonary disease with (acute) exacerbation; I48.11 Longstanding persistent atrial fibrillation; I42.2 Other hypertrophic cardiomyopathy; N17.9 Acute kidney failure, unspecified; D68.9 Coagulation defect, unspecified; J91.8 Pleural effusion in other conditions classified elsewhere; J98.11 Atelectasis; Z20.828 Contact with and (suspected) exposure to other viral communicable diseases; E78.5 Hyperlipidemia, unspecified; F32.9 Major depressive disorder, single episode, unspecified; G47.33 Obstructive sleep apnea (adult) (pediatric); I27.20 Pulmonary hypertension, unspecified; D69.59 Other secondary thrombocytopenia; K21.9 Gastro-esophageal reflux disease without esophagitis; M19.90 Unspecified osteoarthritis, unspecified site; Z96.652 Presence of left artificial knee joint; E86.0 Dehydration; R53.81 Other malaise; T45.515A Adverse effect of anticoagulants, initial encounter; N18.3 Chronic kidney disease, stage 3 (moderate); C61 Malignant neoplasm of prostate; M79.81 Nontraumatic hematoma of soft tissue; E03.9 Hypothyroidism, unspecified; Z79.899 Other long term (current) drug therapy; Z79.890 Hormone replacement therapy; Z79.51 Long term (current) use of inhaled steroids; Z79.01 Long term (current) use of anticoagulants; Z90.89 Acquired absence of other organs; Z90.49 Acquired absence of other specified parts of digestive tract; Z98.890 Other specified postprocedural states; Z92.3 Personal history of irradiation; Z80.1 Family history of malignant neoplasm of trachea, bronchus and lung; Z87.891 Personal history of nicotine dependence; Z91.19 Patient's noncompliance with other medical treatment and regimen
CPT/HCPCS: 36415; 36600; 71045; 74176; 78582; 80048; 80053; 81003; 82550; 82805; 82945; 83605; 83615; 83735; 83880; 84145; 84157; 84484; 85025; 85027; 85379; 85610; 85652; 85730; 86140; 87040; 87070; 87077; 87102; 87116; 87186; 87205; 87206; 87252; 87496; 87498; 87502; 87529; 87634; 87798; 88108; 88305; 88341; 88342; 89050; 93005; 93306; 94640; 94660; 94760; 96361; 96365; 96375; 99291

== ENCOUNTER 2020-03-06 16:12 | Inpatient (IN) | payer MEDICARE, BC ==
--- NOTE | 2020-03-06 16:15 | ED ---
General Adult HPI - General Stated complaint: weakness Time Seen by Provider: 03/06/20 16:14 Source: patient, RN/MD (Case was discussed with Dr. Lopez who states patient has been having increased weakness and needs admission for placement. Patient does have crackles and dyspnea with weight gain), RN notes reviewed Limitations: no limitations - History of Present Illness Initial comments: Patient is a pleasant 84-year-old male presenting to the emergency department after being seen by Dr. Ellis. Patient was in the hospital month ago with CHF. Patient has had increased weakness and dyspnea. Patient states dyspnea does worsen with exertion. Dr. Ellis was concerned about crackles in the lungs and a 27 pound weight gain recently. She does feel the patient will end up needing placement. No chest pain. Patient does have fatigue. - Related Data Home Medications Medication Instructions Recorded Confirmed Atorvastatin [Lipitor] 40 mg PO HS 04/12/14 03/06/20 Levothyroxine Sodium [Synthroid] 25 mcg PO DAILY 04/12/14 03/06/20 Warfarin [Coumadin] 5 mg PO HS 04/12/14 03/06/20 Fluticasone Nasal [place] [Flonase 1 spray EA NOSTRIL DAILY 03/30/16 03/06/20 Nasal [place]] Budesonide [Pulmicort Flexhaler] 1 puff INHALATION RT-BID 01/20/20 03/06/20 Docusate [Colace] 100 mg PO BID 01/20/20 03/06/20 Furosemide [Lasix] 40 mg PO BID 01/20/20 03/06/20 Metoprolol Succinate (ER) [Toprol 25 mg PO DAILY 01/20/20 03/06/20 XL] Mirtazapine [Remeron] 15 mg PO HS 01/20/20 03/06/20 Potassium Chloride ER [K-Dur 20] 20 meq PO DAILY 01/20/20 03/06/20 Umeclidinium Brm/Vilanterol Tr 1 puff INHALATION RT-DAILY 01/20/20 03/06/20 [Anoro Ellipta 62.5-25 Mcg INH] Previous Rx's Medication Instructions Recorded Nystatin 100,000 Unit/gm Powd 1 applic TOPICAL TID #100 gm 01/25/20 [Mycostatin Powder] Allergies Allergy/AdvReac Type Severity Reaction Status Date / Time No Known Allergies Allergy Verified 03/06/20 17:56 Review of Systems ROS Statement: Those systems with pertinent positive or pertinent negative responses have been documented in the HPI. ROS Other: All systems not noted in ROS Statement are negative. Constitutional: Denies: fever Eyes: Denies: eye pain ENT: Denies: ear pain Respiratory: Reports: as per HPI, dyspnea. Denies: cough Cardiovascular: Denies: chest pain Endocrine: Reports: fatigue Gastrointestinal: Denies: abdominal pain Genitourinary: Denies: dysuria Musculoskeletal: Denies: back pain Skin: Denies: rash Neurological: Reports: as per HPI Past Medical History Past Medical History: Atrial Fibrillation, COPD, GERD/Reflux, Hyperlipidemia, Hypertension, Osteoarthritis (OA), Sleep Apnea/CPAP/BIPAP, Thyroid Disorder Additional Past Medical History / Comment(s): NO CPAP. 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 History of Any Multi-Drug Resistant Organisms: None Reported Past Surgical History: Adenoidectomy, Cholecystectomy, Hernia Repair, Joint Replacement, Orthopedic Surgery, Tonsillectomy Additional Past Surgical History / Comment(s): TOTAL L KNEE TODAY 04/17/14 Past Anesthesia/Blood Transfusion Reactions: No Reported Reaction Past Psychological History: Depression Smoking Status: Former smoker Past Alcohol Use History: None Reported Additional Past Alcohol Use History / Comment(s): QUIT 5 YEARS (2010), SMOKED 62YR, 1 PPD. Past Drug Use History: None Reported - Past Family History Brother(s) Family Medical History: Cancer Additional Family Medical History / Comment(s): BROTHER OF LUNG CANCER. HE WAS A SMOKER. Son(s) Family Medical History: Cancer Father Family Medical History: No Reported History Additional Family Medical History / Comment(s): FATHER OF 89 YRS. General Exam Limitations: no limitations General appearance: alert, in no apparent distress Head exam: Present: normocephalic Eye exam: Present: normal appearance Neck exam: Present: normal inspection Respiratory exam: Present: rales (Bilateral bases) Cardiovascular Exam: Present: regular rate, irregular rhythm GI/Abdominal exam: Present: soft. Absent: tenderness Extremities exam: Present: pedal edema (Trace bilateral). Absent: calf tenderness Back exam: Present: normal inspection Neurological exam: Present: alert. Absent: motor sensory deficit Psychiatric exam: Present: normal affect, normal mood Skin exam: Present: normal color Course Vital Signs 03/06/20 03/06/20 03/06/20 16:14 18:00 18:45 Temperature 97.4 F L Pulse Rate 68 81 95 Respiratory 20 18 20 Rate Blood Pressure 105/61 98/74 109/74 O2 Sat by Pulse 93 L 92 L 100 Oximetry EKG Findings - EKG Comments: EKG Findings:: A flutter with rate of 95. QRS 112. QT 396. QTc 497. Superior axis. Incomplete right bundle-branch block. Septal Q waves. No acute ST change. Medical Decision Making - Medical Decision Making Patient was updated on plan. Case was discussed with Dr. Obrien, who will admit covered for Dr. Ellis. - Lab Data Result diagrams: 03/06/20 18:00 03/06/20 18:00 Lab Results 03/06/20 03/06/20 03/06/20 Range/Units 18:00 18:00 18:00 WBC 3.4 L (3.8-10.6) k/uL RBC 4.24 L (4.30-5.90) m/uL Hgb 12.6 L (13.0-17.5) gm/dL Hct 40.7 (39.0-53.0) % MCV 96.0 (80.0-100.0) fL MCH 29.8 (25.0-35.0) pg MCHC 31.0 (31.0-37.0) g/dL RDW 14.7 (11.5-15.5) % Plt Count 129 L (150-450) k/uL Neutrophils % 79 % Lymphocytes % 7 % Monocytes % 10 % Eosinophils % 2 % Basophils % 1 % Neutrophils # 2.7 (1.3-7.7) k/uL Lymphocytes # 0.3 L (1.0-4.8) k/uL Monocytes # 0.3 (0-1.0) k/uL Eosinophils # 0.1 (0-0.7) k/uL Basophils # 0.0 (0-0.2) k/uL Hypochromasia Slight PT >130.0 H (9.0-12.0) sec INR >10.0 H* (<1.2) APTT 52.6 H (22.0-30.0) sec Sodium (137-145) mmol/L Potassium (3.5-5.1) mmol/L Chloride (98-107) mmol/L Carbon Dioxide (22-30) mmol/L Anion Gap mmol/L BUN (9-20) mg/dL Creatinine (0.66-1.25) mg/dL Est GFR (CKD-EPI)AfAm (>60 ml/min/1.73 sqM) Est GFR (CKD-EPI)NonAf (>60 ml/min/1.73 sqM) Glucose (74-99) mg/dL Calcium (8.4-10.2) mg/dL Total Bilirubin (0.2-1.3) mg/dL AST (17-59) U/L ALT (4-49) U/L Alkaline Phosphatase (38-126) U/L Troponin I (0.000-0.034) ng/mL NT-Pro-B Natriuret Pep pg/mL Total Protein (6.3-8.2) g/dL Albumin (3.5-5.0) g/dL Urine Color Yellow Urine Appearance Clear (Clear) Urine pH 5.5 (5.0-8.0) Ur Specific [place] 1.023 (1.001-1.035) Urine Protein 1+ H (Negative) Urine Glucose (UA) Negative (Negative) Urine Ketones Negative (Negative) Urine Blood Negative (Negative) Urine Nitrite Negative (Negative) Urine Bilirubin Negative (Negative) Urine Urobilinogen 2.0 (<2.0) mg/dL Ur Leukocyte Esterase Negative (Negative) Urine RBC <1 (0-5) /hpf Urine WBC 1 (0-5) /hpf Urine Bacteria Rare H (None) /hpf Hyaline Casts 30 H (0-2) /lpf Urine Mucus Few H (None) /hpf 03/06/20 03/06/20 03/06/20 Range/Units 18:00 18:00 18:00 WBC (3.8-10.6) k/uL RBC (4.30-5.90) m/uL Hgb (13.0-17.5) gm/dL Hct (39.0-53.0) % MCV (80.0-100.0) fL MCH (25.0-35.0) pg MCHC (31.0-37.0) g/dL RDW (11.5-15.5) % Plt Count (150-450) k/uL Neutrophils % % Lymphocytes % % Monocytes % % Eosinophils % % Basophils % % Neutrophils # (1.3-7.7) k/uL Lymphocytes # (1.0-4.8) k/uL Monocytes # (0-1.0) k/uL Eosinophils # (0-0.7) k/uL Basophils # (0-0.2) k/uL Hypochromasia PT (9.0-12.0) sec INR (<1.2) APTT (22.0-30.0) sec Sodium 140 (137-145) mmol/L Potassium 3.9 (3.5-5.1) mmol/L Chloride 100 (98-107) mmol/L Carbon Dioxide 37 H (22-30) mmol/L Anion Gap 3 mmol/L BUN 29 H (9-20) mg/dL Creatinine 1.38 H (0.66-1.25) mg/dL Est GFR (CKD-EPI)AfAm 55 (>60 ml/min/1.73 sqM) Est GFR (CKD-EPI)NonAf 47 (>60 ml/min/1.73 sqM) Glucose 104 H (74-99) mg/dL Calcium 9.0 (8.4-10.2) mg/dL Total Bilirubin 0.7 (0.2-1.3) mg/dL AST 46 (17-59) U/L ALT 24 (4-49) U/L Alkaline Phosphatase 86 (38-126) U/L Troponin I 0.128 H* (0.000-0.034) ng/mL NT-Pro-B Natriuret Pep 91951 pg/mL Total Protein 6.0 L (6.3-8.2) g/dL Albumin 3.5 (3.5-5.0) g/dL Urine Color Urine Appearance (Clear) Urine pH (5.0-8.0) Ur Specific [place] (1.001-1.035) Urine Protein (Negative) Urine Glucose (UA) (Negative) Urine Ketones (Negative) Urine Blood (Negative) Urine Nitrite (Negative) Urine Bilirubin (Negative) Urine Urobilinogen (<2.0) mg/dL Ur Leukocyte Esterase (Negative) Urine RBC (0-5) /hpf Urine WBC (0-5) /hpf Urine Bacteria (None) /hpf Hyaline Casts (0-2) /lpf Urine Mucus (None) /hpf - Radiology Data Radiology results: image reviewed (Chest x-ray shows CHF With moderate pleural effusion bilateral, increased from prior) Disposition Clinical Impression: Congestive heart failure Disposition: ADMITTED IP TO THIS HOSP Condition: Serious Is patient prescribed a controlled substance at d/c from ED?: No Referrals: Dutch Hsu MD [Primary Care Provider] - 1-2 days Decision Time: 19:51
--- NOTE | 2020-03-06 17:25 | XR ---
EXAMINATION TYPE: XR chest 2V DATE OF EXAM: 03/06/2020 COMPARISON: 01/23/2020 HISTORY: Difficulty breathing TECHNIQUE: FINDINGS: There are moderate bilateral pleural effusions. Heart is enlarged. There is mild pulmonary vascular congestion. There are chest leads. IMPRESSION: Mild congestive heart failure. Moderate pleural effusions are increased compared to old e xam.
[2020-03-06 18:21] LABS: Basophils % (A) 1 %; Eosinophils # (A) 0.1 k/uL (0-0.7); Eosinophils % (A) 2 %; HCT 40.7 % (39.0-53.0); HGB 12.6 gm/dL (13.0-17.5); Hypochromasia Slight; Lymphocytes # (A) 0.3 k/uL (1.0-4.8); Lymphocytes % (A) 7 %; MCH 29.8 pg (25.0-35.0); Monocytes # (A) 0.3 k/uL (0-1.0); Monocytes % (A) 10 %; Neutrophils # (A) 2.7 k/uL (1.3-7.7); Neutrophils % (A) 79 %; Platelet Count 129 k/uL (150-450); RBC 4.24 m/uL (4.30-5.90); RDW 14.7 % (11.5-15.5); WBC 3.4 k/uL (3.8-10.6)
[2020-03-06 18:26] LABS: Albumin 3.5 g/dL (3.5-5.0); Potassium 3.9 mmol/L (3.5-5.1); Total Bilirubin 0.7 mg/dL (0.2-1.3)
[2020-03-06 18:45] LABS: Appearance,Urine Clear (Clear); Bacteria,Urine Rare /hpf; Bilirubin,Urine Negative (Negative); Blood,Urine Negative (Negative); Color,Urine Yellow; Glucose,Urine (UA) Negative (Negative); Hyaline Casts,Urine 30 /lpf (0-2); Ketones,Urine Negative (Negative); Leukocyte Esterase,Urine Negative (Negative); Mucus,Urine Few /hpf; Nitrite,Urine Negative (Negative); PH, Urine 5.5 (5.0-8.0); Protein,Urine 1+ (Negative); RBC,Urine <1 /hpf (0-5); Specific Gravity,Urine 1.023 (1.001-1.035); WBC,Urine 1 /hpf (0-5)
[2020-03-06 18:56] LABS: Partial Thromboplastin Time 52.6 sec (22.0-30.0)
[2020-03-06 18:59] LABS: Prothrombin Time >130.0 sec (9.0-12.0)
[2020-03-06 19:00] LABS: INR >10.0 (<1.2)
[2020-03-06] MEDS ORDERED: WARFARIN 5 MG TAB PO SCH (21:00)
[2020-03-06] MEDS ORDERED: PHYTONADIONE ORAL 5 MG/5 ML ORAL.SYRG PO ONE (22:45)
[2020-03-06] MEDS: FUROSEMIDE 10 MG/ML 4 ML VIAL IV SCH (22:53)
[2020-03-06] MEDS: ATORVASTATIN 40 MG TAB PO SCH (22:53)
[2020-03-06] MEDS: DOCUSATE 100 MG CAP PO SCH (22:53)
[2020-03-06] MEDS: MIRTAZAPINE 15 MG TAB PO SCH (22:53)
[2020-03-06] MEDS: NITROGLYCERIN OINT 1 INCH/GM PACKET TOPICAL SCH (22:53)
[2020-03-06] MEDS: FUROSEMIDE 40 MG TAB PO SCH (22:53)
[2020-03-06] MEDS: NYSTATIN 100,000 UNIT/GM POWD 15 GM TOPICAL SCH (22:54)
[2020-03-06] MEDS: MELATONIN 3 MG TABLET PO SCH (22:55)
[2020-03-07] MEDS: FUROSEMIDE 10 MG/ML 4 ML VIAL IV SCH ×3 (04:05→20:34)
[2020-03-07 05:54] LABS: Basophils % (A) 0 %; Eosinophils # (A) 0.1 k/uL (0-0.7); Eosinophils % (A) 2 %; HCT 38.9 % (39.0-53.0); Hypochromasia Moderate; Lymphocytes # (A) 0.3 k/uL (1.0-4.8); Lymphocytes % (A) 8 %; MCH 29.9 pg (25.0-35.0); MCV 96.6 fL (80.0-100.0); Mean Platelet Volume 8.2; Monocytes # (A) 0.3 k/uL (0-1.0); Monocytes % (A) 9 %; Neutrophils # (A) 2.8 k/uL (1.3-7.7); Neutrophils % (A) 80 %; Platelet Count 108 k/uL (150-450); RBC 4.03 m/uL (4.30-5.90); RDW 14.8 % (11.5-15.5); WBC 3.5 k/uL (3.8-10.6)
[2020-03-07 06:06] LABS: Albumin 3.5 g/dL (3.5-5.0); Calcium 8.8 mg/dL (8.4-10.2); Potassium 3.6 mmol/L (3.5-5.1); Total Bilirubin 0.7 mg/dL (0.2-1.3); Total Protein 5.8 g/dL (6.3-8.2)
[2020-03-07 06:24] LABS: Partial Thromboplastin Time 54.6 sec (22.0-30.0); Prothrombin Time 123.7 sec (9.0-12.0)
[2020-03-07] MEDS: PANTOPRAZOLE 40 MG TABLET PO SCH (06:30)
[2020-03-07] MEDS: LEVOTHYROXINE 25 MCG TAB PO SCH (06:30)
[2020-03-07 06:49] LABS: INR >10.0 (<1.2)
[2020-03-07] MEDS: FUROSEMIDE 40 MG TAB PO SCH (08:03)
[2020-03-07] MEDS: FORMOTEROL FUMARATE 20 MCG/2 ML NEBU INHALATION SCH ×2 (08:04→19:17)
[2020-03-07] MEDS: IPRATROPIUM 0.5 MG/2.5 ML NEBU INHALATION SCH ×4 (08:04→19:17)
[2020-03-07] MEDS: FLUTICASONE 110 MCG INHALER INHALATION SCH ×2 (08:05→19:17)
[2020-03-07] MEDS: NYSTATIN 100,000 UNIT/GM POWD 15 GM TOPICAL SCH ×3 (08:42→22:58)
[2020-03-07] MEDS: FLUTICASONE 50MCG/SPRAY NASAL 16GM EA NOSTRIL SCH (08:45)
[2020-03-07] MEDS: NITROGLYCERIN OINT 1 INCH/GM PACKET TOPICAL SCH ×4 (08:46→22:58)
[2020-03-07] MEDS: DOCUSATE 100 MG CAP PO SCH ×2 (08:46→20:34)
[2020-03-07] MEDS: POTASSIUM CHLORIDE ER 20 MEQ TAB.ER PO SCH (08:46)
[2020-03-07] MEDS: METOPROLOL SUCCINATE (ER) 25 MG TAB.ER.24H PO SCH (08:46)
[2020-03-07] MEDS ORDERED: PHYTONADIONE ORAL 5 MG/5 ML ORAL.SYRG PO STA (08:53)
--- NOTE | 2020-03-07 12:27 | P.HPIM ---
History of Present Illness H&P Date: 03/07/20 Chief Complaint: Weakness, dyspnea HISTORY OF PRESENT ILLNESS This is an 84-year-old male patient of Dr. Hsu and Dr. Elmer Borges with past medical history of COPD, chronic diastolic heart failure with EF of 50-55%, mild aortic stenosis, mild mitral stenosis, moderate tricuspid regurgitation and moderate pulmonary hypertension, persistent atrial fibrillation on chronic Coumadin, gastroesophageal reflux disease, hypertension, hyperlipidemia, generalized osteoarthritis, obstructive sleep apnea with CPAP, hypothyroidism, chronic kidney disease stage III. Patient was seen and Dr. Ellis's office yesterday and there was concern about weight gain, weakness that is worsening and concern for heart failure. Patient presented to [facility] emergency center, afebrile, heart rate 60, blood pressure 105/61, pulse ox 93% on oxygen. EKG was atrial fibrillation. Chest x-ray mild heart failure, moderate pleural effusions are i ncreased compared to old exam. WBC 3.4, hemoglobin 12.6, platelet count 129. Coumadin greater than 10. BUN 39 creatinine 1.38 with CO2 37. Troponin 0.128, 0.130, 0.132. Patient admitted to the cardiac stepdown unit and cardiology consult requested. Patient is status post vitamin K 5 mg yesterday and 10 mg today. Coumadin has been placed on hold. Patient started on IV Lasix 40 mg every 8 hours. REVIEW OF SYSTEMS Constitutional: No fever, no chills, no night sweats. No weight change. Reports weakness, reports fatigue. No daytime sleepiness. EENT: No headache. No blurred vision or double vision, no loss of vision. No dizziness. No nasal drainage or congestion. No epistaxis. No sore throat. Lungs: Reports shortness of breath, cough, no sputum production. No wheezing. Cardiovascular: No chest pain, reports lower extremity edema. No palpitations. No paroxysmal nocturnal dyspnea. Reports orthopnea. No lightheadedness or dizziness. No syncopal episodes. Abdominal: No abdominal pain. No nausea, vomiting. No diarrhea. No constipation. No bloody or tarry stools.. No loss of appetite. Genitourinary: No dysuria, increased frequency, urgency. No urinary retention. Musculoskeletal: No myalgias. Reports muscle weakness, no gait dysfunction, no frequent falls. No back pain. No neck pain. Integumentary: No wounds, no lesions. No rash or pruritus. No unusual bruising. No change in hair or nails. Neurologic: No aphasia. No facial droop. No change in mentation. No head injury. No headache. No paralysis. No paresthesia. Psychiatric: No depression. No anxiety. No mood swings. Endocrine: No abnormal blood sugars. No weight change. No excessive sweating or thirst. No cold intolerance. SOCIAL HISTORY The patient was a smoker for 60 years at 1 pack per day and quit in 2010. He denies any marijuana, alcohol or illicit drug use. He is retired from the city of [place]. He lives at home with his . FAMILY HISTORY Mother at age 32, mild from from a motor vehicle accident. Father at age 89 from old age. Patient is one sister that has multiple medical problems that he is notspecific son. Patient has 2 brothers and a past and he does not know their medical history. Patient has 2 children with no major medical problems. PHYSICAL EXAMINATION Gen: This is an 84-year-old male. Patient is sitting up in bed appears to be comfortable and in no acute distress. HEENT: Head is atraumatic, normocephalic. Pupils equal, round. Sclerae is anicteric. NECK: Supple. No JVD. No lymphadenopathy. No thyromegaly. LUNGS: Clear to auscultation. No wheezes or rhonchi. No intercostal retractions. HEART: Irregularly irregular ate and rhythm. No murmur. cardiac technologist atrial fibrillation. ABDOMEN: Soft. Bowel sounds are present. No masses. No tenderness. EXTREMITIES: 1+ pedal edema. No calf tenderness. NEUROLOGICAL: Patient is awake, alert and oriented x3. Cranial nerves 2 through 12 are grossly intact. ASSESSMENT AND PLAN 1. Acute dyspnea, generalized weakness and possible weight gain secondary to acute on chronic diastolic heart failure. Continue oxygen, consult with cardiology. Continue Lasix 40 mg IV every 8 hours, I&O, daily weights, monitor renal function and electrolytes. Continue Toprol-XL 25 mg daily. Echocardiogram ordered. 2. Hypercoagulopathy secondary to Coumadin. Coumadin is on hold. Patient is status post vitamin K 2 doses. Repeat INR in the morning. 3. Elevated troponins, rule out acute coronary syndrome. Cardiology consult. 4. COPD without exacerbation. Continue Perforomist twice daily, Atrovent 4 times daily. 5. Hypertrophic cardiomyopathy. Continue Lasix. 6. Chronic kidney disease stage III. Monitor renal function daily. 10. Persistent Atrial fibrillation. Hold Coumadin. Continue Toprol-XL 25 mg daily. Patient would benefit from use of eliquis versus resuming Coumadin. 11. Hypertension. Metoprolol 25 mg by mouth at bedtime 12. Hyperlipidemia. Continue atorvastatin 40 mg by mouth at bedtime 13. Obstructive sleep apnea. Continue to use CPAP machine 14. Hypothyroidism. Continue levothyroxine 25mcg daily 15. Chronic thrombocytopenia. 16. Debility. Consult PT, OT, social work for subacute rehab 17. DVT prophylaxis. Hypercoagulopathy state. No need for heparin subcu 18. GI prophylaxis. Protonix 40 mg by mouth at bedtime 19. Recurrent depression. Continue Remeron. Patient will be admitted to the hospital for a minimum of 2 night stay. CODE STATUS: No code Discharge plan: Subacute rehab Impression and plan of care have been directed as dictated by the signing physician. Kalie Alejo nurse practitioner acting as scribe for signing physician. Past Medical History Past Medical History: Atrial Fibrillation, COPD, GERD/Reflux, Hyperlipidemia, Hypertension, Osteoarthritis (OA), Sleep Apnea/CPAP/BIPAP, Thyroid Disorder Additional Past Medical History / Comment(s): NO CPAP. 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 History of Any Multi-Drug Resistant Organisms: None Reported Past Surgical History: Adenoidectomy, Cholecystectomy, Hernia Repair, Joint Replacement, Orthopedic Surgery, Tonsillectomy Additional Past Surgical History / Comment(s): TOTAL L KNEE 04/17/14 Past Anesthesia/Blood Transfusion Reactions: No Reported Reaction Past Psychological History: Depression Smoking Status: Former smoker Past Alcohol Use History: None Reported Additional Past Alcohol Use History / Comment(s): QUIT 15 YEARS (2004), SMOKED 62YR, 1 PPD. Past Drug Use History: None Reported - Past Family History Brother(s) Family Medical History: Cancer Additional Family Medical History / Comment(s): BROTHER OF LUNG CANCER. HE WAS A SMOKER. Son(s) Family Medical History: Cancer Father Family Medical History: No Reported History Additional Family Medical History / Comment(s): FATHER OF 89 YRS. Medications and Allergies Home Medications Medication Instructions Recorded Confirmed Type Atorvastatin [Lipitor] 40 mg PO HS 04/12/14 03/06/20 History Levothyroxine Sodium [Synthroid] 25 mcg PO DAILY 04/12/14 03/06/20 History Warfarin [Coumadin] 5 mg PO HS 04/12/14 03/06/20 History Fluticasone Nasal [place] [Flonase 1 spray EA NOSTRIL DAILY 03/30/16 03/06/20 History Nasal [place]] Budesonide [Pulmicort Flexhaler] 1 puff INHALATION RT-BID 01/20/20 03/06/20 History Docusate [Colace] 100 mg PO BID 01/20/20 03/06/20 History Furosemide [Lasix] 40 mg PO BID 01/20/20 03/06/20 History Metoprolol Succinate (ER) [Toprol 25 mg PO DAILY 01/20/20 03/06/20 History XL] Mirtazapine [Remeron] 15 mg PO HS 01/20/20 03/06/20 History Potassium Chloride ER [K-Dur 20] 20 meq PO DAILY 01/20/20 03/06/20 History Umeclidinium Brm/Vilanterol Tr 1 puff INHALATION RT-DAILY 01/20/20 03/06/20 History [Anoro Ellipta 62.5-25 Mcg INH] Nystatin 100,000 Unit/gm Powd 1 applic TOPICAL TID #100 gm 01/25/20 03/06/20 Rx [Mycostatin Powder] Apixaban [Eliquis] 5 mg PO BID #60 tab 03/07/20 Rx Allergies Allergy/AdvReac Type Severity Reaction Status Date / Time No Known Allergies Allergy Verified 03/06/20 17:56 Physical Exam Vitals: Vital Signs Temp Pulse Pulse Resp BP BP Pulse Ox 03/07/20 08:30 86 03/07/20 08:20 84 03/07/20 08:15 84 03/07/20 08:05 87 03/07/20 08:00 94 22 110/67 92 L 03/07/20 04:00 68 20 118/57 92 L 03/06/20 23:38 95 20 03/06/20 23:31 98.1 F 95 20 104/60 93 L 03/06/20 20:14 97.9 F 78 18 101/69 98 09/16/20 20:11 98.2 F 85 22 117/75 94 L 03/06/20 18:45 95 20 109/74 100 03/06/20 18:00 81 18 98/74 92 L 03/06/20 16:14 97.4 F L 68 20 105/61 93 L Intake and Output 03/06/20 03/07/20 03/07/20 22:59 06:59 14:59 Output Total 700 300 Balance -700 -300 Output: Urine 700 300 Other: Voiding Method Toilet Weight 82.554 kg 85.5 kg Results CBC & Chem 7: 03/07/20 05:35 03/07/20 05:35 Labs: Abnormal Lab Results - Last 24 Hours (Table) 03/06/20 03/06/20 03/06/20 Range/Units 18:00 18:00 18:00 WBC 3.4 L (3.8-10.6) k/uL RBC 4.24 L (4.30-5.90) m/uL Hgb 12.6 L (13.0-17.5) gm/dL Hct (39.0-53.0) % Plt Count 129 L (150-450) k/uL Lymphocytes # 0.3 L (1.0-4.8) k/uL PT >130.0 H (9.0-12.0) sec INR >10.0 H* (<1.2) APTT 52.6 H (22.0-30.0) sec Carbon Dioxide (22-30) mmol/L BUN (9-20) mg/dL Creatinine (0.66-1.25) mg/dL Glucose (74-99) mg/dL Troponin I (0.000-0.034) ng/mL Total Protein (6.3-8.2) g/dL Urine Protein 1+ H (Negative) Urine Bacteria Rare H (None) /hpf Hyaline Casts 30 H (0-2) /lpf Urine Mucus Few H (None) /hpf 03/06/20 03/06/20 03/06/20 Range/Units 18:00 18:00 20:28 WBC (3.8-10.6) k/uL RBC (4.30-5.90) m/uL Hgb (13.0-17.5) gm/dL Hct (39.0-53.0) % Plt Count (150-450) k/uL Lymphocytes # (1.0-4.8) k/uL PT (9.0-12.0) sec INR (<1.2) APTT (22.0-30.0) sec Carbon Dioxide 37 H (22-30) mmol/L BUN 29 H (9-20) mg/dL Creatinine 1.38 H (0.66-1.25) mg/dL Glucose 104 H (74-99) mg/dL Troponin I 0.128 H* 0.130 H* (0.000-0.034) ng/mL Total Protein 6.0 L (6.3-8.2) g/dL Urine Protein (Negative) Urine Bacteria (None) /hpf Hyaline Casts (0-2) /lpf Urine Mucus (None) /hpf 03/07/20 03/07/20 03/07/20 Range/Units 00:10 05:35 05:35 WBC 3.5 L (3.8-10.6) k/uL RBC 4.03 L (4.30-5.90) m/uL Hgb 12.0 L (13.0-17.5) gm/dL Hct 38.9 L (39.0-53.0) % Plt Count 108 L (150-450) k/uL Lymphocytes # 0.3 L (1.0-4.8) k/uL PT 123.7 H (9.0-12.0) sec INR >10.0 H* (<1.2) APTT 54.6 H (22.0-30.0) sec Carbon Dioxide (22-30) mmol/L BUN (9-20) mg/dL Creatinine (0.66-1.25) mg/dL Glucose (74-99) mg/dL Troponin I 0.132 H* (0.000-0.034) ng/mL Total Protein (6.3-8.2) g/dL Urine Protein (Negative) Urine Bacteria (None) /hpf Hyaline Casts (0-2) /lpf Urine Mucus (None) /hpf 03/07/20 Range/Units 05:35 WBC (3.8-10.6) k/uL RBC (4.30-5.90) m/uL Hgb (13.0-17.5) gm/dL Hct (39.0-53.0) % Plt Count (150-450) k/uL Lymphocytes # (1.0-4.8) k/uL PT (9.0-12.0) sec INR (<1.2) APTT (22.0-30.0) sec Carbon Dioxide 37 H (22-30) mmol/L BUN 26 H (9-20) mg/dL Creatinine 1.37 H (0.66-1.25) mg/dL Glucose 107 H (74-99) mg/dL Troponin I (0.000-0.034) ng/mL Total Protein 5.8 L (6.3-8.2) g/dL Urine Protein (Negative) Urine Bacteria (None) /hpf Hyaline Casts (0-2) /lpf Urine Mucus (None) /hpf Thrombosis Risk Factor Assmnt - Choose All That Apply Any of the Below Risk Factors Present?: Yes Each Factor Represents 1 point: Swollen legs (current) Other Risk Factors: Yes Each Risk Factor Represents 3 Points: Age 75 years or older Other congenital or acquired thrombophilia - If yes, enter type in comment: No Thrombosis Risk Factor Assessment Total Risk Factor Score: 4 Thrombosis Risk Factor Assessment Level: Moderate Risk
--- NOTE | 2020-03-07 13:30 | P.CRDCN ---
History of Present Illness Consult date: 03/07/20 History of present illness: CHIEF COMPLAINT: Shortness of breath HISTORY OF PRESENT ILLNESS: 84-year-old male with a history of atrial fibrillation, COPD, CHF, hypertension, hyperlipidemia, and obstructive sleep apnea who presented to the emergency room after being evaluated by his primary care physician for shortness of breath. Apparently the patient had gained 25 pounds since his last visit with his PCP. Patient follows outpatient with Dr. Borges. Patient was found to be in CHF and was started on IV Lasix. Patient exam ined this morning at the bedside. He continues to report shortness of breath but states it is slightly improved from yesterday. He denies chest pain or pressure. Patients INR was found to be greater than 10. Patient did receive a dose of vitamin K yesterday. He states his Coumadin dose was adjusted recently but he is not sure what he was previously taking. DIAGNOSTICS: EKG reveals atrial fibrillation Chest xray mild congestive heart failure. Moderate pleural effusions. Laboratory data: WBC 3.5. Hemoglobin 12.0. Platelet count 108. INR greater than 10. Sodium 141. Potassium 3.6. BUN 26. Creatinine 1.37. Troponin 0.128. 0.130. 0.132. BNP 37,300. Current home cardiac medications include Coumadin 5 mg daily, metoprolol 25 mg daily, Lasix 40 mg twice a day, Lipitor 40 mg daily Echocardiogram completed in January 2020 revealed EF 50-55%, mild aortic regurgitation, mild aortic stenosis, mild mitral stenosis, moderate tricuspid regurgitation and moderate pulmonary hypertension REVIEW OF SYSTEMS: CONSTITUTIONAL: Denies fever or chills. HEENT: Denies blurred vision, vision changes, or eye pain. Denies hemoptysis CARDIOVASCULAR: Denies chest pain, orthopnea, PND or palpitations RESPIRATORY: Reports shortness of breath. GASTROINTESTINAL: Denies abdominal pain. Denies nausea or vomiting. HEMATOLOGIC: Denies bleeding disorders. GENITOURINARY: Denies any blood in urine. SKIN: Denies pruitis. Denies rash. PHYSICAL EXAM: VITAL SIGNS: Reviewed. GENERAL: Well-developed in no acute distress. HEENT: Head is normocephalic. Pupils are equal, round. Sclerae anicteric. Mucous membranes of the mouth are moist. Neck supple. No JVD or thyromegaly LUNGS: Respirations even and unlabored. Lungs diminished with expiratory wheezing noted. HEART: Irregular rate and rhythm. S1 and S2 heard. ABDOMEN: Soft. Nontender. EXTREMITIES: Normal range of motion. No clubbing or cyanosis. Peripheral pulses intact. No lower extremity edema NEUROLOGIC: Awake and alert. Oriented x 3. ASSESSMENT: Acute exacerbation of chronic diastolic heart failure, EF 50-55% Elevated troponins, not suggestive of ACS, likely secondary to above Chronic persistent atrial fibrillation Coumadin coagulopathy, INR greater than 10 Hypertension Hyperlipidemia COPD Chronic kidney disease PLAN: Continue IV Lasix Monitor kidney function Daily weights Accurate I&O Additional Vitamin K ordered. Monitor INR Will transition patient to Eliquis when coagulopathy has resolved Further recommendations pending patient course Past Medical History Past Medical History: Atrial Fibrillation, COPD, GERD/Reflux, Hyperlipidemia, Hypertension, Osteoarthritis (OA), Sleep Apnea/CPAP/BIPAP, Thyroid Disorder Additional Past Medical History / Comment(s): NO CPAP. 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 History of Any Multi-Drug Resistant Organisms: None Reported Past Surgical History: Adenoidectomy, Cholecystectomy, Hernia Repair, Joint Replacement, Orthopedic Surgery, Tonsillectomy Additional Past Surgical History / Comment(s): TOTAL L KNEE 04/17/14 Past Anesthesia/Blood Transfusion Reactions: No Reported Reaction Past Psychological History: Depression Smoking Status: Former smoker Past Alcohol Use History: None Reported Additional Past Alcohol Use History / Comment(s): QUIT 15 YEARS (2004), SMOKED 62YR, 1 PPD. Past Drug Use History: None Reported - Past Family History Brother(s) Family Medical History: Cancer Additional Family Medical History / Comment(s): BROTHER OF LUNG CANCER. HE WAS A SMOKER. Son(s) Family Medical History: Cancer Father Family Medical History: No Reported History Additional Family Medical History / Comment(s): FATHER OF 89 YRS. Medications and Allergies Home Medications Medication Instructions Recorded Confirmed Type Atorvastatin [Lipitor] 40 mg PO HS 04/12/14 03/06/20 History Levothyroxine Sodium [Synthroid] 25 mcg PO DAILY 04/12/14 03/06/20 History Warfarin [Coumadin] 5 mg PO HS 04/12/14 03/06/20 History Fluticasone Nasal [place] [Flonase 1 spray EA NOSTRIL DAILY 03/30/16 03/06/20 History Nasal [place]] Budesonide [Pulmicort Flexhaler] 1 puff INHALATION RT-BID 01/20/20 03/06/20 History Docusate [Colace] 100 mg PO BID 01/20/20 03/06/20 History Furosemide [Lasix] 40 mg PO BID 01/20/20 03/06/20 History Metoprolol Succinate (ER) [Toprol 25 mg PO DAILY 01/20/20 03/06/20 History XL] Mirtazapine [Remeron] 15 mg PO HS 01/20/20 03/06/20 History Potassium Chloride ER [K-Dur 20] 20 meq PO DAILY 01/20/20 03/06/20 History Umeclidinium Brm/Vilanterol Tr 1 puff INHALATION RT-DAILY 01/20/20 03/06/20 History [Anoro Ellipta 62.5-25 Mcg INH] Nystatin 100,000 Unit/gm Powd 1 applic TOPICAL TID #100 gm 01/25/20 03/06/20 Rx [Mycostatin Powder] Apixaban [Eliquis] 5 mg PO BID #60 tab 03/07/20 Rx Allergies Allergy/AdvReac Type Severity Reaction Status Date / Time No Known Allergies Allergy Verified 03/06/20 17:56 Physical Exam Vitals: Vital Signs Temp Pulse Pulse Resp BP BP Pulse Ox 03/07/20 12:00 81 20 105/49 94 L 03/07/20 11:55 82 03/07/20 11:46 84 03/07/20 08:30 86 03/07/20 08:20 84 03/07/20 08:15 84 03/07/20 08:05 87 03/07/20 08:00 94 22 110/67 92 L 03/07/20 04:00 68 20 118/57 92 L 03/06/20 23:38 95 20 03/06/20 23:31 98.1 F 95 20 104/60 93 L 03/06/20 20:14 97.9 F 78 18 101/69 98 03/06/20 20:11 98.2 F 85 22 117/75 94 L 03/06/20 18:45 95 20 109/74 100 03/06/20 18:00 81 18 98/74 92 L 03/06/20 16:14 97.4 F L 68 20 105/61 93 L Intake and Output 03/06/20 03/07/20 03/07/20 22:59 06:59 14:59 Output Total 700 300 Balance -700 -300 Output: Urine 700 300 Other: Voiding Method Toilet Weight 82.554 kg 85.5 kg Results 03/07/20 05:35 03/07/20 05:35 Cardiac Enzymes 03/06/20 03/06/20 03/06/20 Range/Units 18:00 18:00 20:28 AST 46 (17-59) U/L Troponin I 0.128 H* 0.130 H* (0.000-0.034) ng/mL 03/07/20 03/07/20 Range/Units 00:10 05:35 AST 44 (17-59) U/L Troponin I 0.132 H* (0.000-0.034) ng/mL Coagulation 03/06/20 03/07/20 Range/Units 18:00 05:35 PT >130.0 H 123.7 H (9.0-12.0) sec APTT 52.6 H 54.6 H (22.0-30.0) sec CBC 03/06/20 03/07/20 Range/Units 18:00 05:35 WBC 3.4 L 3.5 L (3.8-10.6) k/uL RBC 4.24 L 4.03 L (4.30-5.90) m/uL Hgb 12.6 L 12.0 L (13.0-17.5) gm/dL Hct 40.7 38.9 L (39.0-53.0) % Plt Count 129 L 108 L (150-450) k/uL Comprehensive Metabolic Panel 03/06/20 03/07/20 Range/Units 18:00 05:35 Sodium 140 141 (137-145) mmol/L Potassium 3.9 3.6 (3.5-5.1) mmol/L Chloride 100 101 (98-107) mmol/L Carbon Dioxide 37 H 37 H (22-30) mmol/L BUN 29 H 26 H (9-20) mg/dL Creatinine 1.38 H 1.37 H (0.66-1.25) mg/dL Glucose 104 H 107 H (74-99) mg/dL Calcium 9.0 8.8 (8.4-10.2) mg/dL AST 46 44 (17-59) U/L ALT 24 24 (4-49) U/L Alkaline Phosphatase 86 86 (38-126) U/L Total Protein 6.0 L 5.8 L (6.3-8.2) g/dL Albumin 3.5 3.5 (3.5-5.0) g/dL Current Medications Generic Name Dose Route Start Last Admin Trade Name Freq PRN Reason Stop Dose Admin Atorvastatin Calcium 40 mg 03/06/20 21:00 03/06/20 22:53 Atorvastatin 40 Mg Tab PO 40 mg HS CARMEL Administration Docusate Sodium 100 mg 03/06/20 21:00 03/07/20 08:46 Docusate 100 Mg Cap PO 100 mg BID CARMEL Administration Fluticasone Propionate 1 puff 03/07/20 08:00 03/07/20 08:05 Fluticasone 110 Mcg Inhaler INHALATION 1 puff RT-BID CARMEL Administration Fluticasone Propionate 1 spray 03/07/20 09:00 03/07/20 08:45 Fluticasone 50mcg/[place] Nasal 16gm EA NOSTRIL 1 spray DAILY CARMEL Administration Formoterol Fumarate 20 mcg 03/07/20 08:00 03/07/20 08:04 Formoterol Fumarate 20 Mcg/2 Ml Nebu INHALATION 20 mcg RT-BID CARMEL Administration Furosemide 40 mg 03/06/20 20:00 03/07/20 12:16 Furosemide 10 Mg/Ml 4 Ml Vial IV 40 mg Q8H CARMEL Administration Ipratropium [place] 0.5 mg 03/07/20 08:00 03/07/20 11:46 Ipratropium 0.5 Mg/2.5 Ml Nebu INHALATION 0.5 mg RT-QID CARMEL Administration Levothyroxine Sodium 25 mcg 03/07/20 06:30 03/07/20 06:30 Levothyroxine 25 Mcg Tab PO 25 mcg 0630 CARMEL Administration Melatonin 3 mg 03/06/20 22:45 03/06/20 22:55 Melatonin 3 Mg Tablet PO 3 mg HS CARMEL Administration Metoprolol Succinate 25 mg 03/07/20 09:00 03/07/20 08:46 Metoprolol Succinate (Er) 25 Mg Tab.Er.24h PO 25 mg DAILY CARMEL Administration Mirtazapine 15 mg 03/06/20 21:00 03/06/20 22:53 Mirtazapine 15 Mg Tab PO 15 mg HS CARMEL Administration Nitroglycerin 1 inch 03/06/20 22:00 03/07/20 12:16 Nitroglycerin Oint 1 Inch/Gm Packet TOPICAL 1 inch QID CARMEL Administration Nystatin 1 applic 03/06/20 22:00 03/07/20 08:42 Nystatin 100,000 Unit/Gm Powd 15 Gm TOPICAL 1 applic TID CARMEL Administration Pantoprazole Sodium 40 mg 03/07/20 07:30 03/07/20 06:30 Pantoprazole 40 Mg Tablet PO 40 mg AC-BRKFST CARMEL Administration Potassium Chloride 20 meq 03/07/20 09:00 03/07/20 08:46 Potassium Chloride Er 20 Meq Tab.Er PO 20 meq DAILY CARMEL Administration Sodium Chloride 10 ml 03/06/20 21:00 03/07/20 08:46 Sodium Chloride 0.9% Flush 10 Ml Syringe IV 10 ml BID CARMEL Administration Intake and Output 03/06/20 03/07/20 03/07/20 22:59 06:59 14:59 Output Total 700 300 Balance -700 -300 Output: Urine 700 300 Other: Voiding Method Toilet Weight 82.554 kg 85.5 kg 03/07/20 05:35 03/07/20 05:35 Assessment and Plan Plan: Nurse practitioner note has been reviewed by physician. Signing provider agrees with the documented findings, assessment, and plan of care.
[2020-03-07 14:02] VITALS: BMI 27.8
[2020-03-07 18:45] LABS: Prothrombin Time 29.2 sec (9.0-12.0)
[2020-03-07] MEDS: MELATONIN 3 MG TABLET PO SCH (20:34)
[2020-03-07] MEDS: ATORVASTATIN 40 MG TAB PO SCH (20:34)
[2020-03-07] MEDS: MIRTAZAPINE 15 MG TAB PO SCH (20:34)
[2020-03-08] MEDS: FUROSEMIDE 10 MG/ML 4 ML VIAL IV SCH (04:11)
[2020-03-08] MEDS: PANTOPRAZOLE 40 MG TABLET PO SCH (06:58)
[2020-03-08] MEDS: LEVOTHYROXINE 25 MCG TAB PO SCH (06:58)
[2020-03-08] MEDS: NYSTATIN 100,000 UNIT/GM POWD 15 GM TOPICAL SCH ×3 (08:10→23:00)
[2020-03-08] MEDS: FLUTICASONE 50MCG/SPRAY NASAL 16GM EA NOSTRIL SCH (08:10)
[2020-03-08] MEDS: POTASSIUM CHLORIDE ER 20 MEQ TAB.ER PO SCH (08:11)
[2020-03-08] MEDS: NITROGLYCERIN OINT 1 INCH/GM PACKET TOPICAL SCH ×4 (08:11→23:00)
[2020-03-08] MEDS: DOCUSATE 100 MG CAP PO SCH ×2 (08:11→20:22)
[2020-03-08] MEDS: METOPROLOL SUCCINATE (ER) 25 MG TAB.ER.24H PO SCH (08:11)
[2020-03-08] MEDS: FORMOTEROL FUMARATE 20 MCG/2 ML NEBU INHALATION SCH ×2 (08:27→19:46)
[2020-03-08] MEDS: IPRATROPIUM 0.5 MG/2.5 ML NEBU INHALATION SCH ×4 (08:27→19:46)
[2020-03-08] MEDS: FLUTICASONE 110 MCG INHALER INHALATION SCH ×2 (08:28→19:46)
[2020-03-08 10:14] LABS: Potassium 3.7 mmol/L (3.5-5.1)
[2020-03-08 10:15] LABS: INR 1.7 (<1.2); Prothrombin Time 16.4 sec (9.0-12.0)
--- NOTE | 2020-03-08 12:13 | P.PN ---
Subjective Progress Note Date: 03/08/20 CHIEF COMPLAINT: Shortness of breath HISTORY OF PRESENT ILLNESS: Patient examined this morning at the bedside. Patient clinically appears significantly improved today. He denies shortness of breath. Denies chest pain. Patient received vitamin K yesterday. INR is 1.7 today. PHYSICAL EXAM: VITAL SIGNS: Reviewed. GENERAL: Well-developed in no acute distress. HEENT: Head is normocephalic. Pupils are equal, round. Sclerae anicteric. Mucous membranes of the mouth are moist. Neck supple. No JVD or thyromegaly LUNGS: Respirations even and unlabored. Lungs diminished with expiratory wheezing noted. HEART: Irregular rate and rhythm. S1 and S2 heard. ABDOMEN: Soft. Nontender. EXTREMITIES: Normal range of motion. No clubbing or cyanosis. Peripheral pulses intact. No lower extremity edema NEUROLOGIC: Awake and alert. Oriented x 3. ASSESSMENT: Acute exacerbation of chronic diastolic heart failure, EF 50-55% Elevated troponins, not suggestive of ACS, likely secondary to above Chronic persistent atrial fibrillation Coumadin coagulopathy, INR greater than 10 Hypertension Hyperlipidemia COPD Chronic kidney disease PLAN: Discontinue IV Lasix. Resume oral Lasix 40 mg by mouth twice a day Monitor kidney function Daily weights Accurate I&O Coagulopathy has resolved. Begin Eliquis 5 mg BID Nurse practitioner note has been reviewed by physician. Signing provider agrees with the documented findings, assessment, and plan of care. Objective - Vital Signs Vital signs: Vital Signs Temp 96.1 F L 03/08/20 08:00 Pulse 76 03/08/20 12:06 Resp 20 03/08/20 08:00 BP 128/63 03/08/20 08:00 Pulse Ox 93 L 03/08/20 08:17 Intake & Output 03/07/20 03/08/20 03/08/20 18:59 06:59 18:59 Intake Total 480 120 Output Total 300 350 Balance 180 -230 Weight 85.5 kg 76 kg Intake: Oral 480 120 Output: Urine 300 350 Other: Voiding Method Toilet # Voids 2 - Labs CBC & Chem 7: 03/07/20 05:35 03/08/20 08:31 Labs: Abnormal Lab Results - Last 24 Hours (Table) 03/07/20 03/08/20 03/08/20 Range/Units 18:12 08:31 08:31 PT 29.2 H 16.4 H (9.0-12.0) sec INR 3.0 H 1.7 H (<1.2) Chloride 96 L (98-107) mmol/L Carbon Dioxide 38 H (22-30) mmol/L BUN 25 H (9-20) mg/dL Creatinine 1.50 H (0.66-1.25) mg/dL Glucose 113 H (74-99) mg/dL
[2020-03-08] MEDS: APIXABAN 5 MG TAB PO SCH ×2 (12:34→20:23)
--- NOTE | 2020-03-08 13:00 | P.PN ---
Subjective Progress Note Date: 03/08/20 HISTORY OF PRESENT ILLNESS This is an 84-year-old male patient of Dr. Hsu and Dr. Elmer Borges with past medical history of COPD, chronic diastolic heart failure with EF of 50-55%, mild aortic stenosis, mild mitral stenosis, moderate tricuspid regurgitation and moderate pulmonary hypertension, persistent atrial fibrillation on chronic Coumadin, gastroesophageal reflux disease, hypertension, hyperlipidemia, generalized osteoarthritis, obstructive sleep apnea with CPAP, hypothyroidism, chronic kidney disease stage III. Patient was seen and Dr. Ellis's office yesterday and there was concern about weight gain, weakness that is worsening and concern for heart failure. Patient presented to [facility] emergency center, afebrile, heart rate 60, blood pressure 105/61, pulse ox 93% on oxygen. EKG was atrial fibrillation. Chest x-ray mild heart failure, moderate pleural effusions are increased compared to old exam. WBC 3.4, hemoglobin 12.6, platelet count 129. Coumadin greater than 10. BUN 39 creatinine 1.38 with CO2 37. Troponin 0.128, 0.130, 0.132. Patient admitted to the cardiac stepdown unit and cardiology consult requested. Patient is status post vitamin K 5 mg yesterday and 10 mg today. Coumadin has been placed on hold. Patient started on IV Lasix 40 mg every 8 hours. 03/08: Patient is feeling better from yesterday. Shortness of breath is improving. Repeat blood work reveals INR is 1.7. BUN 25 and creatinine 1.5, CO2 is 38. Patient has been afebrile, heart rate 76, blood pressure 110/67, pulse ox 95% on 2 L nasal cannula. Cardiology has changed his IV Lasix to oral and started patient on eliquis. Discharge plan is for [facility] on Wednesday. REVIEW OF SYSTEMS Constitutional: No fever, no chills, no night sweats. No weight change. Reports weakness, reports fatigue. No daytime sleepiness. EENT: No headache. No blurred vision or double vision, no loss of vision. No dizziness. No nasal drainage or congestion. No epistaxis. No sore throat. Lungs: Reports shortness of breath-improved, cough, no sputum production. No wheezing. Cardiovascular: No chest pain, reports lower extremity edema. No palpitations. No paroxysmal nocturnal dyspnea. Reports orthopnea. No lightheadedness or dizziness. No syncopal episodes. Abdominal: No abdominal pain. No nausea, vomiting. No diarrhea. No constipation. No bloody or tarry stools.. No loss of appetite. Genitourinary: No dysuria, increased frequency, urgency. No urinary retention. Musculoskeletal: No myalgias. Reports muscle weakness, no gait dysfunction, no frequent falls. No back pain. No neck pain. Integumentary: No wounds, no lesions. No rash or pruritus. No unusual bruising. No change in hair or nails. Neurologic: No aphasia. No facial droop. No change in mentation. No head injury. No headache. No paralysis. No paresthesia. Psychiatric: No depression. No anxiety. No mood swings. Endocrine: No abnormal blood sugars. No weight change. No excessive sweating or thirst. No cold intolerance. PHYSICAL EXAMINATION Gen: This is an 84-year-old male. Patient is sitting up in bed appears to be comfortable and in no acute distress. HEENT: Head is atraumatic, normocephalic. Pupils equal, round. Sclerae is anicteric. NECK: Supple. No JVD. No lymphadenopathy. No thyromegaly. LUNGS: Clear to auscultation. No wheezes or rhonchi. No intercostal retractions. HEART: Irregularly irregular ate and rhythm. No murmur. 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 ABDOMEN: Soft. Bowel sounds are present. No masses. No tenderness. EXTREMITIES: no pedal edema. No calf tenderness. NEUROLOGICAL: Patient is awake, alert and oriented x3. Cranial nerves 2 through 12 are grossly intact. ASSESSMENT AND PLAN 1. Acute dyspnea, generalized weakness and possible weight gain secondary to acute on chronic diastolic heart failure. Continue oxygen, consult with car diology appreciated. IV Lasix changed to oral. Continue I&O, daily weights, monitor renal function and electrolytes. Continue Toprol-XL 25 mg daily. 2. Hypercoagulopathy secondary to Coumadin. Coumadin discontinued. Patient is status post vitamin K 2 doses. Patient started on eliquis. 3. Elevated troponins, ruled out acute coronary syndrome. Cardiology consult. 4. COPD without exacerbation. Continue Perforomist twice daily, Atrovent 4 times daily. 5. Hypertrophic cardiomyopathy. Continue Lasix. 6. Chronic kidney disease stage III. Monitor renal function daily. 10. Persistent Atrial fibrillation. Hold Coumadin. Continue Toprol-XL 25 mg daily. Patient would benefit from use of eliquis versus resuming Coumadin. 11. Hypertension. Metoprolol 25 mg by mouth at bedtime 12. Hyperlipidemia. Continue atorvastatin 40 mg by mouth at bedtime 13. Obstructive sleep apnea. Continue to use CPAP machine 14. Hypothyroidism. Continue levothyroxine 25mcg daily 15. Chronic thrombocytopenia. 16. Debility. Consult PT, OT, social work for subacute rehab 17. DVT prophylaxis. Hypercoagulopathy state. No need for heparin subcu 18. GI prophylaxis. Protonix 40 mg by mouth at bedtime 19. Recurrent depression. Continue Remeron. Patient will be admitted to the hospital for a minimum of 2 night stay. CODE STATUS: No code Discharge plan: Subacute rehab at [facility] on Wednesday. Impression and plan of care have been directed as dictated by the signing physician. Kalie Alejo nurse practitioner acting as scribe for signing physician. Objective - Vital Signs Vital signs: Vital Signs Temp 96.1 F L 03/08/20 08:00 Pulse 80 03/08/20 08:53 Resp 20 03/08/20 08:00 BP 128/63 03/08/20 08:00 Pulse Ox 93 L 03/08/20 08:17 Intake & Output 03/07/20 03/08/20 03/08/20 18:59 06:59 18:59 Intake Total 480 120 Output Total 300 350 Balance 180 -230 Weight 85.5 kg 76 kg Intake: Oral 480 120 Output: Urine 300 350 Other: Voiding Method Toilet # Voids 2 - Labs CBC & Chem 7: 03/07/20 05:35 03/08/20 08:31 Labs: Abnormal Lab Results - Last 24 Hours (Table) 03/07/20 Range/Units 18:12 PT 29.2 H (9.0-12.0) sec INR 3.0 H (<1.2)
--- NOTE | 2020-03-08 13:05 | P.DS ---
Providers Date of admission: 03/06/20 19:55 Expected date of discharge: 03/08/20 Attending physician: Asif Obrien Consults: 03/06/20 19:53 Consult Physician Routine Consulting Provider: Aaron Roblero Consult Reason/Comments: chf Do you want consulting provider notified?: Yes Primary care physician: Dutch Hsu MD Hospital Course: HISTORY OF PRESENT ILLNESS This is an 84-year-old male patient of Dr. Hsu and Dr. Elmer Borges with past medical history of COPD, chronic diastolic heart failure with EF of 50-55%, mild aortic stenosis, mild mitral stenosis, moderate tricuspid regurgitation and moderate pulmonary hypertension, persistent atrial fibrillation on chronic Coumadin, gastroesophageal reflux disease, hypertension, hyperlipidemia, generalized osteoarthritis, obstructive sleep apnea with CPAP, hypothyroidism, chronic kidney disease stage III. Patient was seen and Dr. Ellis's office yesterday and there was concern about weight gain, weakness that is worsening and concern for heart failure. Patient presented to [facility] emergency center, afebrile, heart rate 60, blood pressure 105/61, pulse ox 93% on oxygen. EKG was atrial fibrillation. Chest x-ray mild heart failure, moderate pleural effusions are increased compared to old exam. WBC 3.4, hemoglobin 12.6, platelet count 129. Coumadin greater than 10. BUN 39 creatinine 1.38 with CO2 37. Troponin 0.128, 0.130, 0.132. Patient admitted to the cardiac stepdown unit and cardiology consult requested. Patient is status post vitamin K 5 mg yesterday and 10 mg today. Coumadin has been placed on hold. Patient started on IV Lasix 40 mg every 8 hours. 03/08: Patient is feeling better from yesterday. Shortness of breath is improving. Repeat blood work reveals INR is 1.7. BUN 25 and creatinine 1.5, CO2 is 38. Patient has been afebrile, heart rate 76, blood pressure 110/67, pulse ox 95% on 2 L nasal cannula. Cardiology has changed his IV Lasix to oral and started patient on eliquis. Discharge plan is for [facility] on Wednesday. Patient scheduled for discharge to [facility] on Wednesday once evaluated by Dr. Villalba. ASSESSMENT AND PLAN 1. Acute dyspnea, generalized weakness and possible weight gain secondary to acute on chronic diastolic heart failure. 2. Hypercoagulopathy secondary to Coumadin. 3. Elevated troponins, ruled out acute coronary syndrome. 4. COPD without exacerbation. 5. Hypertrophic cardiomyopathy. 6. Chronic kidney disease stage III. 10. Persistent Atrial fibrillation. 11. Hypertension. 12. Hyperlipidemia. 13. Obstructive sleep apnea. 14. Hypothyroidism. 15. Chronic thrombocytopenia. 16. Debility. 17. Recurrent depression. Continue Remeron. Discharge plan: Subacute rehab at [facility] on Wednesday. Impression and plan of care have been directed as dictated by the signing physician. Kalie Alejo nurse practitioner acting as scribe for signing physician. Patient Condition at Discharge: Serious Plan - Discharge Summary Discharge Rx Participant: No New Discharge Prescriptions: New Apixaban [Eliquis] 5 mg PO BID #60 tab Melatonin 3 mg PO HS tablet Pantoprazole [Protonix] 40 mg PO AC-BRKFST tablet. Continue Atorvastatin [Lipitor] 40 mg PO HS Levothyroxine Sodium [Synthroid] 25 mcg PO DAILY Fluticasone Nasal [place] [Flonase Nasal [place]] 1 spray EA NOSTRIL DAILY Potassium Chloride ER [K-Dur 20] 20 meq PO DAILY Mirtazapine [Remeron] 15 mg PO HS Budesonide [Pulmicort Flexhaler] 1 puff INHALATION RT-BID Metoprolol Succinate (ER) [Toprol XL] 25 mg PO DAILY Furosemide [Lasix] 40 mg PO BID Umeclidinium Brm/Vilanterol Tr [Anoro Ellipta 62.5-25 Mcg INH] 1 puff INHALATION RT-DAILY Docusate [Colace] 100 mg PO BID Nystatin 100,000 Unit/gm Powd [Mycostatin Powder] 1 applic TOPICAL TID #100 gm Discontinued Warfarin [Coumadin] 5 mg PO HS Discharge Medication List Atorvastatin [Lipitor] 40 mg PO HS 04/12/14 [History] Levothyroxine Sodium [Synthroid] 25 mcg PO DAILY 04/12/14 [History] Fluticasone Nasal [place] [Flonase Nasal [place]] 1 spray EA NOSTRIL DAILY 03/30/16 [History] Budesonide [Pulmicort Flexhaler] 1 puff INHALATION RT-BID 01/20/20 [History] Docusate [Colace] 100 mg PO BID 01/20/20 [History] Furosemide [Lasix] 40 mg PO BID 01/20/20 [History] Metoprolol Succinate (ER) [Toprol XL] 25 mg PO DAILY 01/20/20 [History] Mirtazapine [Remeron] 15 mg PO HS 01/20/20 [History] Potassium Chloride ER [K-Dur 20] 20 meq PO DAILY 01/20/20 [History] Umeclidinium Brm/Vilanterol Tr [Anoro Ellipta 62.5-25 Mcg INH] 1 puff INHALATION RT-DAILY 01/20/20 [History] Nystatin 100,000 Unit/gm Powd [Mycostatin Powder] 1 applic TOPICAL TID #100 gm 01/25/20 [Rx] Apixaban [Eliquis] 5 mg PO BID #60 tab 03/07/20 [Rx] Melatonin 3 mg PO HS tablet 03/08/20 [Rx] Pantoprazole [Protonix] 40 mg PO AC-BRKFST tablet. 03/08/20 [Rx] Follow up Appointment(s)/Referral(s): Luis Borges MD [STAFF PHYSICIAN] - 1 Week Dutch Hsu MD [Primary Care Provider] - 1 Week Patient Instructions/Handouts: Heart Failure (DC) Activity/Diet/Wound Care/Special Instructions: Pts copay for Eliquis is $2/mo, 1st month filled in [facility] pharmacy [facility] Discharge Disposition: TRANSFER TO SNF/ECF
[2020-03-08] MEDS: FUROSEMIDE 40 MG TAB PO SCH (17:07)
[2020-03-08] MEDS: ATORVASTATIN 40 MG TAB PO SCH (20:22)
[2020-03-08] MEDS: MIRTAZAPINE 15 MG TAB PO SCH (20:23)
[2020-03-08] MEDS: MELATONIN 3 MG TABLET PO SCH (20:23)
[2020-03-08 23:37] VITALS: RESP 20; TEMP 98.1
[2020-03-09] MEDS: PANTOPRAZOLE 40 MG TABLET PO SCH (06:43)
[2020-03-09] MEDS: LEVOTHYROXINE 25 MCG TAB PO SCH (06:43)
[2020-03-09] MEDS: IPRATROPIUM 0.5 MG/2.5 ML NEBU INHALATION SCH ×2 (08:15→12:02)
[2020-03-09] MEDS: FLUTICASONE 110 MCG INHALER INHALATION SCH (08:15)
[2020-03-09] MEDS: FORMOTEROL FUMARATE 20 MCG/2 ML NEBU INHALATION SCH (08:15)
[2020-03-09 08:33] LABS: Calcium 8.8 mg/dL (8.4-10.2); Potassium 3.4 mmol/L (3.5-5.1)
[2020-03-09] MEDS: FUROSEMIDE 40 MG TAB PO SCH (09:11)
[2020-03-09] MEDS: METOPROLOL SUCCINATE (ER) 25 MG TAB.ER.24H PO SCH (09:11)
[2020-03-09] MEDS: APIXABAN 5 MG TAB PO SCH (09:11)
[2020-03-09] MEDS: DOCUSATE 100 MG CAP PO SCH (09:11)
[2020-03-09] MEDS: NYSTATIN 100,000 UNIT/GM POWD 15 GM TOPICAL SCH (09:11)
[2020-03-09] MEDS: POTASSIUM CHLORIDE ER 20 MEQ TAB.ER PO SCH (09:11)
[2020-03-09] MEDS: FLUTICASONE 50MCG/SPRAY NASAL 16GM EA NOSTRIL SCH (09:11)
[2020-03-09 09:19] VITALS: BP 96/57
--- NOTE | 2020-03-09 11:35 | P.PN ---
Subjective Progress Note Date: 03/09/20 This is an 84-year-old male patient of Dr. Hsu and Dr. Elmer Bogres with past medical history of COPD, chronic diastolic heart failure with EF of 50-55%, mild aortic stenosis, mild mitral stenosis, moderate tricuspid regurgitation and moderate pulmonary hypertension, persistent atrial fibrillation on chronic Coumadin, gastroesophageal reflux disease, hypertension, hyperlipidemia, generalized osteoarthritis, obstructive sleep apnea with CPAP, hypothyroidism, chronic kidney disease stage III. Patient was seen and Dr. Ellis's office yesterday and there was concern about weight gain, weakness that is worsening and concern for heart failure. Patient presented to [facility] emergency center, afebrile, heart rate 60, blood pressure 105/61, pulse ox 93% on oxygen. EKG was atrial fibrillation. Chest x-ray mild heart failure, moderate pleural effusions are increased compared to old exam. WBC 3.4, hemoglobin 12.6, platelet count 129. Coumadin greater than 10. BUN 39 creatinine 1.38 with CO2 37. Troponin 0.128, 0.130, 0.132. Patient admitted to the cardiac stepdown unit and cardiology consult requested. Patient is status post vitamin K 5 mg yesterday and 10 mg today. Coumadin has been placed on hold. Patient started on IV Lasix 40 mg every 8 hours. 03/08: Patient is feeling better from yesterday. Shortness of breath is improving. Repeat blood work reveals INR is 1.7. BUN 25 and creatinine 1.5, CO2 is 38. Patient has been afebrile, heart rate 76, blood pressure 110/67, pulse ox 95% on 2 L nasal cannula. Cardiology has changed his IV Lasix to oral and started patient on eliquis. Discharge plan is for [facility] on Wednesday. 03/09: Discharge summary was completed yesterday by Kalie Alejo. Patient found sitting up in bed with no acute distress or complaints. Patient states his shortness of breath is continuing to improve. Patient has been afebrile. Heart rate 71, respirations 20, blood pressure 96/57. REVIEW OF SYSTEMS Constitutional: No fever, no chills, no night sweats. No weight change. Reports weakness, reports fatigue. No daytime sleepiness. EENT: No headache. No blurred vision or double vision, no loss of vision. No dizziness. No nasal drainage or congestion. No epistaxis. No sore throat. Lungs: Reports shortness of breath-improved, cough, no sputum production. No wheezing. Cardiovascular: No chest pain, reports lower extremity edema. No palpitations. No paroxysmal nocturnal dyspnea. Reports orthopnea. No lightheadedness or dizziness. No syncopal episodes. Abdominal: No abdominal pain. No nausea, vomiting. No diarrhea. No constipation. No bloody or tarry stools.. No loss of appetite. Genitourinary: No dysuria, increased frequency, urgency. No urinary retention. Musculoskeletal: No myalgias. Reports muscle weakness, no gait dysfunction, no frequent falls. No back pain. No neck pain. Integumentary: No wounds, no lesions. No rash or pruritus. No unusual bruising. No change in hair or nails. Neurologic: No aphasia. No facial droop. No change in mentation. No head injury. No headache. No paralysis. No paresthesia. Psychiatric: No depression. No anxiety. No mood swings. Endocrine: No abnormal blood sugars. No weight change. No excessive sweating or thirst. No cold intolerance. PHYSICAL EXAMINATION Gen: This is an 84-year-old male. Patient is sitting up in bed appears to be comfortable and in no acute distress. HEENT: Head is atraumatic, normocephalic. Pupils equal, round. Sclerae is anicteric. NECK: Supple. No JVD. No lymphadenopathy. No thyromegaly. LUNGS: Clear to auscultation. No wheezes or rhonchi. No intercostal retractions. HEART: Irregularly irregular ate and rhythm. No murmur. 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 ABDOMEN: Soft. Bowel sounds are present. No masses. No tenderness. EXTREMITIES: no pedal edema. No calf tenderness. NEUROLOGICAL: Patient is awake, alert and oriented x3. Cranial nerves 2 through 12 are grossly intact. ASSESSMENT AND PLAN 1. Acute dyspnea, generalized weakness and possible weight gain secondary to acute on chronic diastolic heart failure. Continue oxygen, consult with cardiology appreciated. IV Lasix changed to oral. Continue I&O, daily weights, monitor renal function and electrolytes. Continue Toprol-XL 25 mg daily. 2. Hypercoagulopathy secondary to Coumadin. Coumadin discontinued. Patient is status post vitamin K 2 doses. Patient started on eliquis. 3. Elevated troponins, ruled out acute coronary syndrome. Cardiology consult. 4. COPD without exacerbation. Continue Perforomist twice daily, Atrovent 4 times daily. 5. Hypertrophic cardiomyopathy. Continue Lasix. 6. Chronic kidney disease stage III. Monitor renal function daily. 10. Persistent Atrial fibrillation. Hold Coumadin. Continue Toprol-XL 25 mg daily. Patient would benefit from use of eliquis versus resuming Coumadin. 11. Hypertension. Metoprolol 25 mg by mouth at bedtime 12. Hyperlipidemia. Continue atorvastatin 40 mg by mouth at bedtime 13. Obstructive sleep apnea. Continue to use CPAP machine 14. Hypothyroidism. Continue levothyroxine 25mcg daily 15. Chronic thrombocytopenia. 16. Debility. Consult PT, OT, social work for subacute rehab 17. DVT prophylaxis. Hypercoagulopathy state. No need for heparin subcu 18. GI prophylaxis. Protonix 40 mg by mouth at bedtime 19. Recurrent depression. Continue Remeron. Patient will be admitted to the hospital for a minimum of 2 night stay. CODE STATUS: No code Discharge plan: Subacute rehab at [facility] on today Impression and plan of care have been directed as dictated by the signing physician. Augusta Joseph nurse practitioner acting as scribe for signing physician. Objective - Vital Signs Vital signs: Vital Signs Temp 98.1 F 03/08/20 23:34 Pulse 88 03/09/20 08:30 Resp 20 03/09/20 08:00 BP 96/57 03/09/20 08:00 Pulse Ox 99 03/09/20 08:00 Intake & Output 03/08/20 03/09/20 03/09/20 18:59 06:59 18:59 Intake Total 465 480 120 Output Total 550 600 Balance -85 -120 120 Weight 75.3 kg Intake: Oral 465 480 120 Output: Urine 550 600 Other: Voiding Method Toilet # Voids 1 - Labs CBC & Chem 7: 03/07/20 05:35 03/09/20 07:15 Labs: Abnormal Lab Results - Last 24 Hours (Table) 03/09/20 Range/Units 07:15 Potassium 3.4 L (3.5-5.1) mmol/L Chloride 94 L (98-107) mmol/L Carbon Dioxide 38 H (22-30) mmol/L BUN 26 H (9-20) mg/dL Creatinine 1.53 H (0.66-1.25) mg/dL Glucose 102 H (74-99) mg/dL
[2020-03-09 12:05] VITALS: PULSE 80
--- NOTE | 2020-03-09 12:19 | P.PN ---
Subjective This is a pleasant 84-year-old male past medical history significant for diastolic heart failure, chronic persistent atrial fibrillation, hypertension, dyslipidemia, COPD and chronic kidney disease. He is seen and examined sitting up in no acute distress. He continues to feel short of breath. Blood pressure 96/57 heart rate 88 afebrile maintaining oxygen saturation on nasal cannula. Laboratory data reviewed, sodium 139, potassium 3.4, creatinine 1.53. Currently maintained on Eliquis 5 mg twice a day, atorvastatin 40 mg at bedtime, Lasix 40 mg twice a day, Toprol 25 mg daily and oral potassium daily. GENERAL: Well-appearing, well-nourished and in no acute distress. NECK: Supple without JVD or thyromegaly. LUNGS: Breath sounds clear to auscultation bilaterally. Respiration equal and unlabored. No wheezes, rales or rhonchi. HEART: Irregular rate and rhythm with systolic ejection murmur at the left sternal border, no rubs or gallops. S1 and S2 heard. EXTREMITIES: Normal range of motion, trace bilateral lower extremity edema. No clubbing or cyanosis. Peripheral pulses intact. ASSESSMENT Acute on chronic diastolic heart failure Elevated troponins not suggestive of acute coronary syndrome. Likely secondary to heart failure exacerbation Chronic persistent atrial fibrillation Supratherapeutic INR secondary to Coumadin coagulopathy Hypertension Dyslipidemia COPD Chronic kidney disease PLAN Continue current medical regimen. Stable for transfer to subacute rehab her primary care team. Nurse Practitioner note has been reviewed, I agree with a documented findings and plan of care. Patient was seen and examined. Objective - Vital Signs Vital signs: Vital Signs Temp 98.1 F 03/08/20 23:34 Pulse 80 03/09/20 12:12 Resp 20 03/09/20 08:00 BP 96/57 03/09/20 08:00 Pulse Ox 99 03/09/20 08:00 Intake & Output 03/08/20 03/09/20 03/09/20 18:59 06:59 18:59 Intake Total 465 480 120 Output Total 550 600 Balance -85 -120 120 Weight 75.3 kg Intake: Oral 465 480 120 Output: Urine 550 600 Other: Voiding Method Toilet # Voids 1 0 - Labs CBC & Chem 7: 03/07/20 05:35 03/09/20 07:15 Labs: Abnormal Lab Results - Last 24 Hours (Table) 03/09/20 Range/Units 07:15 Potassium 3.4 L (3.5-5.1) mmol/L Chloride 94 L (98-107) mmol/L Carbon Dioxide 38 H (22-30) mmol/L BUN 26 H (9-20) mg/dL Creatinine 1.53 H (0.66-1.25) mg/dL Glucose 102 H (74-99) mg/dL
== END 2020-03-09 13:04 | DRG 291 ==
LOC: EC 16:12 → 3SCARD 19:55
PROVIDERS: ADMIT Internal Medicine Geriatric Medicine; ATTEND Internal Medicine Geriatric Medicine
DX: I13.0 Hypertensive heart and chronic kidney disease with heart failure and stage 1 through stage 4 chronic kidney disease, or unspecified chronic kidney disease (principal); I50.33 Acute on chronic diastolic (congestive) heart failure; I48.19 Other persistent atrial fibrillation; F33.9 Major depressive disorder, recurrent, unspecified; Z20.828 Contact with and (suspected) exposure to other viral communicable diseases; I27.22 Pulmonary hypertension due to left heart disease; D69.6 Thrombocytopenia, unspecified; Z79.01 Long term (current) use of anticoagulants; N18.3 Chronic kidney disease, stage 3 (moderate); J44.9 Chronic obstructive pulmonary disease, unspecified; I42.2 Other hypertrophic cardiomyopathy; K21.9 Gastro-esophageal reflux disease without esophagitis; G47.33 Obstructive sleep apnea (adult) (pediatric); E03.9 Hypothyroidism, unspecified; I08.3 Combined rheumatic disorders of mitral, aortic and tricuspid valves; E78.5 Hyperlipidemia, unspecified; R79.89 Other specified abnormal findings of blood chemistry; R79.1 Abnormal coagulation profile; M15.9 Polyosteoarthritis, unspecified; T45.515A Adverse effect of anticoagulants, initial encounter; Z71.3 Dietary counseling and surveillance; Z79.899 Other long term (current) drug therapy; Z79.890 Hormone replacement therapy; Z79.51 Long term (current) use of inhaled steroids; Z85.46 Personal history of malignant neoplasm of prostate; Z96.652 Presence of left artificial knee joint; Z90.49 Acquired absence of other specified parts of digestive tract; Z98.890 Other specified postprocedural states; Z87.891 Personal history of nicotine dependence; Z80.1 Family history of malignant neoplasm of trachea, bronchus and lung
CPT/HCPCS: 36415; 71046; 80048; 80053; 81001; 83880; 84484; 85025; 85610; 85730; 93005; 94640; 99285